=== PATIENT | female | born 1980 | race Caucasian/White ===

== ENCOUNTER 2017-05-26 16:51 | Emergency (ER) | payer SELFPAY | END 2017-05-26 19:28 | disposition home or self-care (01) | PROVIDERS: Emergency Provider Emergency Medicine; Visit Provider Emergency Medicine | DX: N83.201 Unspecified ovarian cyst, right side (principal); Z88.1 Allergy status to other antibiotic agents; Z88.6 Allergy status to analgesic agent; F17.210 Nicotine dependence, cigarettes, uncomplicated | CPT/HCPCS: 74176; 80053; 80305; 81001; 85025; 96360; 96375; 99284 ==

== ENCOUNTER → 2017-07-09 14:34 | Outpatient (CLI) | payer BC, SELFPAY ==
--- NOTE | 2017-07-09 14:50 | US_ITS ---
US transvaginal HISTORY: ITS.REASON: adnexal mass ORDERING PHYSICIAN: Zhen Rodriguez MD PATIENT AGE: 37 years COMPARISON: CT scan of 05/26/2017 FINDINGS: There has been a prior hysterectomy and left oophorectomy. The right ovary is visualized measuring 2 x 2.7 cm containing multiple small follicles and one complex cyst at 1.4 x 1.4 cm. Blood flow is present in the right ovary. No cul-de-sac fluid evident. IMPRESSION: 1.4 cm complex right ovarian cyst with other smaller follicles noted. Prior hysterectomy and left oophorectomy
== END ==
PROVIDERS: PCP Family Medicine; Visit Provider Obstetrics & Gynecology
DX: R10.2 Pelvic and perineal pain (principal)
CPT/HCPCS: 76830

== ENCOUNTER → 2017-07-23 14:03 | Outpatient (CLI) | payer BC, SELFPAY ==
[2017-07-23 14:07] LABS: Microscopic, Urine URINE MICROSCOPIC (MICROSCOPIC)
[2017-07-23 14:35] LABS: Appearance,Urine CLEAR (Clear); Bilirubin,Urine Negative (Negative); Blood, Urine Negative (Negative); Color,Urine YELLOW (Yellow); Glucose,Urine (UA) Negative (Negative); Ketones,Urine Negative (Negative); Leukocyte Esterase,Urine Negative (Negative); Nitrate,Urine Negative (Negative); Protein,Urine Negative (Negative); Urobilinogen,Urine 0.2 EU/dl (0.2)
[2017-07-23 14:54] LABS: Bacteria,Urine Trace /lpf
[2017-07-23 15:01] LABS: Basophils # 0.1 K/mm3 (0-0.2); Basophils % 0.7 % (0.1-2.0); Eosinophils # 0.2 K/mm3 (0.0-0.4); Eosinophils % 2.5 % (0.1-12.0); Hematocrit 41.5 % (37.0-47.0); Lymphocytes # 2.8 K/mm3 (0.7-4.5); Lymphocytes % 33.3 K/mm3 (10-50); Mean Corpuscular HGB Conc 33.6 g/dL (31.8-35.4); Mean Corpuscular Hemoglobin 29.6 pg (27.0-31.2); Mean Corpuscular Volume 87.9 fl (81-99); Mean Platelet Volume 8.2 fl (7.4-10.4); Monocytes # 0.4 K/mm3 (0.1-1.0); Monocytes % 4.6 % (1.7-9.3); Neutrophils # 4.9 K/mm3 (1.8-7.8); Neutrophils % 58.8 % (37.0-80.0); Platelet Count 317 K/mm3 (142-424); Red Blood Count 4.73 M/mm3 (4.20-5.40); White Blood Count 8.4 K/mm3 (4.8-10.8)
[2017-07-23 15:26] LABS: Alanine Aminotransferase 59 U/L (12-78); Albumin Level 3.9 gm/dL (3.4-5.0); Albumin/Globulin Ratio 1.2 (1.1-1.8); Alkaline Phosphatase 54 U/L (46-116); Anion Gap 11.9 mEq/L (5-15); Aspartate Amino Transferase 23 U/L (15-37); Bilirubin,Total 0.3 mg/dL (0.2-1.0); Blood Urea Nitrogen 13 mg/dL (7-18); Calcium 8.7 mg/dL (8.5-10.1); Carbon Dioxide 26 mmol/L (21.0-32.0); Chloride 105 mmol/L (98-107); Estimated Glomerular Filt Rate 82 ml/min (>60); GFR (African American) 99 ML/MIN (>60); Globulin 3.3 gm/dl (1.3-3.2); Glucose 87 mg/dL (74-106); Potassium 3.9 mmoL/L (3.5-5.1); Sodium 139 mmol/L (136-145); Total Protein,Serum 7.2 gm/dL (6.4-8.2)
== END ==
PROVIDERS: PCP Family Medicine; Visit Provider Obstetrics & Gynecology
DX: R10.2 Pelvic and perineal pain (principal); Z01.812 Encounter for preprocedural laboratory examination
CPT/HCPCS: 36415; 80053; 81001; 85025

== ENCOUNTER 2017-08-05 05:59 | Day surgery (SDC) | payer BC, SELFPAY ==
[2017-08-05] VITALS (13 sets, daily range): BP systolic 103–128; BP diastolic 56–88; PULSE 59–77; RESP 13–19; TEMP 36.2–43; O2SAT 93–100; BMI 31.4
--- NOTE | 2017-08-05 07:16 | HMH.ANESCL ---
[facility] Anesthesia Checklist - Patient Identification Patient Identification: Arm Band, Verbal (Name & ) - Structural Data Admitted From: Home Planned Operative Procedure/s: dx. lap Consent for Planned Operative Procedure(s) Verified: Yes Verified Documents: Surgical Consent - NPO Status Verified Time NPO: 00:00 - Chart Verification Results Verified: CBC, BMP - Additional verifications Patient : No Anesthesia Reactions: No Hx Blood Transfusions: No Blood Transfusion Reaction: No Cephalosporin Allergy: No Previous Colonoscopy: No - Cardiovascular Assessment Heart Sounds: S1 & S2 Pulse Strength: Baseline Pulse Rhythm: Regular Peripheral Edema: No - Airway Assessment C-Spine Mobility Assessed: Yes TMJ Mobility Assessed: Yes Dentition: Good Dentition - Neurological Assessment Level of Consciousness: Awake, Alert, Appropriate Hx Seizures: No Numbness or tingling in extremities: No - Anesthesia Plan Anesthesia Risk discussed: Yes Anesthesia Plan: Verified ASA Class: II Anesthesia Type: MAC [facility] Anesthesia HX I have reviewed the patient's past medical history: Yes Medical History: Reports:: Anxiety, Hepatitis Denies:: Cancer, Diabetes Mellitus Type 1, Diabetes Mellitus Type 2, MRSA, Seizures Other Medical History: Reports: Other. Denies: Blood Transfusion Reaction Laterality Cases: Bilateral: Tonsillectomy Other Surgeries: Yes: Colonoscopy, Dilation and Curettage, Hysterectomy-Partial, Ureter Stent Amputation: No Fractures: No *Family Hx:: Coronary Artery Disease, Cancer
--- NOTE | 2017-08-05 08:09 | HMH.OPNOTE ---
Date of procedure: 08/05/17 Pre-op Diagnosis:: 1. Pelvic pain. 2. Right ovarian cyst. Post-op Diagnosis:: 1. Pelvic pain. 2. Right ovarian cyst. 3. Endometriosis. Procedure performed:: Pelviscopic right salpingo-oophorectomy Surgeon:: Zhen Rodriguez MD [employer]IST:: Leo Maierferty Anesthesia: GETA Estimated blood loss (mL): 10 Operative findings:: 1. Right ovarian cyst. 2. Diffuse endometriosis. Operative note:: After the patient was prepped and draped in usual fashion and general anesthesia was administered, a weighted speculum was placed within the posterior fourchette of the vagina, and a moist sponge stick was inserted into the vagina for elevation of the vaginal cuff during the laparoscopy. After appropriate regloving, the skin on either side of the umbilicus was tented up with towel clips. A small incision was made in the base of the umbilicus with a knife, and a Veress needle was inserted into the abdominal cavity. After a demonstration of negative pressure, and adequate phisoperitoneum was created with carbon dioxide gas. The Veress needle was then replaced with a trocar and cannula, using the [employer] system, and the trocar placed with the laparoscope. The uterus and left adnexa was surgically absent. The right tube and ovary were identified. The ovary was cystic. Diffuse bluish implants of endometriosis were noted throughout the pelvis. The upper abdomen was explored. Liver and spleen edges were visible and felt to be normal, as was the appendix. After transillumination and under direct visualization, accessory ports were placed in the right and left lower quadrants. A second port was required in the left lower quadrant to enhance visibility. Using a combination of endo-Babcocks and Endo LYN staplers, the right adnexa was grasped and the right infundibulopelvic ligament was crossclamped and stapled, thus removing the right adnexa. There was no undue bleeding. An Endo Catch basket was placed to the right lower quadrant port, and the specimen was brought out through that port. The fascial peritoneum was then reduced, and the instruments were removed under direct visualization. The skin incisions were infused with a dilute solution of Marcaine, as a local anesthetic, and closed with subcuticular sutures of 3-0 Vicryl. The sponge stick was removed from the vagina. The estimated blood loss was less than 10 cc. The patient tolerated procedure well, and was taken to PACU in excellent condition. She will receive Delestrogen 30 mg IM in PACU. She will be discharged today, if her vital signs are stable. Condition: stable Disposition: same day Specimens:: Right adnexa Complications:: None
--- NOTE | 2017-08-05 08:14 | P.OP_ITS ---
Date of procedure: 08/05/17 Pre-op Diagnosis:: 1. Pelvic pain. 2. Right ovarian cyst. Post-op Diagnosis:: 1. Pelvic pain. 2. Right ovarian cyst. 3. Endometriosis. Procedure performed:: Pelviscopic right salpingo-oophorectomy Surgeon:: Zhen Rodriguez MD DE ICER:: Leo Maierferty Anesthesia: GETA Estimated blood loss (mL): 10 Operative findings:: 1. Right ovarian cyst. 2. Diffuse endometriosis. Operative note:: After the patient was prepped and draped in usual fashion and general anesthesia was administered, a weighted speculum was placed within the posterior fourchette of the vagina, and a moist sponge stick was inserted into the vagina for elevation of the vaginal cuff during the laparoscopy. After appropriate regloving, the skin on either side of the umbilicus was tented up with towel clips. A small incision was made in the base of the umbilicus with a knife, and a Veress needle was inserted into the abdominal cavity. After a demonstration of negative pressure, and adequate phisoperitoneum was created with carbon dioxide gas. The Veress needle was then replaced with a trocar and cannula, using the [employer] system, and the trocar placed with the laparoscope. The uterus and left adnexa was surgically absent. The right tube and ovary were identified. The ovary was cystic. Diffuse bluish implants of endometriosis were noted throughout the pelvis. The upper abdomen was explored. Liver and spleen edges were visible and felt to be normal, as was the appendix. After transillumination and under direct visualization, accessory ports were placed in the right and left lower quadrants. A second port was required in the left lower quadrant to enhance visibility. Using a combination of endo-Babcocks and Endo LYN staplers, the right adnexa was grasped and the right infundibulopelvic ligament was crossclamped and stapled, thus removing the right adnexa. There was no undue bleeding. An Endo Catch basket was placed to the right lower quadrant port, and the specimen was brought out through that port. The fascial peritoneum was then reduced, and the instruments were removed under direct visualization. The skin incisions were infused with a dilute solution of Marcaine, as a local anesthetic, and closed with subcuticular sutures of 3-0 Vicryl. The sponge stick was removed from the vagina. The estimated blood loss was less than 10 cc. The patient tolerated procedure well, and was taken to PACU in excellent condition. She will receive Delestrogen 30 mg IM in PACU. She will be discharged today, if her vital signs are stable. Condition: stable Disposition: same day Specimens:: Right adnexa Complications:: None
--- NOTE | 2017-08-05 08:22 | P.PN_ITS ---
[facility] Anesthesia Record Part I Intake, IV Amount: 550 Estimated blood loss (mL): 10 Urine output (mL): 10 Blood Products used (#): none Blood Pressure: 125/88 SaO2: 97 Pulse Rate: 70 Respiratory Rate: 18 Temperature: 97.7 F Patient is:: Awake, Drowsy Stable to PACU at:: 08:20
--- NOTE | 2017-08-05 08:22 | HMH.ANESII ---
[facility] Anesthesia Record Part II Discharge Time: 08:50 Destination: Surgical Day Care (OP Surgery) PACU nurse assessment reviewed?: Yes Patient Condition:: Good Anesthesia Complications:: None
[2017-08-05 09:42] LABS: Hematocrit 38.3 % (37.0-47.0); Hemoglobin 12.3 g/dL (12.2-16.2)
--- NOTE | 2017-08-05 18:21 | PC.NURSE ---
noted rash at IPC lines, legs and lower abdomen, Dr Rodriguez aware EUSEBIO
== END 2017-08-05 09:50 | disposition home or self-care (01) ==
LOC: OR 06:01
PROVIDERS: PCP Family Medicine; Visit Provider Obstetrics & Gynecology
PROC: (CPT 58661; principal; 2017-08-05 07:30)
DX: N83.201 Unspecified ovarian cyst, right side (principal); N80.3 Endometriosis of pelvic peritoneum
CPT/HCPCS: 58661; 36415; 85014; 85018; 96372; 96374; J0131; J1956; J2405; J2710

== ENCOUNTER 2017-08-06 19:42 | Emergency (ER) | payer BC, SELFPAY ==
[2017-08-06 19:48] VITALS: BP 128/62; PULSE 77; RESP 12; TEMP 36.4; O2SAT 98; BMI 31.4
[2017-08-06 20:49] LABS: Basophils # 0.1 K/mm3 (0-0.2); Basophils % 0.3 % (0.1-2.0); Eosinophils # 0.1 K/mm3 (0.0-0.4); Eosinophils % 0.5 % (0.1-12.0); Hematocrit 36.1 % (37.0-47.0); Hemoglobin 11.3 g/dL (12.2-16.2); Lymphocytes # 2.9 K/mm3 (0.7-4.5); Lymphocytes % 19.1 K/mm3 (10-50); Mean Corpuscular HGB Conc 31.1 g/dL (31.8-35.4); Mean Corpuscular Hemoglobin 28.7 pg (27.0-31.2); Mean Corpuscular Volume 92.1 fl (81-99); Mean Platelet Volume 8.5 fl (7.4-10.4); Monocytes # 0.5 K/mm3 (0.1-1.0); Neutrophils # 11.6 K/mm3 (1.8-7.8); Neutrophils % 77.1 % (37.0-80.0); Platelet Count 316 K/mm3 (142-424); Red Blood Count 3.92 M/mm3 (4.20-5.40); Red Cell Distribution Width 12.8 % (11.5-17.5); White Blood Count 15.1 K/mm3 (4.8-10.8)
[2017-08-06 21:13] LABS: MANUAL DIFFERENTIAL MANUAL DIFFERENTIAL (MANUAL DIFF)
[2017-08-06 21:16] LABS: Alanine Aminotransferase 39 U/L (12-78); Albumin Level 3.5 gm/dL (3.4-5.0); Albumin/Globulin Ratio 1.1 (1.1-1.8); Alkaline Phosphatase 52 U/L (46-116); Anion Gap 11.2 mEq/L (5-15); Aspartate Amino Transferase 16 U/L (15-37); Bilirubin,Total 0.3 mg/dL (0.2-1.0); Blood Urea Nitrogen 10 mg/dL (7-18); CKMB Relative Index 0.8 U/L (0-4.0); Calcium 8.2 mg/dL (8.5-10.1); Carbon Dioxide 26 mmol/L (21.0-32.0); Chloride 106 mmol/L (98-107); Creatine Kinase 212 U/L (26-192); Creatine Kinase MB 1.8 mg/ml (0.0-3.6); Creatinine Clearance Estimated 123 mL/min (0-300); Creatinine,Serum 0.92 mg/dL (0.55-1.02); Estimated Glomerular Filt Rate 69 ml/min (>60); GFR (African American) 84 ML/MIN (>60); Globulin 3.3 gm/dl (1.3-3.2); Glucose 96 mg/dL (74-106); Potassium 3.2 mmoL/L (3.5-5.1); Sodium 140 mmol/L (136-145); Total Protein,Serum 6.8 gm/dL (6.4-8.2); Troponin I < 0.02 ng/ml (0.00-0.06)
[2017-08-06 21:22] LABS: Eosinophils % 4 % (0-3); Lymphocytes % 22 % (10-50); Monocytes % 1 % (2-9); Neutrophils % 70 % (42-76); Platelet Estimate Normal; Total Cells Counted 100
[2017-08-06 21:23] LABS: Hypochromasia 1+; Polychromasia 1+; RBC Morphology Normal
--- NOTE | 2017-08-06 21:26 | HMH.EDGENADL ---
ED Disposition Clinical Impression: Vasovagal episode, Post-operative pain Disposition: Home, Self-Care Condition on Discharge: Good Instructions: DI for Acute Pain -- Adult Additional Instructions: call dr arango for follow up Referrals: Leo Mccain MD [Primary Care Provider] - - Critical Care Critical Care Time: No Attestation: On 08/06/17, the high probability of a clinically significant, sudden or life threatening deterioration of the following system(s) required my full and direct attention, intervention and personal management. The time I documented below is in addition to time spent performing reported procedures but includes the following listed in this critical care notation. Medical Decision Making - Medical Records Medical records reviewed: Yes: I reviewed the patient's medical records. Vital Signs: 08/06/17 19:48 08/06/17 21:45 Temperature 97.6 F Temperature Source Oral Pulse Rate [Right Radial] 77 57 L Respiratory Rate 12 16 Blood Pressure [Right Arm] 128/62 127/76 Blood Pressure Mean [Right Arm] 84 93 Blood Pressure Source [Right Arm] Automatic Cuff Automatic Cuff Blood Pressure Position [Right Arm] Sitting Supine 02 Sat by Pulse Oximetry 98 100 Oxygen Delivery Method Room Air Room Air - Lab Data Lab results reviewed: Yes: I reviewed the patient's lab results. Lab Results 08/06/17 20:05: Amylase 41, Lipase 105 08/06/17 20:15: WBC 15.1 H, RBC 3.92 L, Hgb 11.3 L, Hct 36.1 L, MCV 92.1, MCH 28.7, MCHC 31.1 L, RDW 12.8, Plt Count 316, MPV 8.5, Neut % (Auto) 77.1, Lymph % (Auto) 19.1, [place] % (Auto) 3.0, Eos % (Auto) 0.5, Baso % (Auto) 0.3, Neut # (Auto) 11.6 H, Lymph # (Auto) 2.9, [place] # (Auto) 0.5, Eos # (Auto) 0.1, Baso # (Auto) 0.1, Total Counted 100, Neutrophils % (Manual) 70, Band Neutrophils % 3.0, Lymphocytes % (Manual) 22, Monocytes % (Manual) 1 L, Eosinophils % (Manual) 4 H, Differential Comment , Platelet Estimate Normal, RBC Morphology Normal, Polychromasia 1+, Hypochromasia 1+ 08/06/17 20:15: Sodium 140, Potassium 3.2 L, Chloride 106, Carbon Dioxide 26, Anion Gap 11.2, BUN 10, Creatinine 0.92, Estimated Creat Clear 123, Estimated GFR 69, Est GFR ( Amer) 84, Glucose 96, Calcium 8.2 L, Total Bilirubin 0.3, AST 16, ALT 39, Alkaline Phosphatase 52, Total Creatine Kinase 212 H, CK-MB (CK-2) 1.8, CK-MB (CK-2) Rel Index 0.8, Troponin I < 0.02, Total Protein 6.8, Albumin 3.5, Globulin 3.3 H, Albumin/Globulin Ratio 1.1 08/06/17 20:15: Lactic Acid 2.0 08/06/17 21:50: Urine Color Yellow, Urine Appearance Clear, Urine pH 6.0, Ur Specific [place] >= 1.030, Urine Protein Trace, Urine Glucose (UA) Negative, Urine Ketones Trace, Urine Blood Negative, Urine Nitrate Negative, Urine Bilirubin 1+ A, Urine Urobilinogen 0.2, Ur Leukocyte Esterase Negative, Urine RBC Occasional, Urine WBC 3-5, Ur Squamous Epith Cells 20-50, Urine Bacteria 1+, Urine Mucus 2+ Result diagrams: 08/06/17 20:15 08/06/17 20:15 Orders (Tests/Meds): ED MEDICATIONS Generic Name Dose Route Start Last Admin Trade Name Freq PRN Reason Stop Dose Admin Oxycodone/Acetaminophen 1 each 08/06/17 23:02 Percocet 7.5/325mg Tablet PO 08/06/17 23:03 ONCE ONE Discontinued Medications Generic Name Dose Route Start Last Admin Trade Name Freq PRN Reason Stop Dose Admin Sodium Chloride 1,000 mls @ 999 mls/hr 08/06/17 20:15 08/06/17 20:48 Sod Chlor 0.9% 1000ml Bag IV 08/06/17 21:15 999 mls/hr .Q1H1M HUNG Administration Sodium Chloride 1,000 mls @ 999 mls/hr 08/06/17 22:00 08/06/17 22:00 Sod Chlor 0.9% 1000ml Bag IV 08/06/17 23:00 999 mls/hr .Q1H1M HUNG Administration ORDERS Category Date Time Status Blood Culture Stat Micro 08/06/17 20:15 Received - Physician Consults Physician Consulted: cipriano Reason -: Pt condition - Stew Inquiry Pt receiving controlled substance: No General Adult HPI - General Chief complaint: PAIN Stated complaint: surg:Seizier Time Seen by Elkin
--- NOTE | 2017-08-06 21:29 | ED_ITS ---
ED Disposition Clinical Impression: Vasovagal episode, Post-operative pain Disposition: Home, Self-Care Condition on Discharge: Good Instructions: DI for Acute Pain -- Adult Additional Instructions: call dr arango for follow up Referrals: Leo Mccain MD [Primary Care Provider] - - Critical Care Critical Care Time: No Attestation: On 08/06/17, the high probability of a clinically significant, sudden or life threatening deterioration of the following system(s) required my full and direct attention, intervention and personal management. The time I documented below is in addition to time spent performing reported procedures but includes the following listed in this critical care notation. Medical Decision Making - Medical Records Medical records reviewed: Yes: I reviewed the patient's medical records. Vital Signs: 08/06/17 19:48 08/06/17 21:45 Temperature 97.6 F Temperature Source Oral Pulse Rate [Right Radial] 77 57 L Respiratory Rate 12 16 Blood Pressure [Right Arm] 128/62 127/76 Blood Pressure Mean [Right Arm] 84 93 Blood Pressure Source [Right Arm] Automatic Cuff Automatic Cuff Blood Pressure Position [Right Arm] Sitting Supine 02 Sat by Pulse Oximetry 98 100 Oxygen Delivery Method Room Air Room Air - Lab Data Lab results reviewed: Yes: I reviewed the patient's lab results. Lab Results 08/06/17 20:05: Amylase 41, Lipase 105 08/06/17 20:15: WBC 15.1 H, RBC 3.92 L, Hgb 11.3 L, Hct 36.1 L, MCV 92.1, MCH 28.7, MCHC 31.1 L, RDW 12.8, Plt Count 316, MPV 8.5, Neut % (Auto) 77.1, Lymph % (Auto) 19.1, [place] % (Auto) 3.0, Eos % (Auto) 0.5, Baso % (Auto) 0.3, Neut # ( Auto) 11.6 H, Lymph # (Auto) 2.9, [place] # (Auto) 0.5, Eos # (Auto) 0.1, Baso # ( Auto) 0.1, Total Counted 100, Neutrophils % (Manual) 70, Band Neutrophils % 3.0 , Lymphocytes % (Manual) 22, Monocytes % (Manual) 1 L, Eosinophils % (Manual) 4 H, Differential Comment , Platelet Estimate Normal, RBC Morphology Normal, Polychromasia 1+, Hypochromasia 1+ 08/06/17 20:15: Sodium 140, Potassium 3.2 L, Chloride 106, Carbon Dioxide 26, Anion Gap 11.2, BUN 10, Creatinine 0.92, Estimated Creat Clear 123, Estimated GFR 69, Est GFR ( Amer) 84, Glucose 96, Calcium 8.2 L, Total Bilirubin 0.3, AST 16, ALT 39, Alkaline Phosphatase 52, Total Creatine Kinase 212 H, CK- MB (CK-2) 1.8, CK-MB (CK-2) Rel Index 0.8, Troponin I < 0.02, Total Protein 6.8 , Albumin 3.5, Globulin 3.3 H, Albumin/Globulin Ratio 1.1 08/06/17 20:15: Lactic Acid 2.0 08/06/17 21:50: Urine Color Yellow, Urine Appearance Clear, Urine pH 6.0, Ur Specific [place] >= 1.030, Urine Protein Trace, Urine Glucose (UA) Negative, Urine Ketones Trace, Urine Blood Negative, Urine Nitrate Negative, Urine Bilirubin 1+ A, Urine Urobilinogen 0.2, Ur Leukocyte Esterase Negative, Urine RBC Occasional, Urine WBC 3-5, Ur Squamous Epith Cells 20-50, Urine Bacteria 1+ , Urine Mucus 2+ Result diagrams: 08/06/17 20:15 08/06/17 20:15 Orders (Tests/Meds): ED MEDICATIONS Generic Name Dose Route Start Last Admin Trade Name Freq PRN Reason Stop Dose Admin Oxycodone/Acetaminophen 1 each 08/06/17 23:02 Percocet 7.5/325mg Tablet PO 08/06/17 23:03 ONCE ONE Discontinued Medications Generic Name Dose Route Start Last Admin Trade Name Freq PRN Reason Stop Dose Admin Sodium Chloride 1,000 mls @ 999 mls/hr 08/06/17 20:15 08/06/17 20:48 Sod Chlor 0.9% 1000ml Bag IV 08/06/17
[2017-08-06 21:45] VITALS: BP 127/76; PULSE 57; RESP 16; O2SAT 100
[2017-08-06 21:48] LABS: Amylase 41 U/L (25-125); Lipase 105 u/L (73-393)
[2017-08-06 21:54] LABS: Appearance,Urine CLEAR (Clear); Blood, Urine Negative (Negative); Color,Urine YELLOW (Yellow); Glucose,Urine (UA) Negative (Negative); Ketones,Urine TRACE (Negative); Leukocyte Esterase,Urine Negative (Negative); Microscopic, Urine URINE MICROSCOPIC (MICROSCOPIC); Nitrate,Urine Negative (Negative); Protein,Urine TRACE (Negative); Specific Gravity, Urine >= 1.030 (1.005-1.030); Urobilinogen,Urine 0.2 EU/dl (0.2)
[2017-08-06 21:55] LABS: Bilirubin,Urine 1+ (Negative)
[2017-08-06 22:01] LABS: Bacteria,Urine 1+ /lpf; Mucus,Urine 2+ /lpf; RBC,Urine Occasional #/hpf (0-3); Squamous Epithelial Cell,Urine 20-50 #/hpf (0-5)
--- NOTE | 2017-08-06 22:31 | PC.NURSE ---
scallop binder OB Dr. Gaytan at bedside at this time
[2017-08-06 23:11] VITALS: BP 114/75; PULSE 80; RESP 18; TEMP 36.7; O2SAT 98
== END 2017-08-06 23:16 | disposition home or self-care (01) ==
PROVIDERS: Emergency Medicine; Emergency Provider Emergency Medicine; PCP Family Medicine
DX: G89.18 Other acute postprocedural pain (principal); R55 Syncope and collapse; D64.9 Anemia, unspecified; M25.511 Pain in right shoulder; F41.9 Anxiety disorder, unspecified; F17.210 Nicotine dependence, cigarettes, uncomplicated; Z88.1 Allergy status to other antibiotic agents; Z88.6 Allergy status to analgesic agent
CPT/HCPCS: 80053; 81001; 82150; 82550; 82553; 83605; 83690; 84484; 85007; 85025; 87040; 93005; 96365; 96366; 99283

== ENCOUNTER 2019-10-24 09:20 | Emergency (ER) | payer MEDICAID, SELFPAY ==
[2019-10-24 09:24] VITALS: BP 121/86; PULSE 68; RESP 18; TEMP 36.7; O2SAT 99; BMI 28.1
--- NOTE | 2019-10-24 09:50 | HMH.EDNVD ---
ED Disposition Clinical Impression: Gastroenteritis Disposition: Home, Self-Care Condition on Discharge: Good Instructions: DI for Diarrhea and Traveler's Diarrhea -- Adult, DI for Diarrhea and Traveler's Diarrhea -- Child, DI for Nausea -- Adult, DI for Nausea -- Child Prescriptions: Ondansetron [Zofran 4mg ODT] 4 mg PO TID PRN 4 Days #15 tab.rapdis PRN Reason: Nausea Transmission Status: Received by [id number] Referrals: Damien Fofana APRN [Primary Care Provider] - - Critical Care Critical Care Time: No Attestation: On 10/24/19, the high probability of a clinically significant, sudden or life threatening deterioration of the following system(s) required my full and direct attention, intervention and personal management. The time I documented below is in addition to time spent performing reported procedures but includes the following listed in this critical care notation. Medical Decision Making - Medical Records Medical records reviewed: Yes: I reviewed the patient's medical records. - Stew Inquiry Pt receiving controlled substance: No Vital Signs: 10/24/19 09:24 Temperature 98.1 F Temperature Source Oral Pulse Rate [Radial] 68 Respiratory Rate 18 Blood Pressure [Right Arm] 121/86 Blood Pressure Mean [Right Arm] 97 Blood Pressure Source [Right Arm] Automatic Cuff Blood Pressure Position [Right Arm] Sitting 02 Sat by Pulse Oximetry 99 Oxygen Delivery Method Room Air - Lab Data Lab results reviewed: Yes: I reviewed the patient's lab results. Lab Results 10/24/19 09:45: WBC 9.7, RBC 5.01, Hgb 14.9, Hct 45.3, MCV 90.4, MCH 29.7, MCHC 32.9, RDW 13.8, Plt Count 296, MPV 8.4, Neut % (Auto) 57.1, Lymph % (Auto) 33.8, [place] % (Auto) 3.3, Eos % (Auto) 4.1, Baso % (Auto) 1.6, Neut # (Auto) 5.6, Lymph # (Auto) 3.3, [place] # (Auto) 0.3, Eos # (Auto) 0.4, Baso # (Auto) 0.2 10/24/19 09:45: Sodium 141, Potassium 4.0, Chloride 108 H, Carbon Dioxide 26, Anion Gap 11.0, BUN 15, Creatinine 0.80, Estimated Creat Clear 124, Estimated GFR 81, Est GFR ( Amer) 98, Glucose 81, Calcium 9.6, Total Bilirubin 0.5, AST 61 H, ALT 57, Alkaline Phosphatase 72, Total Protein 7.9, Albumin 4.6, Globulin 3.3 H, Albumin/Globulin Ratio 1.4 Result diagrams: 10/24/19 09:45 10/24/19 09:45 Orders (Tests/Meds): ED MEDICATIONS Generic Name Dose Route Start Last Admin Trade Name Freq PRN Reason Stop Dose Admin Sodium Chloride 1,000 mls @ 999 mls/hr 10/24/19 09:45 10/24/19 09:51 Sod Chlor 0.9% 1000ml Bag IV 10/24/19 10:45 999 mls/hr .Q1H1M HUNG Administration Discontinued Medications Generic Name Dose Route Start Last Admin Trade Name Freq PRN Reason Stop Dose Admin Ondansetron HCl 4 mg 10/24/19 09:36 10/24/19 09:50 Zofran 4mg/2ml Vial IV 10/24/19 09:37 4 mg ONCE ONE Administration Nausea/Vomiting/Diarrhea HPI - General Chief complaint: Nausea/Vomiting/Diarrhea Stated complaint: vomit diarrhea stomach pain Time Seen by Provider: 10/24/19 09:50 Mode of Arrival: Ambulatory Source of Information: Patient Limitations: No Limitations Description of Symptoms (Recalled from ER Triage Doc. by RN): States that she began vomiting with diarrhea approx. 1 hour ago. - History of Present Illness HPI Narrative: 39-year-old female presents the ED with acute nausea vomiting diarrhea. She states her symptoms started this morning and progressively gotten worse until she presented here to the ED. She describes some vague diffuse abdominal pain that is colicky in nature. She rates at its crescendo pains may be 2 out of 10. Patient denies any recent fever shakes or chills. Patient denies any shortness of breath or cough. - Related Data Previous Rx's Medication Instructions Recorded estradiol 2 mg tablet 2 mg PO DAILY 30 Days #30 tab 07/11/18 Ondansetron [Zofran 4mg ODT] 4 mg PO Q8H PRN 10 Days #30 02/15/19 tab.rapdis Ondansetron [Zofran 4mg ODT] 4 mg PO TID PRN 4 Days #
[2019-10-24 09:59] LABS: Basophils # 0.2 K/mm3 (0-0.2); Basophils % 1.6 % (0.1-2.0); Eosinophils # 0.4 K/mm3 (0.0-0.4); Eosinophils % 4.1 % (0.1-12.0); Hematocrit 45.3 % (37.0-47.0); Hemoglobin 14.9 g/dL (12.2-16.2); Lymphocytes # 3.3 K/mm3 (0.7-4.5); Lymphocytes % 33.8 % (10-50); Mean Corpuscular HGB Conc 32.9 g/dL (31.8-35.4); Mean Corpuscular Hemoglobin 29.7 pg (27.0-31.2); Mean Corpuscular Volume 90.4 fl (81-99); Mean Platelet Volume 8.4 fl (7.4-10.4); Monocytes # 0.3 K/mm3 (0.1-1.0); Monocytes % 3.3 % (1.7-9.3); Neutrophils # 5.6 K/mm3 (1.8-7.8); Neutrophils % 57.1 % (37.0-80.0); Platelet Count 296 K/mm3 (142-424); Red Blood Count 5.01 M/mm3 (4.20-5.40); Red Cell Distribution Width 13.8 % (11.5-17.5); White Blood Count 9.7 K/mm3 (4.8-10.8)
[2019-10-24 10:05] LABS: Chloride 108 mmol/L (98-107); Sodium 141 mmol/L (136-145)
[2019-10-24 10:07] LABS: Alanine Aminotransferase 57 U/L (12-78); Aspartate Amino Transferase 61 U/L (14-36); Blood Urea Nitrogen 15 mg/dl (7-17); Creatinine Clearance Estimated 124 mL/min (50-200); Estimated Glomerular Filt Rate 81 ml/min (>60); GFR (African American) 98 ML/MIN (>60)
[2019-10-24 10:08] LABS: Albumin Level 4.6 g/dl (3.5-5.0); Albumin/Globulin Ratio 1.4 (1.1-1.8); Alkaline Phosphatase 72 U/L (38-126); Bilirubin,Total 0.5 mg/dl (0.2-1.3); Calcium 9.6 mg/dl (8.4-10.2); Carbon Dioxide 26 mmol/L (22.0-30.0); Globulin 3.3 g/dL (1.3-3.2); Glucose 81 mg/dl (74-100); Total Protein,Serum 7.9 g/dl (6.3-8.2)
[2019-10-24 10:35] VITALS: BP 121/86; PULSE 68; RESP 18; TEMP 36.7; O2SAT 99
== END 2019-10-24 10:37 | disposition home or self-care (01) ==
PROVIDERS: Emergency Provider Family Medicine; PCP Nurse Practitioner Family
DX: K52.9 Noninfective gastroenteritis and colitis, unspecified (principal); F41.9 Anxiety disorder, unspecified; Z90.09 Acquired absence of other part of head and neck; F17.210 Nicotine dependence, cigarettes, uncomplicated
CPT/HCPCS: 80053; 85025; 96365; 96375; 99282; J2405

== ENCOUNTER 2019-11-27 10:31 | Emergency (ER) | payer MEDICAID, SELFPAY ==
[2019-11-27 10:45] VITALS: BP 102/59; PULSE 72; RESP 18; TEMP 36.7; O2SAT 98; BMI 29.0
[2019-11-27 11:02] VITALS: BP 106/57; PULSE 64; O2SAT 98
--- NOTE | 2019-11-27 11:33 | CT_ITS ---
PROCEDURE: CT ABDOMEN PELVIS WO CON CLINICAL INDICATION: diarrhea, nausea, abd pain COMPARISON: ABDPELW/O CT ABD PELVIS W/O CONTRAST from 05/26/2017 CT ABDOMEN PELVIS W CON from 05/12/2019 TECHNIQUE: Axial images obtained with sagittal and coronal reformats. All CT scans at the facility use one or more dose reduction, viz: automated exposure control, ma/kV adjustment per patient size (including targeted exams where dose is matched to indication, i.e. head), or iterative reconstruction technique. FINDINGS: LOWER THORAX: No acute finding ABDOMEN & PELVIS: The liver, spleen adrenal glands, pancreas, has an unremarkable appearance. There are nonobstructing punctate calculi the right kidney measuring up to 3 mm. Small hyperdensity is noted over the lower pole of the right kidney at 3 mm possibly due to small hyperdense cyst the. No ureteral calculi. No hydronephrosis. There is a small umbilical hernia containing fat. No evidence of appendicitis. There are post hysterectomy changes. No intestinal obstruction or free air. There is mild nonspecific thickening of the transverse and descending colon and sigmoid colon. Scattered small lymph nodes are present in the inguinal regions. No acute bony anomalies. IMPRESSION: Mild thickening of the transverse and descending and sigmoid colon which could be due to nondistention or mild colitis. Nonobstructing right nephrolithiasis Dictated by: Mateus Pedersen MD 11/27/2019 12:00 Electronically signed by Mateus Pedersen MD in [place] 11/27/2019 12:00
[2019-11-27 11:34] LABS: Basophils # 0.1 K/mm3 (0-0.2); Basophils % 0.8 % (0.1-2.0); Eosinophils # 0.4 K/mm3 (0.0-0.4); Hematocrit 39.9 % (37.0-47.0); Hemoglobin 14.1 g/dL (12.2-16.2); Lymphocytes # 3.2 K/mm3 (0.7-4.5); Lymphocytes % 31.6 % (10-50); Mean Corpuscular HGB Conc 35.3 g/dL (31.8-35.4); Mean Corpuscular Hemoglobin 30.9 pg (27.0-31.2); Mean Corpuscular Volume 87.5 fl (81-99); Mean Platelet Volume 8.9 fl (7.4-10.4); Monocytes # 0.3 K/mm3 (0.1-1.0); Monocytes % 2.7 % (1.7-9.3); Neutrophils # 6.1 K/mm3 (1.8-7.8); Neutrophils % 60.9 % (37.0-80.0); Platelet Count 291 K/mm3 (142-424); Red Blood Count 4.57 M/mm3 (4.20-5.40); Red Cell Distribution Width 13.5 % (11.5-17.5); White Blood Count 10.1 K/mm3 (4.8-10.8)
[2019-11-27 11:37] LABS: Chloride 107 mmol/L (98-107)
[2019-11-27 11:38] LABS: Potassium 4.3 mmoL/L (3.5-5.1); Sodium 137 mmol/L (136-145)
[2019-11-27 11:40] LABS: Alanine Aminotransferase 78 U/L (12-78); Aspartate Amino Transferase 65 U/L (14-36)
[2019-11-27 11:41] LABS: Albumin Level 4.2 g/dl (3.5-5.0); Albumin/Globulin Ratio 1.4 (1.1-1.8); Alkaline Phosphatase 55 U/L (38-126); Anion Gap 10.3 mEq/L (5-15); Bilirubin,Total 0.4 mg/dl (0.2-1.3); Carbon Dioxide 24 mmol/L (22.0-30.0); Globulin 2.9 g/dL (1.3-3.2); Glucose 123 mg/dl (74-100); Total Protein,Serum 7.1 g/dl (6.3-8.2)
[2019-11-27 11:45] LABS: Blood Urea Nitrogen 15 mg/dl (7-17)
[2019-11-27 11:46] LABS: Microscopic, Urine URINE MICROSCOPIC (MICROSCOPIC)
[2019-11-27 11:46] LABS: Creatinine Clearance Estimated 146 mL/min (50-200); Estimated Glomerular Filt Rate 94 ml/min (>60); GFR (African American) 114 ML/MIN (>60)
[2019-11-27 11:48] LABS: Appearance,Urine CLEAR (Clear); Bilirubin,Urine Negative (Negative); Blood, Urine Negative (Negative); Color,Urine YELLOW (Yellow); Glucose,Urine (UA) Negative (Negative); Ketones,Urine Negative (Negative); Leukocyte Esterase,Urine Negative (Negative); Nitrate,Urine Negative (Negative); Protein,Urine Negative (Negative); Specific Gravity, Urine 1.015 (1.005-1.030); Urobilinogen,Urine 0.2 EU/dl (0.2)
[2019-11-27 12:03] LABS: WBC,Urine Occasional #/hpf (0-3)
--- NOTE | 2019-11-27 13:07 | HMH.EDNVD ---
ED Disposition Clinical Impression: Colitis Disposition: Home, Self-Care Condition on Discharge: Good Instructions: DI for Nausea -- Adult, DI for Nausea -- Child, DI for Diarrhea and Traveler's Diarrhea -- Adult, DI for Diarrhea and Traveler's Diarrhea -- Child Prescriptions: Dicyclomine HCl [Bentyl 10mg capsule] 10 mg PO QID 8 Days #30 cap Transmission Status: Pending to [facility] Ciprofloxacin HCl [Cipro 500mg Tab] 500 mg PO BID 10 Days #20 tab Transmission Status: Pending to [facility] metroNIDAZOLE [Flagyl 500mg Tablet] 500 mg PO TID 10 Days #30 tab Transmission Status: Pending to [facility] Promethazine HCl 50 mg PO TID 6 Days #20 tab Transmission Status: Pending to [facility] Referrals: Damien Fofana APRN [Primary Care Provider] - - Critical Care Critical Care Time: No Attestation: On 11/27/19, the high probability of a clinically significant, sudden or life threatening deterioration of the following system(s) required my full and direct attention, intervention and personal management. The time I documented below is in addition to time spent performing reported procedures but includes the following listed in this critical care notation. Medical Decision Making - Medical Records Medical records reviewed: Yes: I reviewed the patient's medical records. - Stew Inquiry Pt receiving controlled substance: No Vital Signs: 11/27/19 10:45 11/27/19 11:02 Temperature 98.1 F Temperature Source Oral Pulse Rate [Left Radial] 72 64 Respiratory Rate 18 Blood Pressure [Left Arm] 102/59 L 106/57 L Blood Pressure Mean [Left Arm] 73 73 Blood Pressure Source [Left Arm] Automatic Cuff Automatic Cuff Blood Pressure Position [Left Arm] Supine Supine 02 Sat by Pulse Oximetry 98 98 Oxygen Delivery Method Room Air Room Air - Lab Data Lab results reviewed: Yes: I reviewed the patient's lab results. Lab Results 11/27/19 11:25: WBC 10.1, RBC 4.57, Hgb 14.1, Hct 39.9, MCV 87.5, MCH 30.9, MCHC 35.3, RDW 13.5, Plt Count 291, MPV 8.9, Neut % (Auto) 60.9, Lymph % (Auto) 31.6, [place] % (Auto) 2.7, Eos % (Auto) 4.0, Baso % (Auto) 0.8, Neut # (Auto) 6.1, Lymph # (Auto) 3.2, [place] # (Auto) 0.3, Eos # (Auto) 0.4, Baso # (Auto) 0.1 11/27/19 11:25: Sodium 137, Potassium 4.3, Chloride 107, Carbon Dioxide 24, Anion Gap 10.3, BUN 15, Creatinine 0.70, Estimated Creat Clear 146, Estimated GFR 94, Est GFR ( Amer) 114, Glucose 123 H, Calcium 9.0, Total Bilirubin 0.4, AST 65 H, ALT 78, Alkaline Phosphatase 55, Total Protein 7.1, Albumin 4.2, Globulin 2.9, Albumin/Globulin Ratio 1.4 11/27/19 11:42: Urine Color Yellow, Urine Appearance Clear, Urine pH 6.0, Ur Specific [place] 1.015, Urine Protein Negative, Urine Glucose (UA) Negative, Urine Ketones Negative, Urine Blood Negative, Urine Nitrate Negative, Urine Bilirubin Negative, Urine Urobilinogen 0.2, Ur Leukocyte Esterase Negative, Urine RBC 3-5, Urine WBC Occasional, Ur Squamous Epith Cells 3-5, Urine Bacteria None Result diagrams: 11/27/19 11:25 11/27/19 11:25 Orders (Tests/Meds): ED MEDICATIONS Discontinued Medications Generic Name Dose Route Start Last Admin Trade Name Freq PRN Reason Stop Dose Admin Ketorolac Tromethamine 30 mg 11/27/19 11:21 11/27/19 11:25 Toradol 30mg/Ml Vial IV 11/27/19 11:22 30 mg ONCE ONE Administration Ondansetron HCl 4 mg 11/27/19 11:22 11/27/19 11:25 Zofran 4mg/2ml Vial IV 11/27/19 11:23 4 mg ONCE ONE Administration - CT Data CT Scan: Abdomen, Pelvis Time Received: 12:00 Preliminary Findings: Abnormal (Colitis cold) Nausea/Vomiting/Diarrhea HPI - General Chief complaint: Nausea/Vomiting/Diarrhea Stated complaint: soa vomiting diarrhea Time Seen by Provider: 11/27/19 11:30 Mode of Arrival: Ambulatory Source of Information: Patient Limitations: No Limitations Description of Symptoms (Recalled from ER Triage Doc. by RN): Pt reports diarrhea and naus
[2019-11-27 13:24] VITALS: BP 112/74; PULSE 78; RESP 16; TEMP 36.6; O2SAT 98
== END 2019-11-27 13:26 | disposition home or self-care (01) ==
PROVIDERS: Emergency Provider Family Medicine; PCP Nurse Practitioner Family
DX: K52.9 Noninfective gastroenteritis and colitis, unspecified (principal); F41.9 Anxiety disorder, unspecified; Z90.09 Acquired absence of other part of head and neck; Z90.79 Acquired absence of other genital organ(s); F17.210 Nicotine dependence, cigarettes, uncomplicated; Z88.1 Allergy status to other antibiotic agents; Z88.5 Allergy status to narcotic agent
CPT/HCPCS: 74176; 80053; 81001; 85025; 96374; 96375; 99283; J2405

== ENCOUNTER 2020-01-15 13:57 | Emergency (ER) | payer MEDICAID, SELFPAY ==
[2020-01-15 14:26] VITALS: BP 113/74; PULSE 91; RESP 20; TEMP 36.7; O2SAT 98; BMI 23.5
--- NOTE | 2020-01-15 14:30 | HMH.EDUTC ---
[facility] [place] Disposition Clinical Impression: Poison ana paula dermatitis Disposition: Home, Self-Care Condition on Discharge: Good Instructions: Poisonous Plants: [place], [place], and [place]: Beware the Oils, Poison [place], Poison [place], Poison [place], Prednisone Additional Instructions: Over the counter Calamine lotion on rash may help to dry the rash and help with itching Over the counter Benadryl may help with itching Oatmeal bathes may help to dry the rash Start steriods tomorrow Do not scratch often cool compresses will help with itching Prescriptions: methylPREDNISolone [Medrol 4mg tab] 4 mg PO DIRECTED #21 tab Transmission Status: Sent to [facility] Referrals: Damien Fofana APRN [Primary Care Provider] - As needed Time of Disposition: 14:57 Medical Decision Making - Stew Inquiry Pt receiving controlled substance: No Stew was queried for this patient: No Vital Signs: 01/15/20 14:26 Temperature 98.0 F Temperature Source Oral Pulse Rate [Left Brachial] 91 H Respiratory Rate 20 Blood Pressure [Left Arm] 113/74 Blood Pressure Mean [Left Arm] 87 Blood Pressure Source [Left Arm] Automatic Cuff Blood Pressure Position [Left Arm] Sitting 02 Sat by Pulse Oximetry 98 Oxygen Delivery Method Room Air Orders (Tests/Meds): ED MEDICATIONS Discontinued Medications Generic Name Dose Route Start Last Admin Trade Name Jossie PRN Reason Stop Dose Admin Methylprednisolone Sodium Succinate 125 mg 01/15/20 14:30 01/15/20 14:39 Solu-Medrol 125mg/2ml Vial IM 01/15/20 14:31 125 mg ONCE ONE Administration [facility] HPI - General Stated complaint: rash Time Seen by Provider: 01/15/20 14:30 Mode of Arrival: Ambulatory Source of Information: Patient Limitations: No Limitations Description of Symptoms (Recalled from Triage Doc. by RN): PATIENT C/O RASH TO BLE, BUE, BACK AND BUTTOCK X 1 WEEK. UNKNOWN SOURCE. PATIENT STATES THE RASH STARTED AFTER SHE WENT CAMPING HEENT Symptoms (Recalled from RN notes): No Resp Symptoms (Recalled from RN notes): No Skin Symptoms (Recalled from RN notes): Yes MS Symptoms (Recalled from RN notes): No Functional Status (Recalled from RN notes): WNL - History of Present Illness Provider Complaint: Patient states that she thinks she has poison ana paula States that she recently went camping and when she got back she broke out with itchy rash on her buttock area, bilateral lower legs and arms States that she has tried over the counter benadryl, calamine lotion and hydrocortisone but hasn't helped much and rash has spread - Related Data Previous Rx's Medication Instructions Recorded methylPREDNISolone [Medrol 4mg 4 mg PO DIRECTED #21 tab 01/15/20 tab] Allergies Allergy/AdvReac Type Severity Reaction Status Date / Time cephalexin [CEPHALEXIN] Allergy Severe SWELLS Verified 07/28/18 16:24 THROAT Fish Containing Products Allergy Unknown I-HIVES Verified 07/28/18 16:24 [FISH CONTAINING PRODUCTS] orange juice [ORANGE JUICE] Allergy Unknown I-HIVES Verified 07/28/18 16:24 codeine [CODEINE] AdvReac Unknown MUSCLE Verified 07/28/18 16:24 SPASMS BANDAIDS Allergy Unknown RASH/SWELLI Uncoded 07/28/18 16:24 NG - Worker's Comp Is this a Worker's Comp case?: No [facility] History - Hepatitis A Screen Drug use history?: No High risk sexual behaviors?: No History of sexually transmitted infection?: No Currently employed?: No Childcare worker?: No Do you have indoor plumbing?: Yes Do you have electricity?: Yes Attestation statement:: This patient has been screened for Hepatitis A risk factors. I have reviewed the patient's past medical history: Yes Medical History: Reports:: Anxiety, Hepatitis Denies:: Cancer, Diabetes Mellitus Type 1, Diabetes Mellitus Type 2, MRSA, Seizures Other Medical History: Reports: Other. Denies: Blood Transfusion Reaction Comment: Seasonal Allergies. Anxiety. Ovarian Cysts NOS. Kidney Stones caused Sepsis Laterality Cases: Bi
[2020-01-15 14:56] VITALS: BP 113/74; PULSE 91; RESP 20; TEMP 36.7; O2SAT 98
== END 2020-01-15 14:58 | disposition home or self-care (01) ==
PROVIDERS: Emergency Provider Nurse Practitioner; PCP Nurse Practitioner Family
DX: L23.7 Allergic contact dermatitis due to plants, except food (principal); F41.9 Anxiety disorder, unspecified; F17.210 Nicotine dependence, cigarettes, uncomplicated; Z88.1 Allergy status to other antibiotic agents; Z88.5 Allergy status to narcotic agent; Z90.09 Acquired absence of other part of head and neck; Z90.79 Acquired absence of other genital organ(s)
CPT/HCPCS: 96372; 99201

== ENCOUNTER 2020-02-23 10:03 | Emergency (ER) | payer MEDICAID, SELFPAY ==
[2020-02-23 10:11] VITALS: BP 129/63; PULSE 61; RESP 18; TEMP 36.9; O2SAT 99; BMI 28.1
--- NOTE | 2020-02-23 10:18 | HMH.EDUTC ---
[facility] [place] Clinical Impression: Sinusitis Qualifiers: Sinusitis location: unspecified location Chronicity: acute Recurrence: non-recurrent Qualified Code(s): J01.90 - Acute sinusitis, unspecified Disposition: Home, Self-Care Condition on Discharge: Good Instructions: Sinusitis, DI for Sinusitis Additional Instructions: Drink plenty of fluids. Take tylenol or ibuprofen for pain or fever. Take the medications as directed. Follow up with your regular doctor. GO TO THE ER FOR ANY WORSENING SYMPTOMS Prescriptions: Brompheniramine/Pseudoephed/Dm [Bromfed Dm Cough Syrup] 5 ml PO Q6HP PRN #240 syrup PRN Reason: Cough Transmission Status: Received by [facility] methylPREDNISolone [Medrol] 4 mg PO DIRECTED 6 Days #21 tab.ds.pk Transmission Status: Received by [facility] Azithromycin [Z-Naveed 250mg Tab*] 250 mg PO UD DOSE PK #6 tab Transmission Status: Received by [facility] Referrals: Damien Fofana APRN [Primary Care Provider] - Time of Disposition: 10:25 Medical Decision Making - Medical Records Medical records reviewed: No: I reviewed the patient's medical records. - Stew Inquiry Pt receiving controlled substance: No Vital Signs: 02/23/20 10:11 Temperature 98.4 F Temperature Source Oral Pulse Rate [Radial] 61 Respiratory Rate 18 Blood Pressure [Right Arm] 129/63 Blood Pressure Mean [Right Arm] 85 Blood Pressure Source [Right Arm] Automatic Cuff Blood Pressure Position [Right Arm] Sitting 02 Sat by Pulse Oximetry 99 Oxygen Delivery Method Room Air [facility] [place] - General Stated complaint: ear pain stopped up Time Seen by Provider: 02/23/20 10:18 Mode of Arrival: Ambulatory Source of Information: Patient Limitations: No Limitations Description of Symptoms (Recalled from Triage Doc. by RN): right side of face and ear pain. Congested. States she thinks it is sinuses. HEENT Symptoms (Recalled from RN notes): Yes Resp Symptoms (Recalled from RN notes): No Skin Symptoms (Recalled from RN notes): No MS Symptoms (Recalled from RN notes): No Functional Status (Recalled from RN notes): wnl - History of Present Illness Provider Complaint: She c/o sinus congestion, right sided ear pain and sinus drainage for the past 3 days. She denies any known exposure to COVID-19. She denies fever or chills. She usually gets a sinus infection this time every year. - Related Data Previous Rx's Medication Instructions Recorded methylPREDNISolone [Medrol 4mg 4 mg PO DIRECTED #21 tab 01/15/20 tab] Azithromycin [Z-Naveed 250mg Tab*] 250 mg PO UD DOSE PK #6 tab 02/23/20 Brompheniramine/Pseudoephed/Dm 5 ml PO Q6HP PRN #240 syrup 02/23/20 [Bromfed Dm Cough Syrup] methylPREDNISolone [Medrol] 4 mg PO DIRECTED 6 Days #21 02/23/20 tab.ds.pk Allergies Allergy/AdvReac Type Severity Reaction Status Date / Time cephalexin [CEPHALEXIN] Allergy Severe SWELLS Verified 07/28/18 16:24 THROAT Fish Containing Products Allergy Unknown I-HIVES Verified 07/28/18 16:24 [FISH CONTAINING PRODUCTS] orange juice [ORANGE JUICE] Allergy Unknown I-HIVES Verified 07/28/18 16:24 codeine [CODEINE] AdvReac Unknown MUSCLE Verified 07/28/18 16:24 SPASMS BANDAIDS Allergy Unknown RASH/SWELLI Uncoded 07/28/18 16:24 NG - Worker's Comp Is this a Worker's Comp case?: No [facility] History - Hepatitis A Screen Drug use history?: No High risk sexual behaviors?: No History of sexually transmitted infection?: No Currently employed?: No Childcare worker?: No Do you have indoor plumbing?: Yes Do you have electricity?: Yes Attestation statement:: This patient has been screened for Hepatitis A risk factors. I have reviewed the patient's past medical history: Yes Medical History: Reports:: Anxiety, Hepatitis Denies:: Cancer, Diabetes Mellitus Type 1, Diabetes Mellitus Type 2, MRSA, Seizures Other Medical History: Reports: Other. Denies: Blood Transfusion Reaction Commen
[2020-02-23 10:33] VITALS: BP 129/63; PULSE 61; RESP 18; TEMP 36.9; O2SAT 99
== END 2020-02-23 10:34 | disposition home or self-care (01) ==
PROVIDERS: Emergency Provider Nurse Practitioner Family; PCP Nurse Practitioner Family
DX: J01.90 Acute sinusitis, unspecified (principal); F41.9 Anxiety disorder, unspecified; F17.210 Nicotine dependence, cigarettes, uncomplicated
CPT/HCPCS: 99201

== ENCOUNTER → 2020-03-15 19:13 | Outpatient (CLI) | payer MEDICAID, SELFPAY ==
[2020-03-15 19:40] LABS: Alanine Aminotransferase 98 U/L (12-78); Albumin Level 4.3 g/dl (3.5-5.0); Albumin/Globulin Ratio 1.5 (1.1-1.8); Alkaline Phosphatase 84 U/L (38-126); Anion Gap 11.3 mEq/L (5-15); Aspartate Amino Transferase 87 U/L (14-36); Bilirubin,Direct 0.2 mg/dl (0.0-0.4); Bilirubin,Indirect 0.3 mg/dL (0.0-0.9); Bilirubin,Total 0.5 mg/dl (0.2-1.3); Bilirubin,Unconjugated 0.3 mg/dL (0.0-1.1); Blood Urea Nitrogen 17 mg/dl (7-17); Calcium 9.6 mg/dl (8.4-10.2); Carbon Dioxide 25 mmol/L (22.0-30.0); Chloride 107 mmol/L (98-107); Estimated Glomerular Filt Rate 94 ml/min (>60); GFR (African American) 113 ML/MIN (>60); Globulin 2.8 g/dL (1.3-3.2); Glucose 97 mg/dl (74-100); Potassium 4.3 mmoL/L (3.5-5.1); Sodium 139 mmol/L (136-145); Total Protein,Serum 7.1 g/dl (6.3-8.2)
[2020-03-15 20:07] LABS: Thyroid Stimulating Hormone 0.84 uIU/mL (0.465-4.68)
[2020-03-20 15:45] LABS: Chol/HDL Ratio 3.1 (1-3.5); Cholesterol 191 mg/dl (140-200); HDL Cholesterol 61 mg/dl (40-60); Triglycerides 87 mg/dl (30-150); VLDL Cholesterol 17 mg/dL (0-40)
[2020-03-20 15:56] LABS: Direct LDL Cholesterol 113.94 mg/dL (100-129)
[2020-03-20 16:02] LABS: 25-OH Vitamin D, Total 37.4 ng/mL (30-100)
[2020-03-20 16:03] LABS: T4 (Thyroxine) 10.2 ug/dl (5.53-11.0)
== END ==
PROVIDERS: Visit Provider Nurse Practitioner Family
DX: R53.83 Other fatigue (principal); R10.31 Right lower quadrant pain; R19.7 Diarrhea, unspecified
CPT/HCPCS: 80053; 80061; 80076; 82306; 84436; 84443

== ENCOUNTER → 2020-03-16 14:04 | Outpatient (CLI) | payer MEDICAID, SELFPAY ==
[2020-03-16 14:15] LABS: Campylobacter Not Detected (NotDetected); Clostridium Difficile A/B, PCR Not Detected (NotDetected); Plesimonas Shigalloides, PCR Not Detected (NotDetected); Salmonella, PCR Not Detected (NotDetected); Vibrio, PCR Not Detected (NotDetected); Yersinia Entercolitica, PCR Not Detected (NotDetected)
[2020-03-16 14:16] LABS: Adenovirus F 40/41, stool Not Detected (NotDetected); Astrovirus Not Detected (NotDetected); Cryptosporidium Not Detected (NotDetected); Cyclospora Cayetanesis Not Detected (NotDetected); Entamoeba histolytica Not Detected (NotDetected); Enteroaggregative E coli Not Detected (NotDetected); Enteropathogenic E coli Not Detected (NotDetected); Enterotoxigenic E coli Not Detected (NotDetected); Giardia lamblia Not Detected (NotDetected); Norovirus Not Detected (NotDetected); Rotavirus A Not Detected (NotDetected); Sapovirus Not Detected (NotDetected); Shiga-like toxin E coli Not Detected (NotDetected); Shigella Enterovasive E coli Not Detected (NotDetected); Vibrio Cholerae Not Detected (NotDetected)
== END ==
PROVIDERS: PCP Nurse Practitioner Family; Visit Provider Nurse Practitioner Family
DX: R10.31 Right lower quadrant pain (principal); R19.7 Diarrhea, unspecified
CPT/HCPCS: 87507

== ENCOUNTER → 2020-03-22 13:55 | Outpatient (CLI) | payer MEDICAID, SELFPAY ==
[2020-03-22 14:20] LABS: Basophils # 0.1 K/mm3 (0-0.2); Basophils % 0.9 % (0.1-2.0); Eosinophils # 0.3 K/mm3 (0.0-0.4); Eosinophils % 2.4 % (0.1-12.0); Hematocrit 49.2 % (37.0-47.0); Hemoglobin 16.3 g/dL (12.2-16.2); Lymphocytes # 3.2 K/mm3 (0.7-4.5); Lymphocytes % 25.8 % (10-50); Mean Corpuscular HGB Conc 33.2 g/dL (31.8-35.4); Mean Corpuscular Hemoglobin 30.4 pg (27.0-31.2); Mean Corpuscular Volume 91.6 fl (81-99); Mean Platelet Volume 10.4 fl (7.4-10.4); Monocytes # 0.5 K/mm3 (0.1-1.0); Neutrophils # 8.3 K/mm3 (1.8-7.8); Neutrophils % 66.9 % (37.0-80.0); Platelet Count 374 K/mm3 (142-424); Red Blood Count 5.36 M/mm3 (4.20-5.40); Red Cell Distribution Width 13.9 % (11.5-17.5); White Blood Count 12.4 K/mm3 (4.8-10.8)
== END ==
PROVIDERS: Visit Provider Nurse Practitioner Family
DX: R53.83 Other fatigue (principal)
CPT/HCPCS: 85025

== ENCOUNTER 2020-04-27 16:02 | Emergency (ER) | payer MEDICAID, SELFPAY ==
[2020-04-27 16:24] VITALS: BP 108/77; PULSE 67; RESP 19; TEMP 36.9; O2SAT 100; BMI 27.8
--- NOTE | 2020-04-27 16:29 | HMH.EDUTC ---
[facility] [place] Disposition Clinical Impression: Bronchitis Sinusitis Qualifiers: Sinusitis location: other Chronicity: unspecified Qualified Code(s): J32.9 - Chronic sinusitis, unspecified Disposition: Home, Self-Care Condition on Discharge: Good Instructions: Sinusitis, Sinus Headache, DI for Sinusitis, Acute Bronchitis Additional Instructions: ? Start antibiotic today. Be sure to complete entire prescription even if feeling better ? Monitor temp. Tylenol every 4 hours as needed and / or ibuprofen every 6 hours as needed ( As long as your primary care physician has told you that it ok to take both. For fever/aches/pains ER if no less than 101 despite Tylenol or Motrin ? Humidifier/vaporizer or hot steamy shower ? Inhaler every 4-6 hours as needed like we discussed. If unsure how to use it, ask pharmacist to demonstrate how. Should help open airways and improve cough, wheezing, and shortness of breath ? Mucinex during the day for your cough and cough suppressant only at night. Be sure to drink lots of water. Insurance may not cover a prescriptions for mucinex. Might be cheaper to get 400mg tablets and take 2 tablet in the morning, mid-day and evening with lots of water. Start steroid today. Helps with inflammation therefore, cough and wheezing. Follow directions on the package. Reviewed side effects. Patient reports taking them before. Follow up IMMEDIATELY for new or worsening of symptoms OR no noticeable improvement over the next 48-72 hours. 911 immediately for any life threatening symptoms such as chest pain or difficulty breathing Prescriptions: Albuterol Sulfate [Proventil-HFA 90mcg/puff Inh] 1 - 2 puffs IH Q4HP PRN #1 inh PRN Reason: Shortness Of Breath Transmission Status: Pending to [facility] methylPREDNISolone [Medrol 4mg tab] 4 mg PO DIRECTED #21 tab Transmission Status: Pending to [facility] Azithromycin [Z-Naveed 250mg Tab] 250 mg PO DIRECTED #6 tab [facility] Referrals: James Suarez MD [Primary Care Provider] - As needed Forms: Work/School Release Time of Disposition: 16:36 Medical Decision Making - Stew Inquiry Pt receiving controlled substance: No Stew was queried for this patient: No Vital Signs: 04/27/20 16:24 Temperature 98.4 F Temperature Source Oral Pulse Rate [Left Brachial] 67 Respiratory Rate 19 Blood Pressure [Right Arm] 108/77 L Blood Pressure Mean [Right Arm] 87 Blood Pressure Source [Right Arm] Automatic Cuff Blood Pressure Position [Right Arm] Sitting 02 Sat by Pulse Oximetry 100 Orders (Tests/Meds): ORDERS Category Date Time Status Covid-19 Nasal PCR ([facility]) Routine Lab 04/27/20 16:29 Ordered [facility] [place] HPI - General Stated complaint: PAULA,Cough,SOB Time Seen by Provider: 04/27/20 16:29 Description of Symptoms (Recalled from Triage Doc. by RN): Pt states she is SOB and has had a cough since this morning HEENT Symptoms (Recalled from RN notes): No Resp Symptoms (Recalled from RN notes): Yes Skin Symptoms (Recalled from RN notes): No MS Symptoms (Recalled from RN notes): No Functional Status (Recalled from RN notes): wnl - History of Present Illness Provider Complaint: Patient states that she has been having cough, sinus congestion and earlier she was coughing so much felt like she couldnt catch her breath States that she hasnt had a fever that she was aware of and felt like she was having some sinus pressure behind her eyes. - Related Data Previous Rx's Medication Instructions Recorded Albuterol Sulfate [Proventil-HFA 1 - 2 puffs IH Q4HP PRN #1 inh 04/27/20 90mcg/puff Inh] Azithromycin [Z-Naveed 250mg Tab] 250 mg PO DIRECTED #6 tab 04/27/20 methylPREDNISolone [Medrol 4mg 4 mg PO DIRECTED #21 tab 04/27/20 tab] Allergies Allergy/AdvReac Type Severity Reaction Status Date / Time cephalexin [CEPHALEXIN] Allergy Severe SWELLS Verified 03/15/20 10:16 THROAT Fi
[2020-04-27 16:56] VITALS: BP 108/77; PULSE 67; RESP 19; TEMP 36.9; O2SAT 100
== END 2020-04-27 16:57 | disposition home or self-care (01) ==
PROVIDERS: Emergency Provider Nurse Practitioner; PCP Emergency Medicine
DX: Z20.828 Contact with and (suspected) exposure to other viral communicable diseases (principal); J20.9 Acute bronchitis, unspecified; J32.9 Chronic sinusitis, unspecified; F41.9 Anxiety disorder, unspecified; F17.210 Nicotine dependence, cigarettes, uncomplicated
CPT/HCPCS: 99201; U0003

== ENCOUNTER 2020-05-17 13:07 | Emergency (ER) | payer MEDICAID, SELFPAY ==
[2020-05-17 13:08] VITALS: BP 134/85; PULSE 71; RESP 15; TEMP 36.9; O2SAT 97; BMI 29.0
--- NOTE | 2020-05-17 13:23 | CT_ITS ---
PROCEDURE: CT ABDOMEN PELVIS W CON CLINICAL INDICATION: Mid to lower abdominal pain, right lower abdominal pain COMPARISON: CT CT ABDOMEN PELVIS WO CON from 11/27/2019 TECHNIQUE: IV Contrast: 75ML Isovue 370 Oral Contrast None Axial images obtained with sagittal and coronal reformats. All CT scans at the facility use one or more dose reduction, viz: automated exposure control, ma/kV adjustment per patient size (including targeted exams where dose is matched to indication, i.e. head), or iterative reconstruction technique. FINDINGS: LOWER THORAX: No acute finding ABDOMEN & PELVIS: Liver, gallbladder, spleen, adrenal glands, pancreas, and kidneys have an unremarkable appearance. No renal or ureteral calculi. No hydronephrosis. No evidence of appendicitis. There has been a prior hysterectomy. No intestinal obstruction or free air. There is a tiny umbilical hernia containing fat. There are few small peritoneal and retroperitoneal lymph nodes which are nonspecific. No acute bony findings. IMPRESSION: No acute finding Dictated by: Mateus Pedersen MD 05/17/2020 14:32 Mateus Pedersen MD in [place] 05/17/2020 14:32
[2020-05-17 13:56] LABS: Basophils # 0.1 K/mm3 (0-0.2); Basophils % 0.8 % (0.1-2.0); Eosinophils # 0.2 K/mm3 (0.0-0.4); Eosinophils % 2.3 % (0.1-12.0); Hematocrit 42.7 % (37.0-47.0); Hemoglobin 13.7 g/dL (12.2-16.2); Lymphocytes # 2.5 K/mm3 (0.7-4.5); Lymphocytes % 27.2 % (10-50); Mean Corpuscular HGB Conc 32.1 g/dL (31.8-35.4); Mean Corpuscular Hemoglobin 29.9 pg (27.0-31.2); Mean Corpuscular Volume 93.4 fl (81-99); Mean Platelet Volume 8.3 fl (7.4-10.4); Monocytes # 0.3 K/mm3 (0.1-1.0); Monocytes % 3.1 % (1.7-9.3); Neutrophils # 6.1 K/mm3 (1.8-7.8); Neutrophils % 66.6 % (37.0-80.0); Platelet Count 308 K/mm3 (142-424); Red Blood Count 4.57 M/mm3 (4.20-5.40); Red Cell Distribution Width 13.3 % (11.5-17.5); White Blood Count 9.1 K/mm3 (4.8-10.8)
[2020-05-17 13:58] LABS: Chloride 109 mmol/L (98-107); Sodium 140 mmol/L (136-145)
[2020-05-17 14:01] LABS: Alanine Aminotransferase 74 U/L (12-78); Albumin Level 4.5 g/dl (3.5-5.0); Albumin/Globulin Ratio 1.5 (1.1-1.8); Alkaline Phosphatase 68 U/L (38-126); Aspartate Amino Transferase 59 U/L (14-36); Bilirubin,Total 0.6 mg/dl (0.2-1.3); Blood Urea Nitrogen 14 mg/dl (7-17); Calcium 9.6 mg/dl (8.4-10.2); Carbon Dioxide 25 mmol/L (22.0-30.0); Creatinine Clearance Estimated 144 mL/min (50-200); Estimated Glomerular Filt Rate 94 ml/min (>60); GFR (African American) 113 ML/MIN (>60); Globulin 3.1 g/dL (1.3-3.2); Glucose 115 mg/dl (74-100); Total Protein,Serum 7.6 g/dl (6.3-8.2)
[2020-05-17 14:07] LABS: C-Reactive Protein 1.1 mg/L (0-4)
[2020-05-17 14:20] LABS: Erythrocyte Sedimentation Rate 13 mm/hr (0-20)
[2020-05-17 14:30] LABS: Microscopic, Urine URINE MICROSCOPIC (MICROSCOPIC)
[2020-05-17 14:33] LABS: Appearance,Urine CLEAR (Clear); Bilirubin,Urine Negative (Negative); Blood, Urine Negative (Negative); Color,Urine YELLOW (Yellow); Glucose,Urine (UA) Negative (Negative); Ketones,Urine Negative (Negative); Leukocyte Esterase,Urine Negative (Negative); Nitrate,Urine Negative (Negative); Protein,Urine Negative (Negative); Specific Gravity, Urine <= 1.005 (1.005-1.030); Urobilinogen,Urine 0.2 EU/dl (0.2)
[2020-05-17 14:34] LABS: Occult Blood,Stool Positive (Negative)
--- NOTE | 2020-05-17 15:05 | HMH.EDNVD ---
ED Disposition Clinical Impression: GI (gastrointestinal bleed) Qualifiers: GI bleed type/associated pathology: unspecified gastrointestinal hemorrhage type Qualified Code(s): K92.2 - Gastrointestinal hemorrhage, unspecified Abdominal pain Qualifiers: Abdominal location: generalized Qualified Code(s): R10.84 - Generalized abdominal pain Disposition: Home, Self-Care Condition on Discharge: Good Instructions: DI for Acute Abdominal Pain Additional Instructions: see pcp for follow up Prescriptions: Dicyclomine HCl [Bentyl 10mg capsule] 10 mg PO TID #30 cap Transmission Status: Pending to [facility] Referrals: Damien Fofana APRN [Primary Care Provider] - - Critical Care Critical Care Time: No Attestation: On 05/17/20, the high probability of a clinically significant, sudden or life threatening deterioration of the following system(s) required my full and direct attention, intervention and personal management. The time I documented below is in addition to time spent performing reported procedures but includes the following listed in this critical care notation. Medical Decision Making - Medical Records Medical records reviewed: Yes: I reviewed the patient's medical records. - Stew Inquiry Pt receiving controlled substance: No Vital Signs: 05/17/20 13:08 Temperature 98.5 F Temperature Source Oral Pulse Rate [Radial] 71 Respiratory Rate 15 Blood Pressure [Right Arm] 134/85 Blood Pressure Mean [Right Arm] 101 Blood Pressure Position [Right Arm] Sitting 02 Sat by Pulse Oximetry 97 Oxygen Delivery Method Room Air - Lab Data Lab results reviewed: Yes: I reviewed the patient's lab results. Lab Results 05/17/20 13:23: Urine Color Yellow, Urine Appearance Clear, Urine pH 6.0, Ur Specific [place] <= 1.005, Urine Protein Negative, Urine Glucose (UA) Negative, Urine Ketones Negative, Urine Blood Negative, Urine Nitrate Negative, Urine Bilirubin Negative, Urine Urobilinogen 0.2, Ur Leukocyte Esterase Negative, Urine RBC None, Urine WBC None, Ur Squamous Epith Cells None, Urine Bacteria None 05/17/20 13:45: WBC 9.1, RBC 4.57, Hgb 13.7, Hct 42.7, MCV 93.4, MCH 29.9, MCHC 32.1, RDW 13.3, Plt Count 308, MPV 8.3, Neut % (Auto) 66.6, Lymph % (Auto) 27.2, [place] % (Auto) 3.1, Eos % (Auto) 2.3, Baso % (Auto) 0.8, Neut # (Auto) 6.1, Lymph # (Auto) 2.5, [place] # (Auto) 0.3, Eos # (Auto) 0.2, Baso # (Auto) 0.1 05/17/20 13:45: Sodium 140, Potassium 4.0, Chloride 109 H, Carbon Dioxide 25, Anion Gap 10.0, BUN 14, Creatinine 0.70, Estimated Creat Clear 144, Estimated GFR 94, Est GFR ( Amer) 113, Glucose 115 H, Calcium 9.6, Total Bilirubin 0.6, AST 59 H, ALT 74, Alkaline Phosphatase 68, C-Reactive Protein 1.1, Total Protein 7.6, Albumin 4.5, Globulin 3.1, Albumin/Globulin Ratio 1.5 05/17/20 13:45: ESR 13 05/17/20 14:21: Stool Occult Blood Positive A Result diagrams: 05/17/20 13:45 05/17/20 13:45 Orders (Tests/Meds): ED MEDICATIONS Discontinued Medications Generic Name Dose Route Start Last Admin Trade Name Freq PRN Reason Stop Dose Admin Sodium Chloride 1,000 mls @ 999 mls/hr 05/17/20 14:00 05/17/20 14:04 Sod Chlor 0.9% 1000ml Bag IV 05/17/20 15:00 999 mls/hr .Q1H1M HUNG Administration Iopamidol 75 ml 05/17/20 13:54 05/17/20 13:55 Iopamidol-370 (76%);100ml Bottle IV 05/17/20 13:55 75 ml ONCE ONE Administration Ondansetron HCl 4 mg 05/17/20 14:13 05/17/20 14:17 Ondansetron 4mg/2ml Vial IV 05/17/20 14:14 4 mg ONCE ONE Administration Sodium Chloride 10 ml 05/17/20 13:54 05/17/20 13:55 Sodium Chloride 0.9% 10ml Syr (Rad Only) IV 05/17/20 13:55 10 ml ONCE ONE Administration - CT Data CT Scan: Abdomen, Pelvis Time Received: 15:[address] Reviewed: Yes: I have viewed the radiologist's interpretation Preliminary Findings: Abnormal - Reevaluation(s) Time: 15:26 Reevaluation #1: better Medical Decision Narrative: has pending appt with gi Sam
[2020-05-17 15:39] VITALS: BP 135/74; PULSE 78; RESP 16; TEMP 36.6; O2SAT 98
== END 2020-05-17 15:41 | disposition home or self-care (01) ==
PROVIDERS: Emergency Provider Emergency Medicine; PCP Nurse Practitioner Family
DX: K92.2 Gastrointestinal hemorrhage, unspecified (principal); R10.84 Generalized abdominal pain; F41.9 Anxiety disorder, unspecified; F17.210 Nicotine dependence, cigarettes, uncomplicated; Z87.442 Personal history of urinary calculi; Z90.79 Acquired absence of other genital organ(s); Z88.8 Allergy status to other drugs, medicaments and biological substances
CPT/HCPCS: 74177; 80053; 81001; 82272; 85025; 85651; 86140; 96365; 96375; 96376; 99283; G0328; J2405; Q9967

== ENCOUNTER → 2020-06-24 15:27 | Outpatient (POV) | payer MEDICAID, SELFPAY | PROVIDERS: Visit Provider Nurse Practitioner Family | DX: Z00.00 Encounter for general adult medical examination without abnormal findings (principal) ==

== ENCOUNTER 2020-07-29 11:25 | Day surgery (SDC) | payer MEDICAID, SELFPAY ==
[2020-07-23 13:52] VITALS: BMI 28.1
[2020-07-29 12:09] LABS: Urine Pregnancy, HCG Qual. Negative (Negative)
[2020-07-29 12:30] VITALS: BP 129/75; PULSE 80; RESP 18; TEMP 36.8; O2SAT 100
[2020-07-29 12:37] LABS: Coronavirus 19 IgG Antibody Negative (Negative); Coronavirus 19 IgM Antibody Negative (Negative)
[2020-07-29 13:42] VITALS: O2SAT 97
--- NOTE | 2020-07-29 13:55 | HMH.ANESCL ---
[facility] Anesthesia Checklist - Patient Identification Patient Identification: Arm Band, Verbal (Name & ) - Structural Data Admitted From: Home Planned Operative Procedure/s: colonoscopy Consent for Planned Operative Procedure(s) Verified: Yes Verified Documents: Surgical Consent, History and Physical - NPO Status Verified Time NPO: 00:00 - Chart Verification Results Verified: None - Additional verifications Patient : No Anesthesia Reactions: No Hx Blood Transfusions: No Blood Transfusion Reaction: No - Cardiovascular Assessment Heart Sounds: S1 & S2 Peripheral Edema: No - Airway Assessment C-Spine Mobility Assessed: Yes Dentition: Poor Dentition - Neurological Assessment Level of Consciousness: Awake, Alert, Appropriate, Follows Commands - Anesthesia Plan Anesthesia Risk discussed: Yes ASA Class: II Anesthesia Type: MAC [facility] History I have reviewed the patient's past medical history: Yes Medical History: Reports:: Anxiety, Hepatitis Denies:: Cancer, Diabetes Mellitus Type 1, Diabetes Mellitus Type 2, Internal Pacemaker, MRSA, Seizures *Have you ever received a pneumonia vaccine?: No *Have you received a flu vaccine this season?: No Other Medical History: Reports: Other. Denies: Blood Transfusion Reaction Anesthesia experience/problems:: nc Laterality Cases: Right: Carpal Tunnel Release, Bilateral: Tonsillectomy Other Surgeries: Yes: Colonoscopy, Dilation and Curettage, Hysterectomy-Partial, Ureter Stent. No: Pacemaker Amputation: No Fractures: Yes (right foot) - *Social History Last grade of school completed: High school graduate Smoking Status: Current every day smoker Tobacco Type: cigarettes # Packs/Day (cigarettes): 1 Alcohol Intake: current Alcohol Intake Frequency:: holidays/special occasions only Substance Use Type: heroin, opiates *Occupational Status:: employed Housing: house Household Members: family *Travel in the last 8 weeks: None - Psychiatric History Pschychiatric History:: Reports:: Anxiety Family Hx:: Cancer, Diabetes, Hypertension
[2020-07-29 14:05] VITALS: BP 110/60; PULSE 76; RESP 16; TEMP 36.2; O2SAT 100
--- NOTE | 2020-07-29 14:05 | HMH.PROC ---
[facility] Procedure Note Procedure Note:: Colonoscopy Procedure Report: Colonoscopy with cold biopsies and monopolar ablation/coagulation of internal hemorrhoids Endoscopist: Teo Pittman II, MD Referring physician: MARGOT Horner Date of Procedure: July 29, 2020 Equipment: Olympus 180 variable stiffness pediatric colonoscope Sedation: MAC sedation Indication: Mrs. Zimmerman is a 40-year-old female with bright red rectal bleeding that began a couple of months ago. She also has had diarrhea and lower abdominal pain and discomfort. Her PCR gastrointestinal stool panel was negative for pathogens. Her CAT scan showed some mild thickening of the transverse, descending and sigmoid colon. This was interpreted as possible nondistention of the colon versus mild colitis. She has had some intermittent black stools. In the past she has used Bentyl (dicyclomine) which resulted in some constipation. The patient does state that her paternal grandmother was diagnosed with colon cancer in her 80s. She has an aunt and 2 first cousins with Crohn's disease. This is her first colonoscopy and is performed for diagnostic purposes. Procedure: Prior to the procedure, a history and physical exam was performed, and patient's medications and allergies were reviewed. The risks, benefits and alternatives of the sedation and procedure were discussed with the patient. All questions were answered and informed consent was obtained. The patient was brought to the procedure room. Patient identification and proposed procedure were verified by the physician and the nurse. The patient was placed in a left lateral decubitus position and the scope was passed under direct vision. Throughout the procedure, the patient's blood pressure, pulse, and oxygen saturations were monitored continuously. The colonoscopy was accomplished without difficulty. The patient tolerated the procedure well. Findings: On digital rectal examination there was normal rectal tone. There were no external hemorrhoids. The colonoscope was introduced through the anal canal to the rectum and advanced to the cecum. The ileocecal valve and appendiceal orifice were identified. The scope was advanced a short distance into the ileum which appeared grossly normal. The scope was then withdrawn into the colon. The cecum, ascending, transverse, descending, sigmoid and rectum were grossly normal. There were no mucosal abnormalities identified. Random cold biopsies were taken from the colon to rule out microscopic colitis. Upon retroflexion within the rectum there were grade 1-2 internal hemorrhoids.3 columns of the hemorrhoids were coagulated/ablated using monopolar ablation to destruction. The preparation was excellent throughout with [employer] Preparation Score of 9. The cecal time was 10 minutes. Impression: 1. Normal colonoscopy with intubation of the terminal ileum 2. Grade 1-2 internal hemorrhoids status post monopolar ablation/coagulation Plan: I would encourage dietary measures, bulk fiber (FiberCon) and probiotic. I would also consider IBgard. We will discuss additional treatment options today and I will follow-up the biopsies.
[2020-07-29 14:15] VITALS: BP 99/66; PULSE 71; RESP 16; O2SAT 99
[2020-07-29 14:25] VITALS: BP 114/78; PULSE 69; RESP 16; O2SAT 100
[2020-07-29 14:35] VITALS: BP 124/80; PULSE 74; RESP 16; TEMP 36.2; O2SAT 100
== END 2020-07-29 14:36 | disposition home or self-care (01) ==
LOC: OUTP 11:26
PROVIDERS: PCP Nurse Practitioner Family; Visit Provider Internal Medicine Gastroenterology
PROC: 0DJD8ZZ Inspection of Lower Intestinal Tract, Via Natural or Artificial Opening Endoscopic (ICD-10-PCS; CPT 45378; principal; 2020-07-29 12:30)
DX: K64.0 First degree hemorrhoids (principal); K59.03 Drug induced constipation; T44.3X5A Adverse effect of other parasympatholytics [anticholinergics and antimuscarinics] and spasmolytics, initial encounter; K92.1 Melena; R19.7 Diarrhea, unspecified; F41.9 Anxiety disorder, unspecified; K75.9 Inflammatory liver disease, unspecified; Z72.0 Tobacco use; F11.90 Opioid use, unspecified, uncomplicated; Z80.9 Family history of malignant neoplasm, unspecified; Z83.3 Family history of diabetes mellitus; Z82.49 Family history of ischemic heart disease and other diseases of the circulatory system
CPT/HCPCS: 46930; 45380; 36415; 81025; 86328

== ENCOUNTER → 2020-09-09 10:06 | Outpatient (CLI) | payer MEDICAID, SELFPAY ==
[2020-09-09 11:28] LABS: Chloride 111 mmol/L (98-107); Potassium 4.2 mmoL/L (3.5-5.1); Sodium 142 mmol/L (136-145)
[2020-09-09 11:31] LABS: Alanine Aminotransferase 76 U/L (12-78); Albumin Level 4.6 g/dl (3.5-5.0); Albumin/Globulin Ratio 1.8 (1.1-1.8); Alkaline Phosphatase 62 U/L (38-126); Anion Gap 12.2 mEq/L (5-15); Aspartate Amino Transferase 67 U/L (14-36); Bilirubin,Total 0.6 mg/dl (0.2-1.3); Blood Urea Nitrogen 12 mg/dl (7-17); Calcium 9.5 mg/dl (8.4-10.2); Carbon Dioxide 23 mmol/L (22.0-30.0); Estimated Glomerular Filt Rate 112 ml/min (>60); GFR (African American) 135 ML/MIN (>60); Globulin 2.6 g/dL (1.3-3.2); Glucose 93 mg/dl (74-100); Total Protein,Serum 7.2 g/dl (6.3-8.2)
[2020-09-09 11:36] LABS: C-Reactive Protein 1.1 mg/L (0-4)
[2020-09-09 15:58] LABS: Basophils # 0.1 K/mm3 (0-0.2); Basophils % 1.2 % (0.1-2.0); Eosinophils # 0.3 K/mm3 (0.0-0.4); Eosinophils % 3.6 % (0.1-12.0); Hematocrit 42.8 % (37.0-47.0); Hemoglobin 13.7 g/dL (12.2-16.2); Lymphocytes # 2.8 K/mm3 (0.7-4.5); Lymphocytes % 32.3 % (10-50); Mean Corpuscular HGB Conc 31.9 g/dL (31.8-35.4); Mean Corpuscular Hemoglobin 29.3 pg (27.0-31.2); Mean Platelet Volume 10.4 fl (7.4-10.4); Monocytes # 0.3 K/mm3 (0.1-1.0); Monocytes % 3.5 % (1.7-9.3); Neutrophils # 5.2 K/mm3 (1.8-7.8); Neutrophils % 59.3 % (37.0-80.0); Platelet Count 328 K/mm3 (142-424); Red Blood Count 4.65 M/mm3 (4.20-5.40); Red Cell Distribution Width 13.6 % (11.5-17.5); White Blood Count 8.7 K/mm3 (4.8-10.8)
[2020-09-09 18:03] LABS: Erythrocyte Sedimentation Rate 7 mm/hr (0-20)
[2020-09-10 22:22] LABS: ALT (SGPT) P5P 76 IU/L (0-40); Alpha 2-Macroglobulins, Qn 226 mg/dL (110-276); Apolipoprotein A-1 159 mg/dL (116-209); Bilirubin, Total 0.5 mg/dL (0.0-1.2); Fibrosis Score 0.21 (0.00-0.21); GGT 74 IU/L (0-60); Haptoglobin 114 mg/dL (33-278); Necroinflammat Activity Grade A1-A2 (.); Necroinflammat Activity Score 0.42 (0.00-0.17)
[2020-09-11 22:25] LABS: Hep B Core Ab, Total Negative (Negative); Saccharomyces cerevisiae, IgA <20.0 Units (0.0-24.9); Saccharomyces cerevisiae, IgG <20.0 Units (0.0-24.9)
[2020-09-19 17:37] LABS: Hep A Ab, IgM NEGATIVE; Hepatitis B Core Antibody IgM NEGATIVE; Hepatitis B Surface Antigen NEGATIVE
[2020-09-19 17:39] LABS: Hep B Surface Ab, Qual NON REACTIVE
[2020-09-19 17:40] LABS: Hepatitis C Antibody >11
== END ==
PROVIDERS: Visit Provider Nurse Practitioner Family
DX: R10.84 Generalized abdominal pain (principal); R76.8 Other specified abnormal immunological findings in serum; R19.4 Change in bowel habit; K59.00 Constipation, unspecified; R19.7 Diarrhea, unspecified
CPT/HCPCS: 36415; 80053; 80074; 81596; 85025; 85651; 86140; 86256; 86671; 86704; 86706; 87522

== ENCOUNTER → 2020-09-17 07:55 | Outpatient (CLI) | payer MEDICAID, SELFPAY ==
--- NOTE | 2020-09-17 07:57 | US_ITS ---
PROCEDURE: US ABDOMEN LIMITED CLINICAL INDICATION: CHANGE IN BOWEL HAIBITS,CONSTIPATION,DIARRHEA,ABD PAIN COMPARISON: No exams were available for comparison FINDINGS: PANCREAS: Unremarkable. No obvious mass or abnormal fluid collection. No ductal dilatation LIVER: No focal liver lesions demonstrated. Homogeneous echogenicity. No intrahepatic biliary ductal dilatation evident. There is appropriate direction of blood flow within a non dilated portal vein RIGHT KIDNEY: Unremarkable. Normal size and echogenicity. No hydronephrosis the right kidney measures 9.2 x 3.8 by 6.1 cm appears sonographically normal. GALLBLADDER: No gallstones, gallbladder wall thickening, pericholecystic fluid, or biliary dilatation. There may be a minimal amount biliary sludge, the common bile duct is normal in caliber. IMPRESSION: Possible small amount of biliary sludge otherwise unremarkable study Dictated by: Dr. Declan Benavides MD 09/17/2020 12:14 Dr. Declan Benavides MD in [place] 09/17/2020 12:14
== END ==
PROVIDERS: PCP Nurse Practitioner Family; Visit Provider Nurse Practitioner Family
DX: R10.84 Generalized abdominal pain (principal); R76.8 Other specified abnormal immunological findings in serum; R19.4 Change in bowel habit; R19.7 Diarrhea, unspecified; K59.00 Constipation, unspecified
CPT/HCPCS: 76705

== ENCOUNTER → 2020-09-23 13:28 | Outpatient (POV) | payer MEDICAID, SELFPAY | PROVIDERS: Visit Provider Nurse Practitioner Family | DX: Z00.00 Encounter for general adult medical examination without abnormal findings (principal) ==

== ENCOUNTER → 2020-11-27 12:54 | Outpatient (CLI) | payer MEDICAID, SELFPAY ==
[2020-11-27 13:45] LABS: Basophils # 0.1 K/mm3 (0-0.2); Basophils % 0.9 % (0.1-2.0); Eosinophils # 0.3 K/mm3 (0.0-0.4); Eosinophils % 2.6 % (0.1-12.0); Hematocrit 41.1 % (37.0-47.0); Hemoglobin 13.5 g/dL (12.2-16.2); Lymphocytes # 3.3 K/mm3 (0.7-4.5); Lymphocytes % 31.6 % (10-50); Mean Corpuscular HGB Conc 32.8 g/dL (31.8-35.4); Mean Corpuscular Hemoglobin 29.6 pg (27.0-31.2); Mean Corpuscular Volume 90.4 fl (81-99); Mean Platelet Volume 10.4 fl (7.4-10.4); Monocytes # 0.4 K/mm3 (0.1-1.0); Neutrophils # 6.4 K/mm3 (1.8-7.8); Neutrophils % 60.8 % (37.0-80.0); Platelet Count 310 K/mm3 (142-424); Red Blood Count 4.54 M/mm3 (4.20-5.40); Red Cell Distribution Width 13.1 % (11.5-17.5); White Blood Count 10.5 K/mm3 (4.8-10.8)
[2020-11-27 14:12] LABS: Alanine Aminotransferase 73 U/L (12-78); Albumin Level 4.2 g/dl (3.5-5.0); Albumin/Globulin Ratio 1.6 (1.1-1.8); Alkaline Phosphatase 67 U/L (38-126); Anion Gap 12.3 mEq/L (5-15); Aspartate Amino Transferase 66 U/L (14-36); Bilirubin,Total 0.5 mg/dl (0.2-1.3); Blood Urea Nitrogen 15 mg/dl (7-17); Calcium 8.9 mg/dl (8.4-10.2); Carbon Dioxide 24 mmol/L (22.0-30.0); Chloride 108 mmol/L (98-107); Chol/HDL Ratio 3.8 (1-3.5); Cholesterol 162 mg/dl (140-200); Estimated Glomerular Filt Rate 112 ml/min (>60); GFR (African American) 135 ML/MIN (>60); Globulin 2.7 g/dL (1.3-3.2); Glucose 93 mg/dl (74-100); HDL Cholesterol 43 mg/dl (40-60); Potassium 4.3 mmoL/L (3.5-5.1); Sodium 140 mmol/L (136-145); Total Protein,Serum 6.9 g/dl (6.3-8.2); Triglycerides 155 mg/dl (30-150); VLDL Cholesterol 31 mg/dL (0-40)
[2020-11-27 14:23] LABS: Direct LDL Cholesterol 84.78 mg/dL (100-129)
[2020-11-27 14:28] LABS: T4 (Thyroxine) 10.7 ug/dl (5.53-11.0)
[2020-11-27 14:42] LABS: Thyroid Stimulating Hormone 0.66 uIU/mL (0.465-4.68)
[2020-11-28 10:26] LABS: Hep A Ab, IgM Negative (Negative); Hepatitis B Core Antibody IgM Negative (Negative); Hepatitis B Surface Antigen Negative (Negative); Hepatitis C Antibody >11.0 s/co ratio (0.0-0.9)
== END ==
PROVIDERS: Visit Provider Nurse Practitioner Family
DX: B19.20 Unspecified viral hepatitis C without hepatic coma (principal)
CPT/HCPCS: 80053; 80061; 80074; 84436; 84443; 85025

== ENCOUNTER 2020-12-03 08:35 | Emergency (ER) | payer MEDICAID, SELFPAY ==
[2020-12-03 08:40] VITALS: BP 113/74; PULSE 77; RESP 16; TEMP 36.5; O2SAT 100; BMI 29.0
[2020-12-03 08:45] VITALS: BP 113/74; PULSE 71
[2020-12-03 08:53] VITALS: BP 113/74; PULSE 70; RESP 14; O2SAT 100
[2020-12-03 08:59] LABS: Microscopic, Urine URINE MICROSCOPIC (MICROSCOPIC)
--- NOTE | 2020-12-03 09:00 | HMH.EDGENADL ---
ED Disposition Clinical Impression: Epigastric pain, Shakiness, Enteritis Disposition: Home, Self-Care Condition on Discharge: Good Instructions: DI for Acute Abdominal Pain Additional Instructions: Zofran as needed for nausea. Tylenol for pain. Additional instructions for ABDOMINAL PAIN: See your physician as soon as possible for further evaluation. Return immediately if worsening abdominal pain, vomiting, shortness of breath, fever, vomiting of blood or abdominal distention. Prescriptions: Ondansetron [Zofran 4mg ODT] 4 mg PO TIDP PRN #10 tab.rapdis PRN Reason: Nausea And Vomiting Transmission Status: Pending to [id number] Referrals: Damien Fofana APRN [Primary Care Provider] - - Critical Care Critical Care Time: No Attestation: On 12/03/20, the high probability of a clinically significant, sudden or life threatening deterioration of the following system(s) required my full and direct attention, intervention and personal management. The time I documented below is in addition to time spent performing reported procedures but includes the following listed in this critical care notation. Medical Decision Making - Medical Records Medical records reviewed: Yes: I reviewed the patient's medical records. MR Comment: Reviewed colonoscopy report from Dr. Pittman. Reviewed most recent abdominal ultrasound and most recent abdominal and pelvic CT. See below. - Stew Inquiry Pt receiving controlled substance: No Vital Signs: 12/03/20 08:40 12/03/20 08:45 12/03/20 08:53 Temperature 97.7 F Temperature Source Oral Pulse Rate 71 70 Pulse Rate [Right Radial] 77 Respiratory Rate 16 14 Blood Pressure 113/74 113/74 Blood Pressure [Right Arm] 113/74 Blood Pressure Mean 82 Blood Pressure Mean [Right Arm] 87 Blood Pressure Source Manual Cuff/ Auscultation Blood Pressure Source [Right Arm] Automatic Cuff Blood Pressure Position [Right Arm] Sitting 02 Sat by Pulse Oximetry 100 100 Oxygen Delivery Method Room Air Room Air - Lab Data Lab Results 12/03/20 08:53: Urine Color Yellow, Urine Appearance Clear, Urine pH 5.5, Ur Specific [place] >= 1.030, Urine Protein Negative, Urine Glucose (UA) Negative, Urine Ketones Negative, Urine Blood Trace-i, Urine Nitrate Negative, Urine Bilirubin Negative, Urine Urobilinogen 1.0, Ur Leukocyte Esterase Negative, Urine RBC Occasional, Urine WBC 3-5, Ur Squamous Epith Cells Occasional, Urine Bacteria None 12/03/20 09:24: WBC 10.8, RBC 4.77, Hgb 13.7, Hct 42.6, MCV 89.2, MCH 28.8, MCHC 32.3, RDW 12.7, Plt Count 328, MPV 7.6, Neut % (Auto) 68.7, Lymph % (Auto) 24.9, [place] % (Auto) 2.7, Eos % (Auto) 2.8, Baso % (Auto) 0.9, Neut # (Auto) 7.4, Lymph # (Auto) 2.7, [place] # (Auto) 0.3, Eos # (Auto) 0.3, Baso # (Auto) 0.1 12/03/20 09:24: Sodium 140, Potassium 4.1, Chloride 106, Carbon Dioxide 26, Anion Gap 12.1, BUN 13, Creatinine 0.60, Estimated Creat Clear 168, Estimated GFR 112, Est GFR ( Amer) 135, Glucose 101 H, Calcium 9.2, Total Bilirubin 0.6, AST 69 H, ALT 83 H, Alkaline Phosphatase 80, Total Protein 7.5, Albumin 4.6, Globulin 2.9, Albumin/Globulin Ratio 1.6, Lipase 87 Result diagrams: 12/03/20 09:24 12/03/20 09:24 Orders (Tests/Meds): ED MEDICATIONS Discontinued Medications Generic Name Dose Route Start Last Admin Trade Name Jossie PRN Reason Stop Dose Admin Iopamidol 75 ml 12/03/20 09:50 12/03/20 09:51 Iopamidol-370 (76%);100ml Bottle IV 12/03/20 09:51 75 ml ONCE ONE Administration Ketorolac Tromethamine 30 mg 12/03/20 10:35 Ketorolac 30mg/Ml Vial IV 12/03/20 10:36 ONCE ONE Ondansetron HCl 4 mg 12/03/20 10:34 Ondansetron 4mg/2ml Vial IV 12/03/20 10:35 ONCE ONE Sodium Chloride 10 ml 12/03/20 09:50 12/03/20 09:51 Sodium Chloride 0.9% 10ml Syr (Rad Only) IV 12/03/20 09:51 10 ml ONCE ONE Administration PROCEDURE: US ABDOMEN LIMITED CLINICAL INDICATION: CHANGE
[2020-12-03 09:06] LABS: Appearance,Urine CLEAR (Clear); Bilirubin,Urine Negative (Negative); Blood, Urine TRACE-I (Negative); Color,Urine YELLOW (Yellow); Glucose,Urine (UA) Negative (Negative); Ketones,Urine Negative (Negative); Leukocyte Esterase,Urine Negative (Negative); Nitrate,Urine Negative (Negative); PH,Urine 5.5 (5.0-8.5); Protein,Urine Negative (Negative); Specific Gravity, Urine >= 1.030 (1.005-1.030)
--- NOTE | 2020-12-03 09:09 | CT_ITS ---
PROCEDURE: CT ABDOMEN PELVIS W CON CLINICAL INDICATION: abdominal pain and vomiting Left upper quadrant pain and vomiting COMPARISON: CT CT ABDOMEN PELVIS W CON from 05/17/2020 TECHNIQUE: IV Contrast: 75ML Isovue 370 Oral Contrast None Axial images obtained with sagittal and coronal reformats. All CT scans at the facility use one or more dose reduction, viz: automated exposure control, ma/kV adjustment per patient size (including targeted exams where dose is matched to indication, i.e. head), or iterative reconstruction technique. FINDINGS: LOWER THORAX: No acute finding ABDOMEN & PELVIS: The liver, spleen, adrenal glands, gallbladder, pancreas, and kidneys have an unremarkable appearance. No renal calculi are evident. There are numerous pelvic calcifications. A cluster of calcifications of lie along the distal right ureter. These are not significantly changed and are likely due to phleboliths. There is mild thickening of the urinary bladder and may be due to incomplete distension. There are scattered small retroperitoneal lymph nodes not significantly changed. No intestinal obstruction or free air is evident. Unremarkable appearing appendix. There are few scattered small and large bowel air-fluid levels without distension. There has been a prior hysterectomy. No pelvic mass or abnormal fluid collection apparent. No acute bony findings. IMPRESSION: Scattered air-fluid levels within nondistended small and large bowel possibly due to intra colitis. Otherwise negative Dictated by: Mateus Pedersen MD 12/03/2020 10:15 Mateus Pedersen MD in [place] 12/03/2020 10:15
[2020-12-03 09:15] LABS: RBC,Urine Occasional #/hpf (0-3); Squamous Epithelial Cell,Urine Occasional #/hpf (0-5)
[2020-12-03 09:31] LABS: Basophils # 0.1 K/mm3 (0-0.2); Basophils % 0.9 % (0.1-2.0); Eosinophils # 0.3 K/mm3 (0.0-0.4); Eosinophils % 2.8 % (0.1-12.0); Hematocrit 42.6 % (37.0-47.0); Hemoglobin 13.7 g/dL (12.2-16.2); Lymphocytes # 2.7 K/mm3 (0.7-4.5); Lymphocytes % 24.9 % (10-50); Mean Corpuscular HGB Conc 32.3 g/dL (31.8-35.4); Mean Corpuscular Hemoglobin 28.8 pg (27.0-31.2); Mean Corpuscular Volume 89.2 fl (81-99); Mean Platelet Volume 7.6 fl (7.4-10.4); Monocytes # 0.3 K/mm3 (0.1-1.0); Monocytes % 2.7 % (1.7-9.3); Neutrophils # 7.4 K/mm3 (1.8-7.8); Neutrophils % 68.7 % (37.0-80.0); Platelet Count 328 K/mm3 (142-424); Red Blood Count 4.77 M/mm3 (4.20-5.40); Red Cell Distribution Width 12.7 % (11.5-17.5); White Blood Count 10.8 K/mm3 (4.8-10.8)
--- NOTE | 2020-12-03 09:32 | ECG_ITS ---
APPROVED REPORT Exam: Resting ECG HR:67 bpm ECG Measurements Heart Rate 67 AXES VA 158 P 74 QRSd 80 QRS 84 QT 388 T 63 QTc 409 Conclusion Normal sinus rhythm Normal ECG Electronically signed by : Leo Emerson, 12/03/2020 17:43:14
[2020-12-03 09:40] LABS: Chloride 106 mmol/L (98-107); Potassium 4.1 mmoL/L (3.5-5.1); Sodium 140 mmol/L (136-145)
[2020-12-03 09:42] LABS: Blood Urea Nitrogen 13 mg/dl (7-17); Creatinine Clearance Estimated 168 mL/min (50-200); Estimated Glomerular Filt Rate 112 ml/min (>60); GFR (African American) 135 ML/MIN (>60)
[2020-12-03 09:43] LABS: Alanine Aminotransferase 83 U/L (12-78); Albumin Level 4.6 g/dl (3.5-5.0); Albumin/Globulin Ratio 1.6 (1.1-1.8); Alkaline Phosphatase 80 U/L (38-126); Anion Gap 12.1 mEq/L (5-15); Aspartate Amino Transferase 69 U/L (14-36); Bilirubin,Total 0.6 mg/dl (0.2-1.3); Calcium 9.2 mg/dl (8.4-10.2); Carbon Dioxide 26 mmol/L (22.0-30.0); Globulin 2.9 g/dL (1.3-3.2); Glucose 101 mg/dl (74-100); Lipase 87 U/L (23-300); Total Protein,Serum 7.5 g/dl (6.3-8.2)
[2020-12-03 10:30] VITALS: BP 144/84; PULSE 67; RESP 18; TEMP 36.9; O2SAT 98
== END 2020-12-03 11:05 | disposition home or self-care (01) ==
PROVIDERS: Emergency Provider Emergency Medicine; PCP Nurse Practitioner Family
DX: K52.9 Noninfective gastroenteritis and colitis, unspecified (principal); F41.9 Anxiety disorder, unspecified; F17.210 Nicotine dependence, cigarettes, uncomplicated
CPT/HCPCS: 74177; 80053; 81001; 83690; 85025; 93005; 96374; 99283; J2405; Q9967

== ENCOUNTER → 2020-12-19 16:59 | Outpatient (CLI) | payer MEDICAID, SELFPAY ==
[2020-12-19 17:16] LABS: Basophils # 0.1 K/mm3 (0-0.2); Eosinophils # 0.3 K/mm3 (0.0-0.4); Eosinophils % 3.1 % (0.1-12.0); Hematocrit 38.3 % (37.0-47.0); Hemoglobin 12.7 g/dL (12.2-16.2); Lymphocytes # 4.5 K/mm3 (0.7-4.5); Lymphocytes % 45.3 % (10-50); Mean Corpuscular Hemoglobin 29.3 pg (27.0-31.2); Mean Corpuscular Volume 88.7 fl (81-99); Mean Platelet Volume 7.6 fl (7.4-10.4); Monocytes # 0.3 K/mm3 (0.1-1.0); Neutrophils # 4.7 K/mm3 (1.8-7.8); Neutrophils % 47.6 % (37.0-80.0); Platelet Count 329 K/mm3 (142-424); Red Blood Count 4.32 M/mm3 (4.20-5.40); Red Cell Distribution Width 13.6 % (11.5-17.5); White Blood Count 9.9 K/mm3 (4.8-10.8)
[2020-12-19 17:26] LABS: Prothrombin Time 10.2 seconds (10.1-12.5)
[2020-12-19 17:39] LABS: INR 0.85 (0.9-1.1)
[2020-12-19 19:49] LABS: Chloride 106 mmol/L (98-107); Potassium 4.7 mmoL/L (3.5-5.1); Sodium 139 mmol/L (136-145)
[2020-12-19 19:52] LABS: Alanine Aminotransferase 76 U/L (12-78); Albumin Level 4.4 g/dl (3.5-5.0); Albumin/Globulin Ratio 1.8 (1.1-1.8); Alkaline Phosphatase 74 U/L (38-126); Anion Gap 11.7 mEq/L (5-15); Aspartate Amino Transferase 54 U/L (14-36); Bilirubin,Total 0.2 mg/dl (0.2-1.3); Blood Urea Nitrogen 12 mg/dl (7-17); Carbon Dioxide 26 mmol/L (22.0-30.0); Estimated Glomerular Filt Rate 94 ml/min (>60); GFR (African American) 113 ML/MIN (>60); Globulin 2.4 g/dL (1.3-3.2); Total Protein,Serum 6.8 g/dl (6.3-8.2)
[2020-12-19 19:53] LABS: Calcium 9.3 mg/dl (8.4-10.2); Glucose 95 mg/dl (74-100)
[2020-12-21 08:16] LABS: HIV Screen 4th Generation wRfx Non Reactive (Non Reactive)
[2020-12-21 09:48] LABS: Hep A Ab, IgM Negative (Negative); Hep A Ab, Total Positive (Negative); Hep B Core Ab, Total Negative (Negative); Hep B Surface Ab, Qual Non Reactive (.); Hepatitis B Surface Antigen Negative (Negative); Hepatitis C Antibody >11.0 s/co ratio (0.0-0.9)
[2020-12-24 04:47] LABS: ALT (SGPT) P5P 71 IU/L (0-40); Alpha 2-Macroglobulins, Qn 203 mg/dL (110-276); Apolipoprotein A-1 145 mg/dL (116-209); Bilirubin, Total 0.1 mg/dL (0.0-1.2); Fibrosis Score 0.08 (0.00-0.21); GGT 84 IU/L (0-60); Haptoglobin 114 mg/dL (33-278); Necroinflammat Activity Grade A1-Minimal activity (.); Necroinflammat Activity Score 0.34 (0.00-0.17)
[2020-12-25 15:33] LABS: HCV Genotype Charge YES; Hepatitis C Genotype 3 (.)
== END ==
PROVIDERS: Visit Provider Nurse Practitioner Family
DX: B19.20 Unspecified viral hepatitis C without hepatic coma (principal)
CPT/HCPCS: 36415; 80053; 81596; 85025; 85610; 86703; 86704; 86706; 86708; 87340; 87380; 87522; 87902; G0432

== ENCOUNTER → 2021-03-05 10:47 | Outpatient (CLI) | payer MEDICAID, SELFPAY ==
[2021-03-05 12:01] LABS: Chloride 107 mmol/L (98-107); Potassium 4.3 mmoL/L (3.5-5.1); Sodium 141 mmol/L (136-145)
[2021-03-05 12:03] LABS: Blood Urea Nitrogen 12 mg/dl (7-17); Estimated Glomerular Filt Rate 111 ml/min (>60); GFR (African American) 135 ML/MIN (>60)
[2021-03-05 12:04] LABS: Alanine Aminotransferase 19 U/L (12-78); Albumin Level 4.4 g/dl (3.5-5.0); Albumin/Globulin Ratio 1.6 (1.1-1.8); Alkaline Phosphatase 58 U/L (38-126); Anion Gap 11.3 mEq/L (5-15); Aspartate Amino Transferase 25 U/L (14-36); Bilirubin,Indirect 0.2 mg/dL (0.0-0.9); Bilirubin,Total 0.2 mg/dl (0.2-1.3); Bilirubin,Unconjugated 0.2 mg/dL (0.0-1.1); Calcium 9.6 mg/dl (8.4-10.2); Carbon Dioxide 27 mmol/L (22.0-30.0); Globulin 2.8 g/dL (1.3-3.2); Glucose 81 mg/dl (74-100); Total Protein,Serum 7.2 g/dl (6.3-8.2)
[2021-03-06 06:11] LABS: Hepatitis C Antibody >11.0 s/co ratio (0.0-0.9)
== END ==
PROVIDERS: Visit Provider Nurse Practitioner Family
DX: B19.20 Unspecified viral hepatitis C without hepatic coma (principal)
CPT/HCPCS: 36415; 80053; 80076; 87380; 87522

== ENCOUNTER → 2021-05-13 14:28 | Outpatient (CLI) | payer MEDICAID, SELFPAY ==
[2021-05-13 15:58] LABS: Chloride 107 mmol/L (98-107); Potassium 3.9 mmoL/L (3.5-5.1); Sodium 141 mmol/L (136-145)
[2021-05-13 16:01] LABS: Alanine Aminotransferase 16 U/L (12-78); Albumin Level 4.7 g/dl (3.5-5.0); Albumin/Globulin Ratio 1.8 (1.1-1.8); Alkaline Phosphatase 56 U/L (38-126); Anion Gap 15.9 mEq/L (5-15); Aspartate Amino Transferase 25 U/L (14-36); Bilirubin,Total 0.2 mg/dl (0.2-1.3); Blood Urea Nitrogen 14 mg/dl (7-17); Calcium 9.3 mg/dl (8.4-10.2); Carbon Dioxide 22 mmol/L (22.0-30.0); Estimated Glomerular Filt Rate 93 ml/min (>60); GFR (African American) 113 ML/MIN (>60); Globulin 2.6 g/dL (1.3-3.2); Glucose 148 mg/dl (74-100); Total Protein,Serum 7.3 g/dl (6.3-8.2)
== END ==
PROVIDERS: Visit Provider Nurse Practitioner Family
DX: B19.20 Unspecified viral hepatitis C without hepatic coma (principal)
CPT/HCPCS: 36415; 80053; 87522

== ENCOUNTER → 2021-06-10 11:47 | Outpatient (CLI) | payer MEDICAID, SELFPAY ==
--- NOTE | 2021-06-10 11:52 | XR_ITS ---
FINAL REPORT CLINICAL HISTORY: R Thumb pain FINDINGS: RIGHT HAND Three views demonstrate no acute fracture or dislocation. The visualized joint spaces are normally aligned. The soft tissues are unremarkable. IMPRESSION: No acute bony abnormality. Reviewed, Interpreted and Dictated by Guillermo Membreno III, MD Transcribed by Marge Abdalla Authenticated by Guillermo Membreno III, MD on 06/10/2021 01:20:01 PM [facility][1]
== END ==
PROVIDERS: PCP Nurse Practitioner Family; Visit Provider Nurse Practitioner Family
DX: M25.541 Pain in joints of right hand (principal)
CPT/HCPCS: 73130

== ENCOUNTER 2021-06-28 08:48 | Emergency (ER) | payer MEDICAID, SELFPAY ==
[2021-06-28 08:49] VITALS: BP 109/74; PULSE 115; RESP 20; TEMP 37.1; O2SAT 98; BMI 28.1
--- NOTE | 2021-06-28 09:05 | XR_ITS ---
PROCEDURE INFORMATION: Exam: XR Chest Exam date and time: 06/28/2021 9:05 AM Age: 41 years old Clinical indication: Cough and fever and shortness of breath; Patient HX: SOA, cough, fever, body aches TECHNIQUE: Imaging protocol: XR of the chest. Views: 1 view. COMPARISON: CR CXR CHEST(2 VIEWS-NOT PORTABLE) 04/17/2017 1:01 PM FINDINGS: Lungs: There are patchy airspace opacities in left lower lobe. No consolidation. Pleural spaces: Unremarkable. No pleural effusion. No pneumothorax. Heart/Mediastinum: Unremarkable. No cardiomegaly. Bones/joints: Unremarkable. IMPRESSION: Patchy airspace opacity left lower lobe. Clinical correlation for pneumonia is recommended.
--- NOTE | 2021-06-28 09:07 | HMH.EDGENADL ---
ED Disposition Clinical Impression: COVID-19 Disposition: Home, Self-Care Condition on Discharge: Good Referrals: Damien Fofana APRN [Primary Care Provider] - - Critical Care Critical Care Time: No Attestation: On , the high probability of a clinically significant, sudden or life threatening deterioration of the following system(s) required my full and direct attention, intervention and personal management. The time I documented below is in addition to time spent performing reported procedures but includes the following listed in this critical care notation. Medical Decision Making - Medical Records Medical records reviewed: Yes: I reviewed the patient's medical records. - Stew Inquiry Pt receiving controlled substance: No Stew was queried for this patient: No Vital Signs: 06/28/21 08:49 Temperature 98.8 F Temperature Source Oral Pulse Rate [Right Radial] 115 H Respiratory Rate 20 Blood Pressure [Right Arm] 109/74 L Blood Pressure Mean [Right Arm] 85 Blood Pressure Source [Right Arm] Automatic Cuff Blood Pressure Position [Right Arm] Sitting 02 Sat by Pulse Oximetry 98 Oxygen Delivery Method Room Air - Lab Data Lab results reviewed: Yes: I reviewed the patient's lab results. Orders (Tests/Meds): ED MEDICATIONS Generic Name Dose Route Start Last Admin Trade Name Freq PRN Reason Stop Dose Admin Lactated Ringer's 1,000 mls @ 999 mls/hr 06/28/21 09:15 06/28/21 09:25 Lactated Ringer's 1000 Ml Bag IV 06/28/21 10:15 999 mls/hr .Q1H1M HUNG Administration Discontinued Medications Generic Name Dose Route Start Last Admin Trade Name Freq PRN Reason Stop Dose Admin Acetaminophen 1,000 mg 06/28/21 09:06 06/28/21 09:25 Acetaminophen 500mg Tab PO 06/28/21 09:07 1,000 mg ONCE ONE Administration Ketorolac Tromethamine 15 mg 06/28/21 09:06 06/28/21 09:25 Ketorolac 30mg/Ml Vial IV 06/28/21 09:07 15 mg ONCE ONE Administration ORDERS Category Date Time Status Rapid PCR Covid and Flu A/B Stat Lab 06/28/21 09:04 Ordered Medical Decision Narrative: Is a 41-year-old female with no past medical history presenting to the ED for body aches. Patient is awake, alert, not in acute distress. Patient is medically stable, afebrile. Patient's physical exam is unremarkable, she has clear breath sounds bilaterally soft nondistended nontender abdomen, no lower extremity edema. Differential includes but is not limited to COVID-19 pneumonia, low concern for bacterial pneumonia, pulmonary embolism. This a chest x-ray was performed. Chest x-ray read as patchy densities which are likely due to COVID-19 pneumonia. Clinically patient does not fit the picture of a bacterial pneumonia. At this point I will hold off antibiotics. patient was given IV fluids, ibuprofen, Toradol. Patient felt much better after therapies. This point patient is stable for discharge. Patient is given strict return precautions and isolation guidelines. General Adult HPI - General Chief complaint: Upper Respiratory Infection Stated complaint: covid exposure/symptoms Time Seen by Provider: 06/28/21 09:07 Mode of Arrival: Ambulatory Source of Information: Patient Limitations: No Limitations Description of Symptoms (Recalled from ER Triage Doc. by RN): Pt c/o PAULA, bodyaches, low-grade fever, dry cough since last night. - History of Present Illness HPI narrative: Patient is a 41-year-old female with no past medical history presenting to the ED with body aches and a dry cough. Patient states that since last night she started to have headache, severe diffuse body aches has progressively worsened. Patient states that she is also has a dry cough. Patient states that 2 of her children were Covid positive last week. Patient states that she is unvaccinated. Patient states that she has tried using Tylenol at home however continues to have significant symptoms. She denies any significant shortness of breath,
[2021-06-28 10:21] LABS: Influenza A, PCR Not Detected (NotDetected); Influenza B, PCR Not Detected (NotDetected)
[2021-06-28 11:15] VITALS: BP 112/79; PULSE 99; RESP 18; TEMP 37.1; O2SAT 97
[2021-06-28 11:21] LABS: Coronavirus 19, PCR Detected (NotDetected)
== END 2021-06-28 11:15 | disposition home or self-care (01) ==
LOC: ER 09:23
PROVIDERS: Emergency Provider Emergency Medicine; PCP Nurse Practitioner Family
DX: U07.1 COVID-19 (principal); F17.210 Nicotine dependence, cigarettes, uncomplicated
CPT/HCPCS: 71045; 96365; 96375; 99283; C9803; U0003; U0005

== ENCOUNTER 2021-12-24 18:22 | Emergency (ER) | payer MEDICAID, SELFPAY ==
[2021-12-24 18:58] VITALS: BP 108/68; PULSE 83; RESP 19; TEMP 37.1; O2SAT 98; BMI 24.3
--- NOTE | 2021-12-24 19:10 | HMH.EDUTC ---
[facility] [place] Disposition Clinical Impression: Encounter for laboratory testing for COVID-19 virus Disposition: Home, Self-Care Condition on Discharge: Good Instructions: DI for Fever (Symptom) -- Adult, DI for COVID-19 (Suspected or Confirmed ), Preventing the Spread of Coronavirus Discharge Instructions Additional Instructions: *Monitor Temp, Over the counter Motrin or Tylenol as directed/as needed Tylenol every 4 hours and Motrin every 6 hours (as long as your family doctor has told you that you can take it) for fever or pain. and straight to ER if unable to lower temp less than 101.0 after medication given *Warm salt water gargles may help to soothe the throat *Throat Lozenges *Warm fluids like tea with honey may help to soothe the throat *Sleep elevated *Humidifier/Vaporizer Follow up IMMEDIATELY for new or worsening symptoms or no Noticeable improvement over the next 48-72 hours. 911 for difficulty breathing or swallowing You were tested for today for COVID19 your test result should be back in the next 24-48 hours, you may check your Results on [facility] My Health Portal Make sure to take your Vitamins Vit. C Vit D and Zinc if you can take them Referrals: Damien Fofana APRN [Primary Care Provider] - As needed Forms: Work/School Release Time of Disposition: 19:12 Medical Decision Making - Stew Inquiry Pt receiving controlled substance: No Stew was queried for this patient: No Vital Signs: 12/24/21 18:58 Temperature 98.7 F Temperature Source Oral Pulse Rate [Left] 83 Respiratory Rate 19 Blood Pressure [Right Arm] 108/68 L Blood Pressure Mean [Right Arm] 81 02 Sat by Pulse Oximetry 98 Orders (Tests/Meds): ORDERS Category Date Time Status Covid-19 Nasal PCR ([facility]) Routine Lab 12/24/21 18:40 Received [facility] [place] HPI - General Stated complaint: covid+,PAUAL Body aches Time Seen by Provider: 12/24/21 19:10 Mode of Arrival: Ambulatory Source of Information: Patient Limitations: No Limitations Description of Symptoms (Recalled from Triage Doc. by RN): patient comes in for covid test. patient had at home positive. symptoms inclulde sore throat, runny nose, coughing, headache, body aches, chills. HEENT Symptoms (Recalled from RN notes): Yes Resp Symptoms (Recalled from RN notes): Yes Skin Symptoms (Recalled from RN notes): No MS Symptoms (Recalled from RN notes): No Functional Status (Recalled from RN notes): n/a - History of Present Illness Provider Complaint: Patient states that she wanted to get tested for COVID States that she took an at home test and it was positive States that she has been having nasal congestion, cough, scratchy throat and headache - Related Data Previous Rx's Medication Instructions Recorded hydroxyzine pamoate 25 mg capsule 25 mg PO TID PRN #60 cap 10/30/20 Ondansetron [Zofran 4mg ODT] 4 mg PO TIDP PRN #10 tab.rapdis 12/03/20 naproxen 500 mg tablet 500 mg PO BID #30 tab 05/14/21 prednisone 20 mg tablet 20 mg PO BID 5 Days #10 tab 05/14/21 escitalopram oxalate 10 mg tablet See Rx Instructions .ROUTE 10/20/21 .COMPLEX #90 tab Allergies Allergy/AdvReac Type Severity Reaction Status Date / Time cephalexin [CEPHALEXIN] Allergy Severe SWELLS Verified 12/24/21 19:02 THROAT Fish Containing Products Allergy Unknown I-HIVES Verified 12/24/21 19:02 [FISH CONTAINING PRODUCTS] orange juice [ORANGE JUICE] Allergy Unknown I-HIVES Verified 12/24/21 19:02 codeine [CODEINE] AdvReac Unknown MUSCLE Verified 12/24/21 19:02 SPASMS BANDAIDS Allergy Unknown RASH/SWELLI Uncoded 06/12/21 11:06 NG - Worker's Comp Is this a Worker's Comp case?: No [facility] History - Hepatitis A Screen Attestation statement:: This patient has been screened for Hepatitis A risk factors. I have reviewed the patient's past medical history: Yes Medical History: Reports:: Anxiety, Hepatitis Denies:: Cancer, Diabetes Mellitus Type 1, Diabetes Mellitus Type 2, Internal Pacemaker, MRSA, S
[2021-12-24 19:38] VITALS: BP 108/68; PULSE 83; RESP 19; TEMP 37.1
== END 2021-12-24 19:46 | disposition home or self-care (01) ==
PROVIDERS: Emergency Provider Nurse Practitioner; PCP Nurse Practitioner Family
DX: U07.1 COVID-19 (principal)
CPT/HCPCS: 99212; C9803; G0463; U0003; U0005

== ENCOUNTER 2022-02-21 06:20 | Emergency (ER) | payer MEDICAID, SELFPAY ==
[2022-02-21] VITALS (7 sets, daily range): BP systolic 105–128; BP diastolic 68–81; PULSE 61–78; RESP 16–18; TEMP 36.6–36.8; O2SAT 98–100; BMI 24.1
[2022-02-21 06:37] LABS: POC Glucose,Bedside 99 (70-110)
--- NOTE | 2022-02-21 06:38 | CT_ITS ---
PROCEDURE INFORMATION: Exam: CT Abdomen And Pelvis With Contrast Exam date and time: 02/21/2022 7:14 AM Age: 42 years old Clinical indication: Abdominal pain; Localized; Right lower quadrant (rlq); Patient HX: Rlq tenderness, abd pain, nausea, vomiting; Additional info: R upper abd pain, nausea TECHNIQUE: Imaging protocol: Computed tomography of the abdomen and pelvis with contrast. Radiation optimization: All CT scans at this facility use at least one of these dose optimization techniques: automated exposure control; mA and/or kV adjustment per patient size (includes targeted exams where dose is matched to clinical indication); or iterative reconstruction. Contrast material: ISOVUE; Contrast volume: 75 ml; Contrast route: IV; COMPARISON: CT ABDOMEN PELVIS W CON 12/03/2020 9:36 AM FINDINGS: Liver: Normal. No mass. Gallbladder and bile ducts: Normal. No calcified stones. No ductal dilation. Pancreas: Normal. No ductal dilation. Spleen: Normal. No splenomegaly. Adrenal glands: Normal. No mass. Kidneys and ureters: Normal. No hydronephrosis. Stomach and bowel: Unremarkable. No obstruction. No mucosal thickening. Appendix: No evidence of appendicitis. Intraperitoneal space: Unremarkable. No free air. No significant fluid collection. Vasculature: Unremarkable. No abdominal aortic aneurysm. Lymph nodes: Unremarkable. No enlarged lymph nodes. Urinary bladder: Unremarkable as visualized. Reproductive: Hysterectomy. Bones/joints: Unremarkable. No acute fracture. Soft tissues: Unremarkable. IMPRESSION: No acute findings.
[2022-02-21 07:08] LABS: Basophils # 0.1 K/mm3 (0-0.2); Basophils % 1.6 % (0.1-2.0); Eosinophils # 0.2 K/mm3 (0.0-0.4); Eosinophils % 2.8 % (0.1-12.0); Hematocrit 40.9 % (37.0-47.0); Hemoglobin 13.4 g/dL (12.2-16.2); Lymphocytes # 3.1 K/mm3 (0.7-4.5); Lymphocytes % 37.2 % (10-50); Mean Corpuscular HGB Conc 32.9 g/dL (31.8-35.4); Mean Corpuscular Hemoglobin 29.4 pg (27.0-31.2); Mean Corpuscular Volume 89.6 fl (81-99); Mean Platelet Volume 8.8 fl (7.4-10.4); Monocytes # 0.3 K/mm3 (0.1-1.0); Neutrophils # 4.5 K/mm3 (1.8-7.8); Neutrophils % 54.5 % (37.0-80.0); Platelet Count 302 K/mm3 (142-424); Red Blood Count 4.57 M/mm3 (4.20-5.40); Red Cell Distribution Width 13.5 % (11.5-17.5); White Blood Count 8.2 K/mm3 (4.8-10.8)
[2022-02-21 07:15] LABS: Alanine Aminotransferase 17 U/L (12-78); Albumin Level 4.1 g/dl (3.5-5.0); Albumin/Globulin Ratio 1.6 (1.1-1.8); Alkaline Phosphatase 48 U/L (38-126); Amylase 56 U/L (30-110); Anion Gap 13.1 mEq/L (5-15); Aspartate Amino Transferase 26 U/L (14-36); Bilirubin,Total 0.3 mg/dl (0.2-1.3); Blood Urea Nitrogen 12 mg/dl (7-17); Calcium 8.7 mg/dl (8.4-10.2); Carbon Dioxide 26 mmol/L (22.0-30.0); Chloride 105 mmol/L (98-107); Creatinine Clearance Estimated 137 mL/min (50-200); Estimated Glomerular Filt Rate 111 ml/min (>60); GFR (African American) 134 ML/MIN (>60); Globulin 2.6 g/dL (1.3-3.2); Glucose 82 mg/dl (74-100); Lipase 77 U/L (23-300); Potassium 4.1 mmoL/L (3.5-5.1); Sodium 140 mmol/L (136-145); Total Protein,Serum 6.7 g/dl (6.3-8.2)
--- NOTE | 2022-02-21 07:27 | HMH.EDABDPAI ---
Discharge Plan Disposition Patient Disposition: Still a Patient Chief Complaint: Abdominal Pain Prescriptions Prescriptions: No Action escitalopram oxalate [Lexapro] 10 mg Tablet 10 mg PO DAILY Referrals Follow up/Referrals: Damien Fofana APRN [Primary Care Provider] - See instructions Clinical Impressions Clinical Impression: Abdominal pain, Syncope, vasovagal Instructions Patient Instructions: DI for Acute Abdominal Pain Discharge ED Provider: Tushar Landon Abdominal Pain HPI General Chief Complaint: Abdominal Pain Stated Complaint: Lightheaded,nausea,freezing,body aches Time Seen by Provider: 02/21/22 07:27 Mode of Arrival: Ambulatory Source of Information: Patient and Medical Record Limitations: No Limitations Description of Symptoms (Recalled from ER Triage Doc. by RN): Pt states that she was at work this morning when she suddenly became very diaphoretic with nausea, feelings of clamminess and severe chills. Additional c/o unexplained weightloss in excess of 30lbs over the last two months without diet and associated right sided abdominal pain. History of Present Illness HPI narrative: pt with ongoing abd pain with inc today with assoc wt loss and had vasovagal episode Related Data Home Medications Medication Instructions Recorded Confirmed escitalopram oxalate 10 mg tablet 10 mg PO DAILY Anxiety 02/21/22 02/21/22 (Lexapro) Allergies Allergy/AdvReac Type Severity Reaction Status Date / Time cephalexin [CEPHALEXIN] Allergy Severe SWELLS Verified 12/24/21 19:02 THROAT Fish Containing Products Allergy Unknown I-HIVES Verified 12/24/21 19:02 [FISH CONTAINING PRODUCTS] codeine [CODEINE] AdvReac Unknown MUSCLE Verified 12/24/21 19:02 SPASMS BANDAIDS Allergy Unknown RASH/SWELLI Uncoded 06/12/21 11:06 [facility] Medical History (Updated 02/21/22 @ 08:43 by James Suarez MD) Anxiety Surgical History (Updated 02/21/22 @ 07:06 by Klarissa Acevedo RN) History of hysterectomy Social History (Updated 02/21/22 @ 07:07 by Klarissa Acevedo, ESCOBAR) Smoking Status: Current every day smoker tobacco type: cigarettes packs per day: 1 second hand exposure: Yes alcohol intake: never 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) current occupational status: other Travel in the last 8 weeks: None household members: family housing: house 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 current occupational exposures/hazards: No caffeine: Yes ROS Obtained: Yes All systems reviewed & no additional complaints except as documented Physical Exam General General appearance: alert Head Head exam: normocephalic Eye Eye exam: Present PERRL and EOMI ENT ENT exam: Present mucous membranes moist Neck Neck exam: Present trachea midline Respiratory Respiratory exam: Absent respiratory distress Cardiovascular Cardiovascular exam: Present regular rate Abdominal Exam Abdominal exam: Present soft and tenderness Abdominal tenderness: Present RLQ and moderate Extremities Exam Extremities exam: Present full ROM Neurological Exam Neurological exam: Present alert, oriented X3 and CN II-XII intact Psychiatric Psychiatric exam: Present normal affect Skin Skin exam: Absent rash Medical Decision Making Medical Records Medical records reviewed: Yes I reviewed the patient's medical records. Stew Inquiry Pt receiving controlled substance: No Vital Signs: 02/21/22 06:35 02/21/22 07:03 02/21/22 07:36 Temperature 98.3 F Temperature Source Oral Pulse Rate 65 64 Pulse Rate [Apical] 68 Respiratory Rate 16 18 16 Blood Pressure 105/71 L 121/81 Blood Pressure [Right Arm] 128/79 Blood Pressure Mean 82 92 Blood Pressure Mean [Right Arm] 95 Blood Pressure Source [Right Arm] Automatic Cuff Blood Pressure Position [Right Arm] Sitting 02 Sat by Pulse Oximetry 99 99 100 Oxygen Delivery Method Room Air
[2022-02-21 07:28] LABS: Hemoglobin A1C 5.3 % (4.0-6.0)
[2022-02-21 07:33] LABS: T4 (Thyroxine) 7.3 ug/dl (5.53-11.0)
[2022-02-21 07:39] LABS: Microscopic, Urine URINE MICROSCOPIC (MICROSCOPIC)
--- NOTE | 2022-02-21 07:39 | PC.NURSE ---
family at bedside updated on plan of care
[2022-02-21 07:43] LABS: Appearance,Urine CLEAR (Clear); Bilirubin,Urine Negative (Negative); Blood, Urine Negative (Negative); Color,Urine YELLOW (Yellow); Glucose,Urine (UA) Negative (Negative); Ketones,Urine Negative (Negative); Leukocyte Esterase,Urine Negative (Negative); Nitrate,Urine Negative (Negative); Protein,Urine Negative (Negative); Specific Gravity, Urine <= 1.005 (1.005-1.030); Urobilinogen,Urine 0.2 EU/dl (0.2)
[2022-02-21 07:46] LABS: Thyroid Stimulating Hormone 2.67 uIU/mL (0.465-4.68)
[2022-02-21 07:58] LABS: Squamous Epithelial Cell,Urine Occasional #/hpf (0-5)
--- NOTE | 2022-02-21 08:42 | PC.NURSE ---
called xray regarding ct reading. states it has been assigned
== END 2022-02-21 09:41 | disposition home or self-care (01) ==
PROVIDERS: Emergency Medicine; Emergency Provider Emergency Medicine; PCP Nurse Practitioner Family
DX: R10.9 Unspecified abdominal pain (principal); R42 Dizziness and giddiness; R61 Generalized hyperhidrosis; M79.10 Myalgia, unspecified site; R11.0 Nausea; R63.4 Abnormal weight loss; F41.9 Anxiety disorder, unspecified; F17.210 Nicotine dependence, cigarettes, uncomplicated; Z79.899 Other long term (current) drug therapy; Z88.5 Allergy status to narcotic agent; Z88.8 Allergy status to other drugs, medicaments and biological substances; Z91.013 Allergy to seafood; Z91.048 Other nonmedicinal substance allergy status; Z68.24 Body mass index [BMI] 24.0-24.9, adult
CPT/HCPCS: 74177; 80053; 81001; 82150; 82962; 83036; 83690; 84436; 84443; 85025; 96361; 96374; 99285; Q9967

== ENCOUNTER → 2022-05-08 18:18 | Outpatient (CLI) | payer MEDICAID, SELFPAY ==
[2022-05-08 17:47] LABS: Basophils # 0.1 K/mm3 (0-0.2); Basophils % 1.5 % (0.1-2.0); Eosinophils # 0.3 K/mm3 (0.0-0.4); Eosinophils % 3.1 % (0.1-12.0); Hematocrit 44.5 % (37.0-47.0); Hemoglobin 14.3 g/dL (12.2-16.2); Lymphocytes # 3.1 K/mm3 (0.7-4.5); Lymphocytes % 35.6 % (10-50); Mean Corpuscular HGB Conc 32.2 g/dL (31.8-35.4); Mean Corpuscular Hemoglobin 29.2 pg (27.0-31.2); Mean Corpuscular Volume 90.9 fl (81-99); Mean Platelet Volume 8.8 fl (7.4-10.4); Monocytes # 0.4 K/mm3 (0.1-1.0); Neutrophils # 4.9 K/mm3 (1.8-7.8); Neutrophils % 55.8 % (37.0-80.0); Platelet Count 355 K/mm3 (142-424); White Blood Count 8.7 K/mm3 (4.8-10.8)
[2022-05-08 18:30] LABS: Alanine Aminotransferase 16 U/L (12-78); Albumin Level 4.5 g/dl (3.5-5.0); Albumin/Globulin Ratio 1.8 (1.1-1.8); Alkaline Phosphatase 56 U/L (38-126); Anion Gap 15.9 mEq/L (5-15); Aspartate Amino Transferase 24 U/L (14-36); Bilirubin,Total 0.4 mg/dl (0.2-1.3); Blood Urea Nitrogen 8 mg/dl (7-17); Calcium 9.9 mg/dl (8.4-10.2); Carbon Dioxide 21 mmol/L (22.0-30.0); Chloride 108 mmol/L (98-107); Estimated Glomerular Filt Rate 93 ml/min (>60); GFR (African American) 112 ML/MIN (>60); Globulin 2.5 g/dL (1.3-3.2); Glucose 103 mg/dl (74-100); Potassium 3.9 mmoL/L (3.5-5.1); Sodium 141 mmol/L (136-145)
[2022-05-08 19:01] LABS: Thyroid Stimulating Hormone 0.87 uIU/mL (0.465-4.68)
== END ==
PROVIDERS: Nurse Practitioner Family; PCP Emergency Medicine; Visit Provider Emergency Medicine
DX: R53.83 Other fatigue (principal)
CPT/HCPCS: 80053; 84443; 85025

== ENCOUNTER 2022-05-10 12:04 | Emergency (ER) | payer MEDICAID, SELFPAY ==
[2022-05-10 12:05] VITALS: BP 130/74; PULSE 59; RESP 20; TEMP 36.7; O2SAT 99; BMI 24.7
[2022-05-10 12:23] VITALS: BMI 24.7
--- NOTE | 2022-05-10 12:25 | CT_ITS ---
PROCEDURE INFORMATION: Exam: CT Abdomen And Pelvis With Contrast Exam date and time: 05/10/2022 1:20 PM Age: 42 years old Clinical indication: Abdominal pain; Generalized; Additional info: Abdomen pain TECHNIQUE: Imaging protocol: Computed tomography of the abdomen and pelvis with contrast. Radiation optimization: All CT scans at this facility use at least one of these dose optimization techniques: automated exposure control; mA and/or kV adjustment per patient size (includes targeted exams where dose is matched to clinical indication); or iterative reconstruction. Contrast material: ISOVUE; Contrast volume: 75 ml; Contrast route: IV; COMPARISON: CT ABDOMEN PELVIS W CON 02/21/2022 7:14 AM FINDINGS: Lungs: Lung bases are unremarkable. Liver: There is a subcentimeter hyperenhancing lesion in the right hepatic lobe likely perfusional or a flash filling hemangioma. Gallbladder and bile ducts: Gallbladder is distended without radiopaque cholelithiasis. No biliary ductal dilation. Pancreas: No peripancreatic fluid stranding. No main pancreatic ductal dilation. Spleen: No splenomegaly. Adrenal glands: The adrenal glands are normal. Kidneys and ureters: Nephrograms are symmetric. No nephrolithiasis or hydroureteronephrosis on either side. No solid lesions Stomach and bowel: Unremarkable. No obstruction. No mucosal thickening. Appendix: A normal appendix is not well visualized. However, no evidence of inflammatory changes in the right lower quadrant to suggest acute appendicitis. Intraperitoneal space: There is no evidence of free intraperitoneal or pelvic fluid. Vasculature: Unremarkable. No abdominal aortic aneurysm. Lymph nodes: Unchanged scattered retroperitoneal nodes Urinary bladder: Urinary bladder is unremarkable. Reproductive: Status post hysterectomy Bones/joints: Unremarkable. No acute fracture. Soft tissues: Unremarkable. IMPRESSION: No acute abnormality in the abdomen or pelvis
[2022-05-10 12:33] LABS: Coronavirus 19, PCR Not Detected (NotDetected); Influenza A, PCR Not Detected (NotDetected); Influenza B, PCR Not Detected (NotDetected); Microscopic, Urine URINE MICROSCOPIC (MICROSCOPIC)
[2022-05-10 12:37] LABS: Chloride 107 mmol/L (98-107); Sodium 141 mmol/L (136-145)
[2022-05-10 12:38] LABS: Basophils # 0.1 K/mm3 (0-0.2); Basophils % 0.6 % (0.1-2.0); Eosinophils # 0.2 K/mm3 (0.0-0.4); Eosinophils % 1.3 % (0.1-12.0); Hematocrit 41.7 % (37.0-47.0); Hemoglobin 13.4 g/dL (12.2-16.2); Lymphocytes # 1.9 K/mm3 (0.7-4.5); Lymphocytes % 15.2 % (10-50); Mean Corpuscular HGB Conc 32.2 g/dL (31.8-35.4); Mean Corpuscular Hemoglobin 28.5 pg (27.0-31.2); Mean Corpuscular Volume 88.6 fl (81-99); Mean Platelet Volume 8.4 fl (7.4-10.4); Monocytes # 0.1 K/mm3 (0.1-1.0); Monocytes % 1.2 % (1.7-9.3); Neutrophils % 81.7 % (37.0-80.0); Platelet Count 374 K/mm3 (142-424); Red Cell Distribution Width 14.2 % (11.5-17.5); White Blood Count 12.2 K/mm3 (4.8-10.8)
[2022-05-10 12:39] LABS: Blood Urea Nitrogen 16 mg/dl (7-17); Creatinine Clearance Estimated 141 mL/min (50-200); Estimated Glomerular Filt Rate 111 ml/min (>60); GFR (African American) 134 ML/MIN (>60)
[2022-05-10 12:40] LABS: Alanine Aminotransferase 16 U/L (12-78); Albumin Level 4.6 g/dl (3.5-5.0); Albumin/Globulin Ratio 1.6 (1.1-1.8); Alkaline Phosphatase 59 U/L (38-126); Amylase 65 U/L (30-110); Aspartate Amino Transferase 23 U/L (14-36); Bilirubin,Total 0.3 mg/dl (0.2-1.3); Calcium 11.2 mg/dl (8.4-10.2); Carbon Dioxide 26 mmol/L (22.0-30.0); Globulin 2.9 g/dL (1.3-3.2); Glucose 115 mg/dl (74-100); Lipase 77 U/L (23-300); Total Protein,Serum 7.5 g/dl (6.3-8.2)
--- NOTE | 2022-05-10 12:44 | HMH.EDGENADL ---
Discharge Plan Disposition Patient Disposition: Home, Self-Care Condition: Good Prescriptions Prescriptions: New ondansetron 4 mg tablet,disintegrating 4 mg PO Q8H PRN (Reason: nausea and vomiting) 4 Days Qty: 12 0RF dicyclomine 10 mg capsule 10 mg PO TID PRN (Reason: pain) Qty: 20 0RF famotidine [Pepcid] 20 mg tablet 20 mg PO BID Qty: 60 0RF No Action escitalopram oxalate [Lexapro] 20 mg tablet 20 mg PO DAILY Qty: 30 2RF cetirizine [Zyrtec] 10 mg tablet 10 mg PO DAILY Qty: 30 2RF fluticasone propionate [Flonase Allergy Relief] 50 mcg/actuation spray,suspension 1 spray intranasal DAILY Qty: 16 2RF Rx Instructions: administer into each nostril prednisone 20 mg tablet 20 mg PO BID 5 Days Qty: 10 0RF naproxen 500 mg tablet 500 mg PO BID Qty: 30 0RF Referrals Follow up/Referrals: Damien Fofana APRN [Primary Care Provider] - See instructions Activity Restrictions/Add. Instructions Additional Instructions/Restrictions: You were evaluated in the emergency department today for abdominal pain. Please machine pecan picker your prescriptions at the pharmacy and take them as prescribed. Follow-up with your primary care provider over the next 48 hours. Return to the emergency department for any new or worsening symptoms. Clinical Impressions Clinical Impression: Abdominal pain Qualifiers: Abdominal location: epigastric Qualified Code(s): R10.13 - Epigastric pain Stand Alone Forms Stand Alone Forms: Work/School Release Instructions Patient Instructions: DI for Acute Abdominal Pain Discharge ED Provider: Ayanna Kelley General Adult HPI General Chief complaint: Abdominal Pain Stated complaint: abd pain, vomiting, numb lips Time Seen by Provider: 05/10/22 12:20 Mode of Arrival: Ambulatory Source of Information: Patient Limitations: No Limitations Description of Symptoms (Recalled from ER Triage Doc. by RN): c/o abdominal pain that started at 0800, started vomiting 30 minutes prior to arrival, States the vomit was green in color without any solids. Lip tingling on the left side, states she is unsure if this is her anxiety but she took an anxiety pill before coming and she feels really shakey and weak. History of Present Illness HPI narrative: This patient is a 42-year-old female with history of anxiety and gallbladder sludge presenting to the emergency department for evaluation of sharp and severe epigastric abdominal pain. She reports that it started this morning when she was at work. She states she also had nausea and vomiting. She did drink coffee this morning, but she was unable to keep it down. She denies any fevers, cough, congestion, diarrhea, urinary difficulties, or other concerns. Nothing makes her symptoms better or worse. She notes that she did become anxious at work and noted some perioral tingling, but that is resolving since taking her anxiety medication. Related Data Previous Rx's Medication Instructions Recorded cetirizine 10 mg tablet (Zyrtec) 10 mg PO DAILY #30 tabs 03/12/22 escitalopram oxalate 20 mg tablet 20 mg PO DAILY #30 tabs 03/12/22 (Lexapro) fluticasone propionate 50 1 spray intranasal DAILY #16 grams 03/12/22 mcg/actuation nasal spray,suspension (Flonase Allergy Relief) naproxen 500 mg tablet 500 mg PO BID #30 tabs 05/08/22 prednisone 20 mg tablet 20 mg PO BID 5 days #10 tabs 05/08/22 dicyclomine 10 mg capsule 10 mg PO TID PRN pain #20 caps 05/10/22 famotidine 20 mg tablet (Pepcid) 20 mg PO BID #60 tabs 05/10/22 ondansetron 4 mg disintegrating 4 mg PO Q8H PRN nausea and 05/10/22 tablet vomiting 4 days #12 tabs Allergies Allergy/AdvReac Type Severity Reaction Status Date / Time cephalexin [CEPHALEXIN] Allergy Severe SWELLS Verified 05/08/22 15:57 THROAT Fish Containing Products Allergy Unknown I-HIVES Verified 05/08/22 15:57 [FISH CONTAINING PRODUCTS] codeine [CODEINE] AdvReac Unknown MUSCLE Verified 05/08/22 15:57 SPASM
[2022-05-10 12:52] LABS: Appearance,Urine CLEAR (Clear); Blood, Urine TRACE-I (Negative); Color,Urine YELLOW (Yellow); Glucose,Urine (UA) Negative (Negative); Ketones,Urine TRACE (Negative); Leukocyte Esterase,Urine Negative (Negative); Nitrate,Urine Negative (Negative); PH,Urine 5.5 (5.0-8.5); Protein,Urine Negative (Negative); Specific Gravity, Urine >= 1.030 (1.005-1.030); Urobilinogen,Urine 0.2 EU/dl (0.2)
[2022-05-10 12:55] LABS: Bilirubin,Urine Negative (Negative)
[2022-05-10 12:56] LABS: Urine Pregnancy, HCG Qual. Negative (Negative)
[2022-05-10 13:00] VITALS: BP 128/77; PULSE 56; RESP 20; O2SAT 99
[2022-05-10 13:03] LABS: RBC,Urine Occasional #/hpf (0-3)
[2022-05-10 13:04] LABS: Mucus,Urine Trace /lpf
[2022-05-10 13:30] VITALS: BP 134/79; PULSE 56; RESP 20; O2SAT 99
[2022-05-10 14:00] VITALS: BP 130/80; PULSE 64; RESP 18; O2SAT 100
[2022-05-10 14:30] VITALS: BP 134/87; PULSE 51; RESP 20; O2SAT 100
[2022-05-10 15:17] VITALS: BP 134/87; PULSE 60; RESP 20; TEMP 36.7; O2SAT 100
== END 2022-05-10 15:18 | disposition home or self-care (01) ==
PROVIDERS: Emergency Provider Emergency Medicine; PCP Nurse Practitioner Family
DX: R10.13 Epigastric pain (principal); R11.2 Nausea with vomiting, unspecified; R20.2 Paresthesia of skin; R53.1 Weakness; Z20.822 Contact with and (suspected) exposure to COVID-19; F41.9 Anxiety disorder, unspecified; F17.210 Nicotine dependence, cigarettes, uncomplicated; Z79.51 Long term (current) use of inhaled steroids; Z79.52 Long term (current) use of systemic steroids; Z79.899 Other long term (current) drug therapy; Z88.5 Allergy status to narcotic agent; Z91.013 Allergy to seafood; Z91.048 Other nonmedicinal substance allergy status
CPT/HCPCS: 74177; 80053; 81001; 81025; 82150; 83690; 85025; 96361; 96374; 96375; 99285; C9803; J2405; Q9967; U0003; U0005

== ENCOUNTER 2022-10-12 03:53 | Emergency (ER) | payer OTHER, SELFPAY ==
[2022-10-12 03:54] VITALS: BP 129/85; PULSE 82; RESP 16; TEMP 36.8; O2SAT 97; BMI 25.3
--- NOTE | 2022-10-12 04:15 | HMH.EDHA ---
Discharge Plan Disposition Patient Disposition: Home, Self-Care Prescriptions Prescriptions: New prednisone [prednisone] 20 mg tablet 20 mg PO BID Qty: 10 0RF levofloxacin 500 mg tablet 500 mg PO DAILY Qty: 7 0RF No Action cetirizine [Zyrtec] 10 mg tablet 10 mg PO DAILY Qty: 30 2RF fluticasone propionate [Flonase Allergy Relief] 50 mcg/actuation spray,suspension 1 spray intranasal DAILY Qty: 16 2RF Rx Instructions: administer into each nostril prednisone 20 mg tablet 20 mg PO BID 5 Days Qty: 10 0RF naproxen 500 mg tablet 500 mg PO BID Qty: 30 0RF escitalopram oxalate 20 mg tablet See Rx Instructions .ROUTE .COMPLEX Qty: 30 2RF Dose Instruction: TAKE 1 TABLET BY MOUTH ONCE DAILY Rx Instructions: TAKE 1 TABLET BY MOUTH ONCE DAILY ondansetron 4 mg tablet,disintegrating 4 mg PO Q8H PRN (Reason: nausea and vomiting) 4 Days Qty: 12 0RF dicyclomine 10 mg capsule 10 mg PO TID PRN (Reason: pain) Qty: 20 0RF famotidine [Pepcid] 20 mg tablet 20 mg PO BID Qty: 60 0RF Referrals Follow up/Referrals: Damien Fofana APRN [Primary Care Provider] - See instructions Clinical Impressions Clinical Impression: Otitis media, Headache Instructions Patient Instructions: DI for Headache Discharge ED Provider: Daniela (ED)James Headache HPI General Chief Complaint: Headache Stated Complaint: headache, body aches, ear pain Time Seen by Provider: 10/12/22 04:15 Mode of Arrival: Ambulatory Source of Information: Patient and Medical Record Limitations: No Limitations Description of Symptoms (Recalled from ER Triage Doc. by RN): pt reports ear pain that started yesterday and got worse into the night the pt stated that she then got a sore throat and a headache. the pt states she woke up with all the same symptoms and now reports body aches. pt also has a hx of seasonal allergies History of Present Illness HPI Narrative: rt ear pain with sore throat and achey - no rash and has tob use - occ cough MD Complaint: headache Onset (ago): day(s) Onset description: gradual Location: diffuse Severity: moderate Quality: aching Exacerbating factors: none Context: recent URI Treatments prior to arrival: none Related Data Previous Rx's Medication Instructions Recorded cetirizine 10 mg tablet (Zyrtec) 10 mg PO DAILY #30 tabs 03/12/22 fluticasone propionate 50 1 spray intranasal DAILY #16 grams 03/12/22 mcg/actuation nasal spray,suspension (Flonase Allergy Relief) naproxen 500 mg tablet 500 mg PO BID #30 tabs 05/08/22 prednisone 20 mg tablet 20 mg PO BID 5 days #10 tabs 05/08/22 dicyclomine 10 mg capsule 10 mg PO TID PRN pain #20 caps 05/10/22 famotidine 20 mg tablet (Pepcid) 20 mg PO BID #60 tabs 05/10/22 ondansetron 4 mg disintegrating 4 mg PO Q8H PRN nausea and 05/10/22 tablet vomiting 4 days #12 tabs escitalopram oxalate 20 mg tablet See Rx Instructions .Route 09/28/22 .COMPLEX #30 tabs levofloxacin 500 mg tablet 500 mg PO DAILY #7 tabs 10/12/22 prednisone 20 mg tablet 20 mg PO BID #10 tabs 10/12/22 Allergies Allergy/AdvReac Type Severity Reaction Status Date / Time cephalexin [CEPHALEXIN] Allergy Severe SWELLS Verified 05/08/22 15:57 THROAT Fish Containing Products Allergy Unknown I-HIVES Verified 05/08/22 15:57 [FISH CONTAINING PRODUCTS] codeine [CODEINE] AdvReac Unknown MUSCLE Verified 05/08/22 15:57 SPASMS [facility] History Hepatitis A Screen Attestation statement:: This patient has been screened for Hepatitis A risk factors. I have reviewed the patient's past medical history: Yes Medical History: Reports: Anxiety and Hepatitis; Denies: Cancer, Diabetes Mellitus Type 1, Diabetes Mellitus Type 2, Internal Pacemaker, MRSA or Seizures Other Medical History: Reports Other; Denies Blood Transfusion Reaction Comment: Seasonal Allergies Anxiety Ovarian Cysts NOS Kidney Stones caused Sepsis Laterality Cases: Right: Carpal [place]
[2022-10-12 04:17] LABS: Microscopic, Urine URINE MICROSCOPIC (MICROSCOPIC)
[2022-10-12 04:18] LABS: Appearance,Urine CLOUDY (Clear); Bilirubin,Urine Negative (Negative); Blood, Urine Negative (Negative); Color,Urine YELLOW (Yellow); Glucose,Urine (UA) Negative (Negative); Ketones,Urine Negative (Negative); Leukocyte Esterase,Urine 1+ (Negative); Nitrate,Urine Negative (Negative); PH,Urine 8.5 (5.0-8.5); Protein,Urine Negative (Negative); Specific Gravity, Urine 1.015 (1.005-1.030); Urobilinogen,Urine 0.2 EU/dl (0.2)
[2022-10-12 04:37] LABS: Coronavirus 19, PCR Not Detected (NotDetected); Influenza A, PCR Not Detected (NotDetected); Influenza B, PCR Not Detected (NotDetected)
[2022-10-12 04:45] LABS: Amorphous Sediment,Urine 1+ /lpf; Bacteria,Urine 2+ /lpf; RBC,Urine Occasional #/hpf (0-3)
[2022-10-12 04:48] LABS: Strep Scrn Group A (Rapid) Negative (Negative)
[2022-10-12 05:32] VITALS: BP 129/85; PULSE 78; RESP 16; TEMP 36.7; O2SAT 97
== END 2022-10-12 05:41 | disposition home or self-care (01) ==
PROVIDERS: Emergency Provider Emergency Medicine; PCP Nurse Practitioner Family
DX: R51.9 Headache, unspecified (principal); H66.90 Otitis media, unspecified, unspecified ear; F17.210 Nicotine dependence, cigarettes, uncomplicated
CPT/HCPCS: 81001; 87086; 87430; 87635; 87636; 99284; 99285; C9803; U0003; U0005

== ENCOUNTER 2023-08-05 16:04 | Emergency (ER) | payer OTHER, SELFPAY ==
[2023-08-05 16:15] VITALS: BP 109/71; PULSE 70; RESP 20; TEMP 36.8; O2SAT 97; BMI 25.0
[2023-08-05 16:33] LABS: Apearance,Urine Clear (Clear); Color,Urine Yellow (Yellow)
[2023-08-05 16:34] LABS: Bilirubin,Urine Negative (Negative); Blood, Urine 1+ (Negative); Glucose,Urine (UA) Negative (Negative); Ketones,Urine Negative (Negative); Protein,Urine Negative (Negative); Specific Gravity, Urine >= 1.030 (1.005-1.030); UTC Leukocyte Esterase,Urine Negative (Negative); UTC Nitrate,Urine Negative (Negative); Urobilinogen,Urine 0.2 EU/dl (0.2)
--- NOTE | 2023-08-05 16:38 | ED_ITS ---
Discharge Plan Disposition Patient Disposition: Home, Self-Care Condition: Good Prescriptions Prescriptions: New methocarbamol 500 mg tablet 500 mg PO TID PRN (Reason: muscle spasm) Qty: 12 0RF methylprednisolone [Medrol (Naveed)] 4 mg tablets,dose pack See Rx Instructions .Route .COMPLEX 6 Days Qty: 21 0RF Rx Instructions: taper pack; No Action escitalopram oxalate 20 mg tablet See Rx Instructions .ROUTE .COMPLEX Qty: 30 1RF Dose Instruction: TAKE 1 TABLET BY MOUTH ONCE DAILY Rx Instructions: TAKE 1 TABLET BY MOUTH ONCE DAILY cetirizine 10 mg tablet See Rx Instructions .ROUTE .COMPLEX Qty: 30 0RF Dose Instruction: TAKE 1 TABLET BY MOUTH ONCE DAILY Rx Instructions: TAKE 1 TABLET BY MOUTH ONCE DAILY famotidine [Pepcid] 20 mg tablet 20 mg PO BID Qty: 60 0RF Referrals Follow up/Referrals: Damien Fofana APRN [Primary Care Provider] - See instructions Activity Restrictions/Add. Instructions Additional Instructions/Restrictions: Take medication as prescribed Start oral steriods (Medrol) tomorrow Follow up with your Family Doctor if no improvement or any worsening of symptoms *Ibuprofen sarah 6 hours with meal as needed for pain/inflammation *Remember you had a Toradol shot in the clinic today, which is similar to Motrin *Not additional anti-inflammatory like motrin, aleve, advil with the above amount of ibuprofen. You can still take Tylenol every 4 hours as needed if you need something else for pain *Ice 20 minutes every 2 hours for the first 48 hours after the initial injury followed by moist heat every 20 minutes 3-4 times a day to affected area *Muscle relaxer every 8 hours as needed for muscle spasms but remember, it WILL cause drowsiness You cannot take it and drive, operate machinery or care for small children. *Keep this area active, no movement leads to more stiffness, However take it easy and avoid heavy lifting pushing or pulling *Follow up with you family doctor if no improvement for further treatment Clinical Impressions Clinical Impression: Low back pain Qualifiers: Chronicity: unspecified Back pain laterality: bilateral Sciatica presence: with sciatica Sciatica laterality: sciatica of right side Qualified Code(s): M54.41 - Lumbago with sciatica, right side Stand Alone Forms Stand Alone Forms: Work/School Release Instructions Patient Instructions: DI for Low Back Pain, DI for Sciatica, DI for Chronic Pain -- Adult, DI for Back Pain With Sciatica Discharge ED Provider: Nedra Roldan [facility] General Stated complaint: back ache Mode of Arrival: Ambulatory Source of Information: Patient Limitations: No Limitations Time Seen by Provider: 08/05/23 16:38 Description of Symptoms (Recalled from Triage Doc. by RN): PATIENT C/O LOWER BACK PAIN THAT RADIATES INTO UPPER BACK THAT STARTED YESTERDAY. NO KNOWN INJURY HEENT Symptoms (Recalled from RN notes): No Resp Symptoms (Recalled from RN notes): No Skin Symptoms (Recalled from RN notes): No MS Symptoms (Recalled from RN notes): Yes Functional Status (Recalled from RN notes): WNL History of Present Illness Provider Complaint: Patient states that she has been having pain in her lower back area into her her hips/buttock area and feels like something is grabbing in there like a spasm States that she is unable to get comfortable sitting on her buttock area Denies known injury Denies loss of control of bowel or bladder Related Data Previous Rx's Medication Instructions Recorded famotidine 20 mg tablet (Pepcid) 20 mg PO BID #60 tabs 05/10/22 escitalopram oxalate 20 mg tablet See Rx Instructions .Route 06/28/23 .COMPLEX #30 tabs cetirizine 10 mg tablet See Rx Instructions .Route 08/04/23 .COMPLEX #30 tabs methocarbamol 500 mg tablet 500 mg PO TID PRN muscle spasm #12 08/05/23 tabs methylprednisolone 4 mg tablets in See Rx Instructions .Route 08/05/23 a dose pack (Medrol (Naveed)) .COMPLEX 6 days #21 tabs Allergies Allergy/AdvReac Type Severity Reaction Status Date / Time cephalexin [CEPHALEXIN] Allergy Severe SWELLS Verified 05/08/22 15:57 THROAT Fish Containing Products Allergy Unknown I-HIVES Verified 05/08/22 15:57 [FISH CONTAINING PRODUCTS] codeine [CODEINE] AdvReac Unknown MUSCLE Verified 05/08/22 15:57 SPASMS Worker's Comp Is this a Worker's Comp case?: No [facility] Disclaimer: The information contained in this section may have been updated after the patient was seen, as this information can be updated by other users. 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 current occupational exposures/hazards: No caffeine: Yes ROS Obtained: Yes All systems reviewed & no additional complaints except as documented and Yes Systems reviewed as appropriate & no additional complaints except as documented Constitutional Constitutional: Reports system reviewed and no additional complaints, except as documented, Reports as per HPI, Denies body ache and Denies fever(s) ENT Ears, Nose, Mouth, and Throat: Reports system reviewed and no additional complaints, except as documented and Reports as per HPI Cardiovascular Cardiovascular: Reports system reviewed and no additional complaints, except as documented and Reports as per HPI Respiratory Respiratory: Reports system reviewed and no additional complaints, except as documented and Reports as per HPI Gastrointestinal Gastrointestingal: Reports system reviewed and no additional complaints, except as documented and as per HPI Genitourinary Female Genitourinary: Reports system reviewed and no additional complaints, except as documented and Reports as per HPI Musculoskeletal Musculoskeletal: Reports system reviewed and no additional complaints, except as documented, Reports as per HPI and Reports back pain Physical Exam General General appearance: alert and in no apparent distress ENT ENT exam: Present mucous membranes moist Respiratory Respiratory exam: Present normal lung sounds bilaterally; Absent respiratory distress or wheezes Cardiovascular Cardiovascular exam: Present regular rate, normal rhythm and normal heart sounds Back Exam Back exam: Present tenderness, muscle spasm and sciatic notch tenderness (R) Back 1 view image: 2 1. Pain in lower back that goes into buttock area worse with movement Denies known injury Reports pain worse with sitting on right side and raising leg Denies loss of control of bowel or bladder Neurological Exam Neurological exam: Present alert, oriented X3 and normal gait Medical Decision Making Stew Inquiry Pt receiving controlled substance: No Stew was queried for this patient: No Vital Signs: 08/05/23 16:15 Temperature 98.3 F Temperature Source Oral Pulse Rate [Left Brachial] 70 Respiratory Rate 20 Blood Pressure [Left Arm] 109/71 L Blood Pressure Mean [Left Arm] 83 Blood Pressure Source [Left Arm] Automatic Cuff Blood Pressure Position [Left Arm] Sitting 02 Sat by Pulse Oximetry 97 Oxygen Delivery Method Room Air Lab Data Lab results reviewed: Yes I reviewed the patient's lab results. Lab Results 08/05/23 16:33: Urine Color Yellow, Urine Appearance Clear, Urine pH 6.0, Ur Specific [place] >= 1.030, Urine Protein Negative, Urine Glucose (UA) Negative, Urine Ketones Negative, Urine Blood 1+, Urine Nitrate Negative, Urine Bilirubin Negative, Urine Urobilinogen 0.2, Ur Leukocyte Esterase Negative
[2023-08-05] MEDS: KETOROLAC 30MG/ML VIAL 30 MG IM (17:08)
[2023-08-05 17:09] VITALS: BP 109/71; PULSE 70; RESP 20; TEMP 36.8; O2SAT 97
[2023-08-05] MEDS: METHYLPREDNISOLONE SOD SUCC 125MG VIAL 125 MG IM (17:09)
== END 2023-08-05 17:27 | disposition home or self-care (01) ==
PROVIDERS: Emergency Provider Nurse Practitioner; PCP Nurse Practitioner Family
DX: M54.41 Lumbago with sciatica, right side (principal); F17.210 Nicotine dependence, cigarettes, uncomplicated
CPT/HCPCS: 81003; 96372; 99212; 99214; G0463

== ENCOUNTER 2023-11-01 08:17 | Emergency (ER) | payer SELFPAY ==
[2023-11-01 08:30] VITALS: BP 109/74; PULSE 70; RESP 18; TEMP 36.6; O2SAT 100; BMI 24.9
[2023-11-01 08:38] VITALS: BMI 24.9
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
--- NOTE | 2023-11-01 09:00 | ED_ITS ---
Discharge Plan Disposition Patient Disposition: Home, Self-Care Condition: Good Prescriptions Prescriptions: No Action famotidine [Pepcid] 20 mg tablet 20 mg PO BID Qty: 60 0RF dicyclomine 10 mg Capsule 10 mg PO TID cetirizine 10 mg tablet 10 mg PO DAILY Rx Instructions: TAKE 1 TABLET BY MOUTH ONCE DAILY escitalopram oxalate 20 mg tablet 20 mg PO DAILY Rx Instructions: TAKE 1 TABLET BY MOUTH ONCE DAILY Referrals Follow up/Referrals: Dannie Loaiza MD [Primary Care Provider] - See instructions Clinical Impressions Clinical Impression: Chin contusion Qualifiers: Encounter type: initial encounter Qualified Code(s): S00.83XA - Contusion of other part of head, initial encounter Instructions Patient Instructions: DI for Contusion Discharge ED Provider: Cheryl Sheehan [facility] General Stated complaint: passed out hit L side face on floor Mode of Arrival: Ambulatory Source of Information: Patient Limitations: No Limitations Time Seen by Provider: 11/01/23 09:00 Description of Symptoms (Recalled from Triage Doc. by RN): PATIENT C/O PAIN TO CHIN AFTER PASSING OUT AND FALLING IN THE BATHROOM AT WORK THIS MORNING. SHE DOESN'T KNOW WHAT SHE HIT HER CHIN ON. SHE REPORTS A HISTORY OF IBS AND HAS PASSED OUT DURING FLARE-UPS HEENT Symptoms (Recalled from RN notes): No Resp Symptoms (Recalled from RN notes): No Skin Symptoms (Recalled from RN notes): No MS Symptoms (Recalled from RN notes): Yes Functional Status (Recalled from RN notes): WNL History of Present Illness Provider Complaint: Pt reports she has had issues with IBS and passing out with a vasovagal response. She states that she had an episode this morning and fell and hit her chin. She reports that her chin hurts to to touch. Related Data Home Medications Medication Instructions Recorded Confirmed cetirizine 10 mg tablet 10 mg PO DAILY 11/01/23 11/01/23 dicyclomine 10 mg capsule 10 mg PO TID 11/01/23 11/01/23 escitalopram oxalate 20 mg tablet 20 mg PO DAILY 11/01/23 11/01/23 Previous Rx's Medication Instructions Recorded famotidine 20 mg tablet (Pepcid) 20 mg PO BID #60 tabs 05/10/22 Allergies Allergy/AdvReac Type Severity Reaction Status Date / Time cephalexin [CEPHALEXIN] Allergy Severe SWELLS Verified 05/08/22 15:57 THROAT Fish Containing Products Allergy Unknown I-HIVES Verified 05/08/22 15:57 [FISH CONTAINING PRODUCTS] codeine [CODEINE] AdvReac Unknown MUSCLE Verified 05/08/22 15:57 SPASMS Worker's Comp Is this a Worker's Comp case?: No [facility] Disclaimer: The information contained in this section may have been updated after the patient was seen, as this information can be updated by other users. 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 current occupational exposures/hazards: No caffeine: Yes ROS Obtained: Yes All systems reviewed & no additional complaints except as documented Constitutional Constitutional: Reports system reviewed and no additional complaints, except as documented Eyes Eyes: Reports system reviewed and no additional complaints, except as documented ENT Ears, Nose, Mouth, and Throat: Reports system reviewed and no additional complaints, except as documented Cardiovascular Cardiovascular: Reports system reviewed and no additional complaints, except as documented and Reports syncope Respiratory Respiratory: Reports system reviewed and no additional complaints, except as documented Gastrointestinal Gastrointestingal: Reports system reviewed and no additional complaints, except as documented, abdominal pain and cramping Genitourinary Female Genitourinary: Reports system reviewed and no additional complaints, except as documented Musculoskeletal Musculoskeletal: Reports system reviewed and no additional complaints, except as documented Comments: chin pain Integumentary/Breasts Skin/Breast: Reports system reviewed and no additional complaints, except as documented Neurologic Neurologic: Reports system reviewed and no additional complaints, except as documented and Reports syncope Endocrine Endocrine: Reports system reviewed and no additional complaints, except as documented Hematologic/Lymphatic Henatologic/Lymphatic: Reports system reviewed and no additional complaints, except as documented Allergic/Immunologic Allergic/Immunologic: Reports system reviewed and no additional complaints, except as documented Physical Exam General General appearance: alert and in no apparent distress Head Head exam: atraumatic and normocephalic Eye Eye exam: Present normal appearance ENT ENT exam: Present normal exam Neck Neck exam: Present normal inspection Chest Chest inspection: Present normal inspection and symmetric chest wall rise Respiratory Respiratory exam: Present normal lung sounds bilaterally Cardiovascular Cardiovascular exam: Present regular rate and normal rhythm Abdominal Exam Abdominal exam: Present soft and normal bowel sounds Extremities Exam Extremities exam: Present normal inspection Back Exam Back exam: Present normal inspection Neurological Exam Neurological exam: Present alert, oriented X3 and normal gait Psychiatric Psychiatric exam: Present normal affect and normal mood Skin Skin exam: Present warm, dry and intact Lymphatic Lymphatic Findings: no adenopathy Other Other exam information: Pain expressed with palpitation of chin. Medical Decision Making Stew Inquiry Pt receiving controlled substance: No Stew was queried for this patient: No Vital Signs: 11/01/23 08:30 Temperature 97.9 F Temperature Source Oral Pulse Rate [Left Brachial] 70 Respiratory Rate 18 Blood Pressure [Left Arm] 109/74 L Blood Pressure Mean [Left Arm] 85 Blood Pressure Source [Left Arm] Automatic Cuff Blood Pressure Position [Left Arm] Sitting 02 Sat by Pulse Oximetry 100 Oxygen Delivery Method Room Air Orders (Tests/Meds): ORDERS Category Date Time Status Mandible XR minimum 4 views [XR mandible min 4V] Stat Exams 11/01/23 08:38 Taken Radiology Data #1: Image(s): Facial Bones Image Reviewed: Yes I reviewed the patient's radiology results and Yes I have reviewed radiologist's interpretation Preliminary Findings: Normal/NAD FINDINGS: 4 images of the mandible were obtained. There is no evidence of fracture or dislocation. The joint spaces are intact. There is o soft tissue abnormality identified. IMPRESSION: No acute bony abnormality.
[2023-11-01 10:16] VITALS: BP 109/74; PULSE 70; RESP 18; TEMP 36.6; O2SAT 100
== END 2023-11-01 10:19 | disposition home or self-care (01) ==
PROVIDERS: Emergency Provider Nurse Practitioner Family; PCP Family Medicine
DX: S00.83XA Contusion of other part of head, initial encounter (principal); R55 Syncope and collapse; W19.XXXA Unspecified fall, initial encounter
CPT/HCPCS: 70110; 99212; 99214; G0463

== ENCOUNTER 2023-11-17 15:47 | Emergency (ER) | payer SELFPAY ==
[2023-11-17 15:47] VITALS: BP 124/85; PULSE 88; RESP 18; TEMP 37.1; O2SAT 98; BMI 24.7
--- NOTE | 2023-11-17 15:48 | ECG_ITS ---
APPROVED REPORT Exam: Resting ECG HR:74 bpm ECG Measurements Heart Rate 74 AXES MO 166 P 73 QRSd 85 QRS 78 QT 357 T 73 QTc 384 Conclusion SINUS RHYTHM NORMAL ECG Electronically signed by : FLACO ESPARZA, 11/18/2023 07:06:14
[2023-11-17 15:49] VITALS: BMI 24.7
--- NOTE | 2023-11-17 15:49 | XR_ITS ---
FINAL REPORT CLINICAL HISTORY: Nonspecific Chest pain patient uses vape COMPARISON: 06/28/2021 FINDINGS: No acute pulmonary density is evident. There is no evidence of effusion or other pleural disease. The mediastinum has a normal appearance. The cardiac silhouette is unremarkable. IMPRESSION: Unremarkable chest exam. Reviewed, Interpreted and Dictated by Dayanna Valentino MD Transcribed by Danni Galloway Authenticated and [facility]
--- NOTE | 2023-11-17 16:00 | CT_ITS ---
PROCEDURE INFORMATION: Exam: CTA Chest With Contrast Exam date and time: 11/17/2023 4:48 PM Age: 43 years old Clinical indication: Pain; Radiating; Additional info: Chest pain radiating through to back TECHNIQUE: Imaging protocol: Computed tomographic angiography of the chest with contrast. Exam focused on the arteries. 3D rendering (Not supervised by radiologist): MIP and/or 3D reconstructed images were created by the technologist. Radiation optimization: All CT scans at this facility use at least one of these dose optimization techniques: automated exposure control; mA and/or kV adjustment per patient size (includes targeted exams where dose is matched to clinical indication); or iterative reconstruction. Contrast material: ISOVUE; Contrast volume: 70 ml; Contrast route: INTRAVENOUS (IV); COMPARISON: CR XR CHEST 2V 11/17/2023 3:58 PM FINDINGS: Pulmonary arteries: Normal. No pulmonary emboli. Aorta: Unremarkable. No aortic aneurysm. No aortic dissection. Lungs: Unremarkable. No consolidation. No masses. Pleural spaces: Unremarkable. No pneumothorax. No pleural effusion. Heart: Unremarkable. No cardiomegaly. No pericardial effusion. Lymph nodes: Unremarkable. No enlarged lymph nodes. Bones/joints: Unremarkable. No acute fracture. Soft tissues: Unremarkable. IMPRESSION: No acute findings.
--- NOTE | 2023-11-17 16:02 | ED_ITS ---
Discharge Plan Disposition Patient Disposition: Home, Self-Care Prescriptions Prescriptions: No Action famotidine [Pepcid] 20 mg tablet 20 mg PO BID Qty: 60 0RF dicyclomine 10 mg Capsule 10 mg PO TID cetirizine 10 mg tablet 10 mg PO DAILY Rx Instructions: TAKE 1 TABLET BY MOUTH ONCE DAILY escitalopram oxalate 20 mg tablet 20 mg PO DAILY Rx Instructions: TAKE 1 TABLET BY MOUTH ONCE DAILY Referrals Follow up/Referrals: Agustin Hannon MD [Staff Physician] - See instructions Clinical Impressions Clinical Impression: Chest pain Discharge ED Provider: Ramandeep Gaytan HPI General Chief Complaint: Chest Pain Stated Complaint: Chest pain Time Seen by Provider: 11/17/23 15:50 History of Present Illness HPI narrative: Patient is a 43-year-old female presents today with chest pain. States she has a history of several years of intermittent syncopal episodes she has been in the emergency department many times for this always told she had vasovagal syncope. She never followed up with cardiology. She is in the process of getting insurance and will follow-up with cardiology soon for that. She presents today with chest pain that started 20 minutes prior to arrival located left anterior chest radiating through to her back. No diaphoresis or nausea associated with this no exertional component. No history of coronary artery disease she has not had any hemoptysis lower extremity swelling prolonged immobilizations etc. No history of DVT or PE. Related Data Home Medications Medication Instructions Recorded Confirmed cetirizine 10 mg tablet 10 mg PO DAILY 11/01/23 11/01/23 dicyclomine 10 mg capsule 10 mg PO TID 11/01/23 11/01/23 escitalopram oxalate 20 mg tablet 20 mg PO DAILY 11/01/23 11/01/23 Previous Rx's Medication Instructions Recorded famotidine 20 mg tablet (Pepcid) 20 mg PO BID #60 tabs 05/10/22 Allergies Allergy/AdvReac Type Severity Reaction Status Date / Time cephalexin [CEPHALEXIN] Allergy Severe SWELLS Verified 05/08/22 15:57 THROAT Fish Containing Products Allergy Unknown I-HIVES Verified 05/08/22 15:57 [FISH CONTAINING PRODUCTS] codeine [CODEINE] AdvReac Unknown MUSCLE Verified 05/08/22 15:57 SPASMS PFSH COUNTS INCLUDE 234 BEDS AT THE [facility] Disclaimer: The information contained in this section may have been updated after the patient was seen, as this information can be updated by other users. 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 current occupational exposures/hazards: No caffeine: Yes ROS Obtained: Yes All systems reviewed & no additional complaints except as documented Physical Exam General General appearance: alert and in no apparent distress Chest Chest inspection: Present normal inspection, symmetric chest wall rise and tenderness (There is some left anterior chest wall tenderness) Respiratory Respiratory exam: Present normal lung sounds bilaterally; Absent respiratory distress Cardiovascular Cardiovascular exam: Present regular rate and normal rhythm Abdominal Exam Abdominal exam: Present soft; Absent distention or tenderness Neurological Exam Neurological exam: Present alert and oriented X3 HEART Score HEART Score HEART Score assessment performed?: Yes History (anamnesis): Slightly suspicious ECG: Normal Age: <45 years Risk factors: No known risk factors Troponin: </= normal limit HEART Score: 0 Critical Care Critical Care Time Critical Care Time: No Medical Decision Making Stew Inquiry Pt receiving controlled substance: No Vital Signs Vital Signs: 11/17/23 15:47 11/17/23 18:42 Temperature 98.7 F Temperature Source Oral Pulse Rate 57 L Pulse Rate [Right] 88 Respiratory Rate 18 Blood Pressure 120/81 Blood Pressure [Right Arm] 124/85 Blood Pressure Mean [Right Arm] 98 02 Sat by Pulse Oximetry 98 99 Oxygen Delivery Method Room Air Room Air Lab Data Lab results reviewed: Yes I reviewed the patient's lab results. Labs: Lab Results 11/17/23 15:58: Sodium 140, Potassium 4.7, Chloride 108 H, Carbon Dioxide 27, Anion Gap 9.7, BUN 14, Creatinine 0.70, Estimated Creat Clear 120, Estimated GFR 92, Est GFR ( Amer) 112, Glucose 84, Calcium 9.5, Total Bilirubin 0.4, AST 33, ALT 18, Alkaline Phosphatase 43, Troponin I < 0.01, Total Protein 7.5, Albumin 4.6, Globulin 2.9, Albumin/Globulin Ratio 1.6, Lipase 115 11/17/23 16:11: WBC 9.1, RBC 4.24, Hgb 12.3, Hct 38.2, MCV 90.0, MCH 29.1, MCHC 32.3, RDW 14.2, Plt Count 312, MPV 8.2, Neut % (Auto) 53.8, Lymph % (Auto) 37.6, Mcleod % (Auto) 3.2, Eos % (Auto) 4.1, Baso % (Auto) 1.2, Neut # (Auto) 4.9, Lymph # (Auto) 3.4, Mcleod # (Auto) 0.3, Eos # (Auto) 0.4, Baso # (Auto) 0.1 11/17/23 18:41: Troponin I < 0.01 11/17/23 16:11 11/17/23 15:58 Response Orders (Tests/Meds): ED MEDICATIONS Generic Name Dose Route Start Last Admin Trade Name Freq PRN Reason Stop Dose Admin Sodium Chloride 10 ml 11/17/23 15:50 Sodium Chloride 0.9% 10ml Flush Syringe IV 12/17/23 15:49 NEEDED PRN Maintain IV Site Sodium Chloride 10 ml 11/17/23 16:49 11/17/23 16:50 Sodium Chloride 0.9% 10ml Syr (Rad Only) IV 12/17/23 16:48 10 ml NEEDED PRN Administration Maintain IV Site Discontinued Medications Generic Name Dose Route Start Last Admin Trade Name Freq PRN Reason Stop Dose Admin Acetaminophen 1,000 mg 11/17/23 16:57 11/17/23 17:11 Acetaminophen 1,000mg/100ml Vial IV 11/17/23 16:58 1,000 mg ONCE ONE Administration Lactated Ringer's 1,000 mls @ 999 mls/hr 11/17/23 16:00 11/17/23 16:31 Lactated Ringer's 1000 Ml Bag IV 11/17/23 17:00 999 mls/hr .Q1H1M HUNG Administration Iopamidol 70 ml 11/17/23 16:49 11/17/23 16:50 Iopamidol-370 (76%);100ml Bottle IV 11/17/23 16:50 70 ml ONCE ONE Administration Ketorolac Tromethamine 15 mg 11/17/23 16:00 11/17/23 16:30 Ketorolac 30mg/Ml Vial IV 11/17/23 16:01 15 mg ONCE ONE Administration Ondansetron HCl 4 mg 11/17/23 16:00 11/17/23 16:31 Ondansetron 4mg/2ml Vial IV 11/17/23 16:01 4 mg ONCE ONE Administration Sodium Chloride 50 ml 11/17/23 16:49 11/17/23 16:50 0.9 % Sodium Chloride 50 Ml Vial IV 11/17/23 16:50 50 ml ONCE ONE Administration ORDERS Category Date Time Status CTA Chest [CT angio chest - dissection] Stat Cat Scan 11/17/23 16:00 Completed XR chest 2V Stat Exams 11/17/23 15:49 Completed Complete Blood Count Auto Diff Stat Lab 11/17/23 16:11 Completed Comprehensive Metabolic Panel Stat Lab 11/17/23 15:58 Completed Lipase Stat Lab 11/17/23 15:58 Completed Troponin I Q3H Lab 11/17/23 18:41 Completed Troponin I Q3H Lab 11/17/23 22:00 Ordered Troponin I Stat Lab 11/17/23 15:58 Completed ECG Data Tracing #1: Attestation: I reviewed this ECG and interpreted as documented below: ECG Narrative: Ventricular rate of 74 normal sinus rhythm no acute ischemic changes noted normal axis no conduction abnormalities MDM Narrative Medical Decision Narrative: Well-appearing 43-year-old female presenting today with sudden chest pain in the left anterior aspect of her chest wall radiating to her back. Differential includes acute coronary syndrome, musculoskeletal strain, anxiety, aortic dissection, pulmonary embolism etc. Will obtain a CT angio of her chest to rule out aortic dissection given her presenting symptoms. EKG was nonischemic. Should be able to visualize pulmonary vessels on the CT scan and rule out pulmonary embolism as well. Will get serial troponins given the fact that she is here within a few minutes of the onset of symptoms will take time for her troponins to elevate if there is any type of acute coronary syndrome which is unlikely. Heart score is very low. ED observation order has been placed in anticipation that her workup will be negative. IV fluids Toradol Zofran have been administered will reassess. Reassessment 4:58 PM patient still having the pain adding Tylenol onto her pain regimen. CT scan was performed to person interpreted I do not see any acute cardiopulmonary abnormality specifically no evidence of an aortic dissection or pulmonary embolism. Second troponin is pending. Overall patient still appears very well. Second troponin undetectably low. Second EKG was performed which I first interpreted shows a ventricular to 53 still no acute ischemic symptoms there is normal axis no arrhythmia or conduction abnormalities. No evidence of cardiopulmonary emergency she will follow-up outpatient with cardiology
[2023-11-17 16:17] LABS: Chloride 108 mmol/L (98-107); Sodium 140 mmol/L (136-145)
[2023-11-17 16:18] LABS: Potassium 4.7 mmoL/L (3.5-5.1)
[2023-11-17 16:19] LABS: Basophils # 0.1 K/mm3 (0-0.2); Basophils % 1.2 % (0.1-2.0); Eosinophils # 0.4 K/mm3 (0.0-0.4); Eosinophils % 4.1 % (0.1-12.0); Hematocrit 38.2 % (37.0-47.0); Hemoglobin 12.3 g/dL (12.2-16.2); Lymphocytes # 3.4 K/mm3 (0.7-4.5); Lymphocytes % 37.6 % (10-50); Mean Corpuscular HGB Conc 32.3 g/dL (31.8-35.4); Mean Corpuscular Hemoglobin 29.1 pg (27.0-31.2); Mean Platelet Volume 8.2 fl (7.4-10.4); Monocytes # 0.3 K/mm3 (0.1-1.0); Monocytes % 3.2 % (1.7-9.3); Neutrophils # 4.9 K/mm3 (1.8-7.8); Neutrophils % 53.8 % (37.0-80.0); Platelet Count 312 K/mm3 (142-424); Red Blood Count 4.24 M/mm3 (4.20-5.40); Red Cell Distribution Width 14.2 % (11.5-17.5); White Blood Count 9.1 K/mm3 (4.8-10.8)
[2023-11-17 16:19] LABS: Lipase 115 U/L (23-300)
[2023-11-17 16:20] LABS: Alanine Aminotransferase 18 U/L (12-78); Albumin Level 4.6 g/dl (3.5-5.0); Albumin/Globulin Ratio 1.6 (1.1-1.8); Alkaline Phosphatase 43 U/L (38-126); Anion Gap 9.7 mEq/L (5-15); Aspartate Amino Transferase 33 U/L (14-36); Bilirubin,Total 0.4 mg/dl (0.2-1.3); Blood Urea Nitrogen 14 mg/dl (7-17); Carbon Dioxide 27 mmol/L (22.0-30.0); Creatinine Clearance Estimated 120 mL/min (50-200); Estimated Glomerular Filt Rate 92 ml/min (>60); GFR (African American) 112 ML/MIN (>60); Globulin 2.9 g/dL (1.3-3.2); Total Protein,Serum 7.5 g/dl (6.3-8.2)
[2023-11-17 16:21] LABS: Calcium 9.5 mg/dl (8.4-10.2); Glucose 84 mg/dl (74-100)
[2023-11-17] MEDS: KETOROLAC 30MG/ML VIAL 15 MG IV (16:30)
[2023-11-17] MEDS: ONDANSETRON 4MG/2ML VIAL 4 MG IV (16:31)
[2023-11-17] MEDS: LACTATED RINGERS 1000ML 1,000 ML 999 ML IV (16:31)
[2023-11-17 16:32] LABS: Troponin I < 0.01 ng/ml (0.00-0.034)
[2023-11-17] MEDS: 0.9 % SODIUM CHLORIDE 50 ML VIAL IV (16:50)
[2023-11-17] MEDS: IOPAMIDOL-370 (76%);100ML BOTTLE 70 ML IV (16:50)
[2023-11-17] MEDS: SODIUM CHLORIDE 0.9% 10ML SYR (RAD ONLY) 10 ML IV (16:50)
[2023-11-17] MEDS: ACETAMINOPHEN 1,000MG/100ML VIAL 1000 MG IV (17:11)
[2023-11-17 18:42] VITALS: BP 120/81; PULSE 57; O2SAT 99
--- NOTE | 2023-11-17 19:09 | ECG_ITS ---
APPROVED REPORT Exam: Resting ECG HR:53 bpm ECG Measurements Heart Rate 53 AXES VT 185 P 67 QRSd 91 QRS 70 QT 411 T 63 QTc 395 Conclusion SINUS BRADYCARDIA BORDERLINE ECG UNCONFIRMED REPORT Electronically signed by : Jaden Gaytan, 11/17/2023 23:37:30
[2023-11-17 19:12] VITALS: BP 148/92; PULSE 55; RESP 21; O2SAT 100
--- NOTE | 2023-11-17 19:19 | PC.NURSE ---
family stepped out and said that patient was having chest pain again, repeat EKG done at [address] Gaytan. Patient placed on media monitor
[2023-11-17 19:27] LABS: Troponin I < 0.01 ng/ml (0.00-0.034)
[2023-11-17 19:30] VITALS: BP 131/95; PULSE 56; RESP 19; O2SAT 100
--- NOTE | 2023-11-17 19:33 | PC.NURSE ---
Attending notified that all tests are back and negative. Patient still having chest pain
[2023-11-17 19:49] VITALS: BP 131/95; PULSE 56; RESP 18; TEMP 37.1; O2SAT 99
== END 2023-11-17 19:50 | disposition home or self-care (01) ==
PROVIDERS: Emergency Provider Student in an Organized Health Care Education/Training Program; PCP Family Medicine
DX: R07.89 Other chest pain (principal); F17.210 Nicotine dependence, cigarettes, uncomplicated
CPT/HCPCS: 71046; 71275; 80053; 83690; 84484; 85025; 93005; 96361; 96374; 96375; 99285; J0131; J1885; J2405; J7120; Q9967

== ENCOUNTER 2023-11-29 11:33 | Outpatient (CLI) | payer OTHER, SELFPAY | END 2023-11-29 23:59 | disposition home or self-care (01) | LOC: RT 11:33 | PROVIDERS: PCP Family Medicine; Visit Provider Nurse Practitioner Family | DX: R55 Syncope and collapse (principal); R42 Dizziness and giddiness; R06.09 Other forms of dyspnea; R07.89 Other chest pain; Z82.49 Family history of ischemic heart disease and other diseases of the circulatory system; Z87.898 Personal history of other specified conditions; F17.210 Nicotine dependence, cigarettes, uncomplicated | CPT/HCPCS: 93270 ==

== ENCOUNTER 2024-01-03 07:43 | Outpatient (CLI) | payer OTHER, SELFPAY ==
--- NOTE | 2024-01-03 | CA_ITS ---
APPROVED REPORT Exam: Exercise Treadmill Technologist: Nancy Gill, Ht: 5 ft 7 in Wt: 157 lbs BSA: 1.82 m2 HR: 86 bpm BP: 111/77 mmHg Rhythm: NSR Medical History Medical History: Smoking Medications: Famotidine,,,,, DicyCLOMINE,,,,, CetIRIZINE,,,,, Escitalopram Oxalate,,,,, Allergies: CEPHALEXIN, FISH, CODEINE Cardiac Risk Factors: FHX of CAD, Smoking Stress Test Details Test: Mando HR Resting HR: 90 bpm Max Heart Rate (APMHR): 179 bpm Max HR Achieved: 164 bpm Target HR (85% APMHR): 152 bpm % of APMHR: 92 Recovery HR: 69 bpm HR response to stress: Normal HR response to stress BP Resting BP: 114.0/83 mmHg Max BP: 135/80 mmHg Recovery BP: 120.0/88.0 mmHg BP response to stress: Normal blood pressure response to stress. ECG Resting ECG: NSR Stress EC.[address] depression Arrhythmia: None Recovery ECG: Return to baseline within 3 minutes of recovery Recovery Arrhythmia: None Clinical Exercise duration: 07:51 min Highest Stage Achieved: Exercise capacity: 10.1 METs Overall Exercise Capacity for Age: Average Stress ECG Conclusion SYMPTOMS: FATIGUE, SHAKINESS AND SOA ST CHANGES: 0.[address] DEPRESSION ECTOPY: NONE CONCLUSION: AVERAGE EXERCISE CAPACITY ECG NOT SUGGESTIVE OF ISCHEMIA AT PEAK STRESS Test Summary REST . . . . . . . Standing REST . . . . . . . Sitting REST 02:18 0.0 0.0 90 . 114/ 83 . . Stage 1 01:00 10.0 1.7 102 . . . . Stage 1 02:00 10.0 1.7 108 . 115/ 82 . . Stage 1 03:00 10.0 1.7 108 . 115/ 82 . . Stage 2 01:00 12.0 2.5 123 . . . . Stage 2 02:00 12.0 2.5 126 . . . . Stage 2 03:00 12.0 2.5 133 . 135/ 80 . . Stage 3 01:00 14.0 3.4 147 . . . . Stage 3 01:51 14.0 3.4 154 . . . Stop exercise at 07:51 RECOVERY 01:00 0.0 0.0 115 . . . . RECOVERY 02:00 0.0 0.0 90 . . . . RECOVERY 03:00 0.0 0.0 87 . . . . RECOVERY 04:00 0.0 0.0 96 . . . . RECOVERY 05:00 0.0 0.0 71 . . . . RECOVERY 06:00 0.0 0.0 77 . . . . RECOVERY 07:00 0.0 0.0 0 . . . . RECOVERY 08:00 0.0 0.0 0 . . . . RECOVERY 08:03 0.0 0.0 0 . . . . Electronically signed by : Sonal Caba MD 01/10/2024 09:41:24
--- NOTE | 2024-01-03 07:43 | CA_ITS ---
APPROVED REPORT EXAM: Comprehensive 2D, Doppler, and color-flow Echocardiogram Transportation Associate: Kaye Roldan RT(R) Ht: 5 ft 7 in Wt: 157lbs BSA: 1.82 BP: 119/81 mmHg Indications: CP, smoker, syncope, BENITEZ, hx IVDU. 2D Dimensions LVEF (Le's) 62.10 % F: 54 - 74 LV Volume 81.90 mL F: 46 - 106 LV Volume Index 44.8 mL/m2 F: 29 - 61 LA Volume 13.50 mL LA Volume Index 7.38 mL/m2 (M/F) 16-34 EF AP4 55.50 % EF AP2 68.0 % EF BP 62.1 % GL Strain -19.3 % M-Mode Dimensions RVDd 2.25 cm (0.9-2.6) LA Diam 2.57 cm (1.9-4.0) LVDd 4.88 cm (3.5-5.7) LVDs 3.50 cm (3.5-5.7) IVSd 0.59 cm (0.6-1.1) PWd 0.72 cm (0.6-1.1) EF (Teich) 54.40% FS 28.30% EDV (Teich) 111.70 mL ESV (Teich) 50.90 mL LV Diastology E Decel Time 173 (160-240 msec) E/A Ratio 1.1 Mitral Valve MV E Max Deondre. 87.0 (40-130 cm/s) MV A Velocity 77.0 (40-130 cm/s) E/A Ratio 1.12 MV PHT 51.0 ms Left Ventricle The left ventricle is normal size. The left ventricular systolic function is normal. The left ventricular ejection fraction is within the normal range. There is normal left ventricular wall thickness. There is normal LV segmental wall motion. The left ventricular diastolic function is normal. LVEF is 55%. Right Ventricle The right ventricle is normal size. The right ventricular systolic function is normal. Atria The left atrium size is normal. The right atrium size is normal. There is no Doppler evidence of interatrial shunt. Lipomatous hypertrophy of the interatrial septum is noted. Aortic Valve The aortic valve opens well. There is no aortic valvular stenosis. No aortic regurgitation is present. Mitral Valve The mitral valve is normal in structure. No evidence of mitral valve stenosis. There is no mitral valve regurgitation noted. Tricuspid Valve The tricuspid valve leaflets are thin and pliable. Trace tricuspid regurgitation. There is insufficient TR jet to estimate RVSP. Pulmonic Valve The pulmonary valve is normal in structure. Trace pulmonic regurgitation. Great Vessels The aortic root is normal in size. The ascending aorta is not well-visualized. IVC is normal in size and collapses >50% with inspiration. Pericardium There is no pericardial effusion. Other Information Study Quality: Fair Conclusion Normal biventricular systolic function. Lipomatous hypertrophy of the interatrial septum is noted. No significant valvular stenosis or regurgitation. Electronically signed by : Sonal Caba MD 01/04/2024 00:32:25
== END 2024-01-03 23:59 | disposition home or self-care (01) ==
LOC: RT 07:43
PROVIDERS: PCP Family Medicine; Visit Provider Nurse Practitioner Family
DX: R07.89 Other chest pain (principal); R06.09 Other forms of dyspnea; R42 Dizziness and giddiness; R55 Syncope and collapse; Z82.49 Family history of ischemic heart disease and other diseases of the circulatory system; Z87.898 Personal history of other specified conditions; F17.210 Nicotine dependence, cigarettes, uncomplicated
CPT/HCPCS: 93017; 93018; 93306

== ENCOUNTER 2024-03-09 11:21 | Emergency (ER) | payer OTHER, SELFPAY ==
--- NOTE | 2024-03-09 11:35 | EXP.UTC ---
Discharge Plan Disposition Patient Disposition: Still a Patient Condition: Fair Prescriptions Prescriptions: No Action famotidine [Pepcid] 20 mg tablet 40 mg PO BID nadolol 20 mg tablet 10 mg PO DAILY Qty: 30 2RF dicyclomine 10 mg Capsule 10 mg PO TID cetirizine 10 mg tablet 10 mg PO DAILY Rx Instructions: TAKE 1 TABLET BY MOUTH ONCE DAILY escitalopram oxalate 20 mg tablet 20 mg PO DAILY Rx Instructions: TAKE 1 TABLET BY MOUTH ONCE DAILY Referrals Follow up/Referrals: Ana M Power APRN [Primary Care Provider] - See instructions Clinical Impressions Clinical Impression: Acute right flank pain Print Language Print Language: Sami Discharge ED Provider: Angel Burger [facility] [place] HPI General Stated complaint: right side pain Time Seen by Provider: 03/09/24 11:35 History of Present Illness Provider Complaint: She states that for the past 1 hour she has had moderate to severe right flank pain. She states that it started suddenly and she felt fine before it started. She denies any urinary complaints. She does have a history of kidney stones. Related Data Home Medications ?Medication ?Instructions ?Recorded ?Confirmed cetirizine 10 mg tablet 10 mg PO DAILY 11/01/23 02/10/24 dicyclomine 10 mg capsule 10 mg PO TID 11/01/23 02/10/24 escitalopram oxalate 20 mg tablet 20 mg PO DAILY 11/01/23 02/10/24 famotidine 20 mg tablet (Pepcid) 40 mg PO BID 01/10/24 02/10/24 Previous Rx's ?Medication ?Instructions ?Recorded nadolol 20 mg tablet 10 mg (1/2 x 20 mg) PO DAILY #30 01/10/24 tabs Allergies Allergy/AdvReac Type Severity Reaction Status Date / Time cephalexin [CEPHALEXIN] Allergy Severe SWELLS Verified 02/10/24 10:59 THROAT Fish Containing Products Allergy Unknown I-HIVES Verified 02/10/24 10:59 [FISH CONTAINING PRODUCTS] codeine [CODEINE] AdvReac Unknown MUSCLE Verified 02/10/24 10:59 SPASMS [facility] Disclaimer: The information contained in this section may have been updated after the patient was seen, as this information can be updated by other users. Medical History SVT (supraventricular tachycardia) PAC (premature atrial contraction) Palpitations Urinary tract infection Kidney stone IBS (irritable bowel syndrome) Depression Hyperlipidemia Anxiety Surgical History History of hysterectomy Social History Smoking Status: Current every day smoker tobacco type: cigarettes packs per day: 1 second hand exposure: Yes alcohol intake: never 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) current occupational status: other Travel in the last 8 weeks: None household members: family housing: house 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 current occupational exposures/hazards: No caffeine: Yes ROS Obtained: Yes All systems reviewed & no additional complaints except as documented Constitutional Constitutional: Denies chills and Denies fever(s) Eyes Eyes: Denies eye discharge ENT Ears, Nose, Mouth, and Throat: Denies dizziness, Denies otalgia and Denies sore throat Cardiovascular Cardiovascular: Denies chest pain Respiratory Respiratory: Denies shortness of breath, Denies chest congestion, Denies cough, Denies stridor and Denies wheezing Gastrointestinal Gastrointestingal: Reports as per HPI, abdominal pain and nausea; Denies constipation, cramping, diarrhea or vomiting Genitourinary Female Genitourinary: Reports as per HPI Musculoskeletal Musculoskeletal: Reports system reviewed and no additional complaints, except as documented and Denies arthralgias Integumentary/Breasts Skin/Breast: Denies rash Neurologic Neurologic: Denies dizziness and Denies paresthesias Allergic/Immunologic Allergic/Immunologic: Denies wheezing Physical Exam General General appearance: alert and in no apparent distress Head Head exam: atraumatic, normocephalic and normal inspection Eye Eye exam: Present normal appearance, PERRL and EOMI ENT ENT exam: Present normal exam, normal oropharynx, mucous membranes moist, TM's normal bilaterally and normal external ear exam Neck Neck exam: Present normal inspection, full ROM and trachea midline; Absent meningismus or lymphadenopathy Chest Chest inspection: Present normal inspection and symmetric chest wall rise; Absent tenderness Respiratory Respiratory exam: Present normal lung sounds bilaterally; Absent respiratory distress Cardiovascular Cardiovascular exam: Present regular rate and normal rhythm; Absent JVD Abdominal Exam Abdominal exam: Present soft, tenderness, guarding, normal bowel sounds and tenderness at McBurney's Point; Absent distention, rebound, rigidity, Bower's sign or Rovsing's sign Extremities Exam Extremities exam: Present normal inspection, full ROM and normal capillary refill; Absent calf tenderness Back Exam Back exam: Present normal inspection and full ROM; Absent tenderness, CVA tenderness (R) or CVA tenderness (L) Neurological Exam Neurological exam: Present alert and oriented X3 Psychiatric Psychiatric exam: Present normal affect and normal mood Skin Skin exam: Present warm, dry, intact and normal color Lymphatic Lymphatic Findings: no adenopathy Medical Decision Making Medical Records Medical records reviewed: No I reviewed the patient's medical records. Screening: Per USPSTF and CDC recommendations, given the prevalence of disease in our region, it is our hospital?s policy to screen for HIV and viral Hepatitis for all patients aged 18 and over and those with ongoing risk factors. Stew Inquiry Pt receiving controlled substance: No Lab Data Lab results reviewed: Yes I reviewed the patient's lab results. Medical Decision Narrative: She was transferred to the er due to her severe rigth flank pain.
[2024-03-09 11:42] LABS: Microscopic, Urine URINE MICROSCOPIC (MICROSCOPIC)
[2024-03-09 11:46] LABS: Appearance,Urine CLEAR (Clear); Blood, Urine Negative (Negative); Color,Urine YELLOW (Yellow); Glucose,Urine (UA) Negative (Negative); Ketones,Urine Negative (Negative); Leukocyte Esterase,Urine Negative (Negative); Nitrate,Urine Negative (Negative); Protein,Urine Negative (Negative); Specific Gravity, Urine >= 1.030 (1.005-1.030); Urobilinogen,Urine 0.2 EU/dl (0.2)
[2024-03-09 11:55] LABS: Bilirubin,Urine 1+ (Negative)
[2024-03-09 11:59] LABS: Bacteria,Urine Trace /lpf; Mucus,Urine 2+ /lpf; RBC,Urine Occasional #/hpf (0-3); Squamous Epithelial Cell,Urine Occasional #/hpf (0-5); WBC,Urine Occasional #/hpf (0-3)
[2024-03-09 12:04] VITALS: BP 115/80; BP 121/68; PULSE 53; PULSE 61; RESP 16; TEMP 36.6; O2SAT 100; O2SAT 97; BMI 24.7
[2024-03-09] MEDS: KETOROLAC 30MG/ML VIAL 15 MG IV (12:06)
[2024-03-09] MEDS: ONDANSETRON 4MG/2ML VIAL 4 MG IV (12:07)
[2024-03-09] MEDS: MORPHINE 4MG/ML SYRINGE 4 MG IV (12:16)
[2024-03-09 12:22] VITALS: BP 121/68; PULSE 74; RESP 21; TEMP 36.6; O2SAT 98; BMI 23.5
[2024-03-09 12:31] VITALS: BP 125/75; PULSE 63; O2SAT 100
[2024-03-09 12:31] LABS: Basophils # 0.2 K/mm3 (0-0.2); Basophils % 1.6 % (0.1-2.0); Eosinophils # 0.4 K/mm3 (0.0-0.4); Hematocrit 41.4 % (37.0-47.0); Hemoglobin 13.8 g/dL (12.2-16.2); Lymphocytes % 34.9 % (10-50); Mean Corpuscular HGB Conc 33.4 g/dL (31.8-35.4); Mean Corpuscular Hemoglobin 29.8 pg (27.0-31.2); Mean Corpuscular Volume 89.2 fl (81-99); Mean Platelet Volume 8.8 fl (7.4-10.4); Monocytes # 0.5 K/mm3 (0.1-1.0); Neutrophils # 6.5 K/mm3 (1.8-7.8); Neutrophils % 56.6 % (37.0-80.0); Platelet Count 334 K/mm3 (142-424); Red Blood Count 4.64 M/mm3 (4.20-5.40); Red Cell Distribution Width 14.3 % (11.5-17.5); White Blood Count 11.6 K/mm3 (4.8-10.8)
[2024-03-09 12:36] LABS: Alanine Aminotransferase 18 U/L (12-78); Albumin Level 4.2 g/dl (3.5-5.0); Albumin/Globulin Ratio 1.4 (1.1-1.8); Alkaline Phosphatase 38 U/L (38-126); Anion Gap 4.2 mEq/L (5-15); Aspartate Amino Transferase 36 U/L (14-36); Bilirubin,Total 0.7 mg/dl (0.2-1.3); Blood Urea Nitrogen 17 mg/dl (7-17); Calcium 9.1 mg/dl (8.4-10.2); Carbon Dioxide 28 mmol/L (22.0-30.0); Chloride 107 mmol/L (98-107); Creatinine Clearance Estimated 98 mL/min (50-200); Estimated Glomerular Filt Rate 79 ml/min (>60); GFR (African American) 95 ML/MIN (>60); Glucose 99 mg/dl (74-100); Potassium 5.2 mmoL/L (3.5-5.1); Sodium 134 mmol/L (136-145); Total Protein,Serum 7.2 g/dl (6.3-8.2)
[2024-03-09 13:00] VITALS: BP 119/77; PULSE 62; O2SAT 100
[2024-03-09 13:00] LABS: HCG,Quantitative < 2 mIU/ml (0-5.42)
--- NOTE | 2024-03-09 13:19 | HMH.EDGENADL ---
Discharge Plan Disposition Patient Disposition: Home, Self-Care Condition: Fair Prescriptions Prescriptions: No Action famotidine [Pepcid] 20 mg tablet 40 mg PO BID nadolol 20 mg tablet 10 mg PO DAILY Qty: 30 2RF dicyclomine 10 mg Capsule 10 mg PO TID cetirizine 10 mg tablet 10 mg PO DAILY Rx Instructions: TAKE 1 TABLET BY MOUTH ONCE DAILY escitalopram oxalate 20 mg tablet 20 mg PO DAILY Rx Instructions: TAKE 1 TABLET BY MOUTH ONCE DAILY Referrals Follow up/Referrals: Ana M Power APRN [Primary Care Provider] - See instructions Activity Restrictions/Add. Instructions Additional Instructions/Restrictions: Call your family doctor to establish care for this visit to the emergency department and schedule follow-up within 48 hours to ensure improvement. If you have any worsening of your condition or any other concerning signs or symptoms, return to the emergency department or your primary care doctor for further evaluation. I will contact you if radiology reads anything else abnormal on your scan. Clinical Impressions Clinical Impression: Acute right flank pain, Ureterolithiasis Stand Alone Forms Stand Alone Forms: Work/School Release Instructions Patient Instructions: DI for Kidney Stones Print Language Print Language: Latvian Discharge ED Provider: Angel Burger General Adult HPI General Chief complaint: PAIN Stated complaint: right side pain Time Seen by Provider: 03/09/24 11:35 Mode of Arrival: Family Vehicle Source of Information: Patient and Medical Record Limitations: No Limitations Description of Symptoms (Recalled from ER Triage Doc. by RN): Pt c/o sudden onset severe R flank pain with n/v. States she was at work when this started, denies ny recent trauma or heavy lifting. 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 Reports a hx of septic obtructing stone sever years ago. Denies any urinary symtoms. History of Present Illness HPI narrative: Please note that above description of symptoms, in this electronic medical record under categorization of recalled from ER triage doctor by RN are reflective of an initial nursing assessment, however, is not reflective of my full history and physical exam that was personally taken and clarified. Consequentially, this preceding description of symptoms, which may include the patient's categorized chief complaint in the EMR, do not reflect my personal clinical impression, and the ultimate description of history of present illness and patient stated complaints should be deferred to this section of the note. Unless stated otherwise or congruent with this section of the note, additional signs, symptoms, or incongruence should be interpreted as inaccurate with my clinical impression. Related Data Home Medications ?Medication ?Instructions ?Recorded ?Confirmed cetirizine 10 mg tablet 10 mg PO DAILY 11/01/23 02/10/24 dicyclomine 10 mg capsule 10 mg PO TID 11/01/23 02/10/24 escitalopram oxalate 20 mg tablet 20 mg PO DAILY 11/01/23 02/10/24 famotidine 20 mg tablet (Pepcid) 40 mg PO BID 01/10/24 02/10/24 Previous Rx's ?Medication ?Instructions ?Recorded nadolol 20 mg tablet 10 mg (1/2 x 20 mg) PO DAILY #30 01/10/24 tabs Allergies Allergy/AdvReac Type Severity Reaction Status Date / Time cephalexin [CEPHALEXIN] Allergy Severe SWELLS Verified 02/10/24 10:59 THROAT Fish Containing Products Allergy Unknown I-HIVES Verified 02/10/24 10:59 [FISH CONTAINING PRODUCTS] codeine [CODEINE] AdvReac Unknown MUSCLE Verified 02/10/24 10:59 SPASMS PF[facility] PFSH Disclaimer: The information contained in this section may have been updated after the patient was seen, as this information can be updated by other users. 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 current occupational exposures/hazards: No caffeine: Yes Other Medical History Have you received the Flu Vaccine for this season: No Have you received the Pneumonia Vaccine: No ROS Obtained: Yes All systems reviewed & no additional complaints except as documented Physical Exam General General appearance: alert and in distress (Secondary pain, walking around the room) Head Head exam: atraumatic and normocephalic Eye Eye exam: Present normal appearance, PERRL and EOMI Neck Neck exam: Present normal inspection, full ROM and trachea midline Respiratory Respiratory exam: Absent respiratory distress, wheezes, stridor, accessory muscle use or prolonged expiratory phase Cardiovascular Cardiovascular exam: Present regular rate, normal rhythm and other (Pulses equal symmetric in upper and lower extremities) Abdominal Exam Abdominal exam: Present soft; Absent distention, tenderness or pulsatile mass Extremities Exam Extremities exam: Absent edema Back Exam Back exam: Present CVA tenderness (R); Absent CVA tenderness (L) Neurological Exam Neurological exam: Present alert, oriented X3 and CN II-XII intact; Absent motor sensory deficit Skin Skin exam: Present warm and dry; Absent diaphoresis or erythema Medical Decision Making Medical Records Medical records reviewed: Yes I reviewed the patient's medical records. Screening: Per USPSTF and CDC recommendations, given the prevalence of disease in our region, it is our hospital?s policy to screen for HIV and viral Hepatitis for all patients aged 18 and over and those with ongoing risk factors. Stew Inquiry Pt receiving controlled substance: No Stew was queried for this patient: No Vital Signs: 03/09/24 12:04 03/09/24 12:04 03/09/24 12:22 Temperature 97.8 F 97.8 F Temperature Source Oral Oral Pulse Rate 53 L Pulse Rate [Radial] 61 74 Respiratory Rate 16 21 Blood Pressure 121/68 Blood Pressure [Right Arm] 115/80 121/68 Blood Pressure Mean Blood Pressure Mean [Right Arm] 91 85 Blood Pressure Source Blood Pressure Source [Right Arm] Automatic Cuff Automatic Cuff Blood Pressure Position [Right Arm] Sitting 02 Sat by Pulse Oximetry 100 97 98 Oxygen Delivery Method Room Air Room Air 03/09/24 12:31 03/09/24 13:00 03/09/24 14:51 Temperature 97.8 F Temperature Source Oral Pulse Rate 63 62 60 Pulse Rate [Radial] Respiratory Rate 18 Blood Pressure 125/75 119/77 120/75 Blood Pressure [Right Arm] Blood Pressure Mean 87 Blood Pressure Mean [Right Arm] Blood Pressure Source Automatic Cuff Blood Pressure Source [Right Arm] Blood Pressure Position [Right Arm] 02 Sat by Pulse Oximetry 100 100 Oxygen Delivery Method Room Air Room Air Lab Data Lab Results 03/09/24 11:32: Urine Color Yellow, Urine Appearance Clear, Urine pH 6.0, Ur Specific [place] >= 1.030, Urine Protein Negative, Urine Glucose (UA) Negative, Urine Ketones Negative, Urine Blood Negative, Urine Nitrate Negative, Urine Bilirubin 1+ A, Urine Urobilinogen 0.2, Ur Leukocyte Esterase Negative, Urine RBC Occasional, Urine WBC Occasional, Ur Squamous Epith Cells Occasional, Urine Bacteria Trace, Urine Mucus 2+ 03/09/24 11:56: WBC 11.6 H, RBC 4.64, Hgb 13.8, Hct 41.4, MCV 89.2, MCH 29.8, MCHC 33.4, RDW 14.3, Plt Count 334, MPV 8.8, Neut % (Auto) 56.6, Lymph % (Auto) 34.9, [place] % (Auto) 4.0, Eos % (Auto) 3.0, Baso % (Auto) 1.6, Neut # (Auto) 6.5, Lymph # (Auto) 4.0, [place] # (Auto) 0.5, Eos # (Auto) 0.4, Baso # (Auto) 0.2 03/09/24 12:19: Sodium 134 L, Potassium 5.2 H, Chloride 107, Carbon Dioxide 28, Anion Gap 4.2 L, BUN 17, Creatinine 0.80, Estimated Creat Clear 98, Estimated GFR 79, Est GFR ( Amer) 95, Glucose 99, Calcium 9.1, Total Bilirubin 0.7, AST 36, ALT 18, Alkaline Phosphatase 38, Total Protein 7.2, Albumin 4.2, Globulin 3.0, Albumin/Globulin Ratio 1.4, HCG, Quant < 2, HIV 1&2 Antibody Rapid Nonreactive 03/09/24 11:56 03/09/24 12:19 Orders (Tests/Meds): ED MEDICATIONS Discontinued Medications Generic Name Dose Route Start Last Admin Trade Name Freq PRN Reason Stop Dose Admin Iopamidol 80 ml 03/09/24 13:50 03/09/24 13:54 Iopamidol-370 (76%);100ml Bottle IV 03/09/24 13:51 80 ml ONCE ONE Administration Ketorolac Tromethamine 15 mg 03/09/24 12:06 03/09/24 12:06 Ketorolac 30mg/Ml Vial IV 03/09/24 12:07 15 mg ONCE ONE Administration Morphine Sulfate 4 mg 03/09/24 12:09 03/09/24 12:16 Morphine 4mg/Ml Syringe IV 03/09/24 12:10 4 mg ONCE ONE Administration Ondansetron HCl 4 mg 03/09/24 12:06 03/09/24 12:07 Ondansetron 4mg/2ml Vial IV 03/09/24 12:07 4 mg ONCE ONE Administration Ondansetron HCl 4 mg 03/09/24 12:09 03/09/24 12:49 Ondansetron 4mg/2ml Vial IV 03/09/24 12:10 Not Given ONCE ONE Sodium Chloride 10 ml 03/09/24 13:50 03/09/24 13:54 Sodium Chloride 0.9% 10ml Syr (Rad Only) IV 03/09/24 13:51 10 ml ONCE ONE Administration Sodium Chloride 50 ml 03/09/24 13:50 03/09/24 13:54 0.9 % Sodium Chloride 50 Ml Vial IV 03/09/24 13:51 50 ml ONCE ONE Administration ORDERS Category Date Time Status CT angio abdomen pelvis Stat Cat Scan 03/09/24 13:23 Completed CBC w/Auto Diff [Complete Blood Count Auto Diff] Stat Lab 03/09/24 11:56 Completed CMP [Comprehensive Metabolic Panel] Stat Lab 03/09/24 12:19 Completed HCG,Quantitative Stat Lab 03/09/24 12:19 Completed HIV (1&2) Antibody Rapid Stat Lab 03/09/24 12:19 Completed Hep C Ab with Reflex to RNA Stat Lab 03/09/24 12:19 Received UA [Urinalysis and Microscopic] Stat Lab 03/09/24 11:32 Completed Medical Decision Narrative: 44-year-old female history of hypertension, hyperlipidemia, SVT on nadolol, previous history of IV drug abuse in remission, hepatitis C, nephrolithiasis necessitating stenting presenting with flank pain. Patient states that about an hour and a half prior to arrival, she started having dull right flank pain. Quickly crescendoed into severe, stabbing right-sided flank pain and right side pain. Radiates anteriorly into her stomach. Nausea without vomiting, no dysuria, hematuria, frequency or urgency, no vaginal discharge or bleeding. No blood in her stool, constipation, diarrhea, fevers or chills, chest pain, shortness of breath, overlying skin changes, or any other concerns. Feels just like her kidney stone in the past. Has not taken anything for the pain. Initially went to urgent care, sent here for further evaluation. On arrival, patient very obviously in pain. Walking around the room, holding her right flank, sitting, standing, unable to get comfortable. Flank tenderness without abdominal tenderness on exam. No overlying skin changes. Differential includes nephrolithiasis, pyelonephritis, enteritis, ovarian torsion, ovarian cyst rupture, appendicitis, renal infarct, hepatitis, cholecystitis, among others. Patient given Toradol, morphine, Zofran. Independent interpretation of workup demonstrates mild leukocytosis 11.6, nonactionable overall. Patient's chemistry with mild hyperkalemic hyponatremia with potassium 5.2, sodium 134. No anion gap. Kidney function normal. Patient's LFTs normal. hCG negative. Urinalysis with no blood, protein, or other sequela concerning for stone or infection. CT abdomen pelvis with IV contrast was ordered to further elucidate cause of patient's pain. On independent interpretation this showed what appears to be small 1 mm stone in distal right ureter just proximal to UVJ. No other acute findings to explain patient's pain. On reevaluation, patient sitting comfortably, tolerating p.o., looks very clinically well. Patient has another appointment to run off to, wishing to be discharged so that she can make it. I told her I would contact her if anything was concerning and she needed to return. She is agreeable to this. Because patient at baseline without signs or symptoms of clinical decompensation, deemed appropriate for discharge. Results were relayed to patient who voiced understanding and were agreeable to outpatient management and follow up. I discussed my clinical impression with patient and answered all questions. At this time, the evidence for any other entities in the differential is insufficient to warrant any further testing or ED observation. This was explained as well. Advisory was given that persistent or worsening symptoms require further evaluation. I confirmed the understanding of this discussion.. Pe Teacher disclaimer Much of this encounter note is an electronic starbucks barista spoken language to printed text. Electronic starbucks barista of the spoken language may permit errors. Although I have reviewed the note, some errors may still exist. Critical Care Critical Care Time Critical Care Time: No
--- NOTE | 2024-03-09 13:23 | CT_ITS ---
FINAL REPORT CLINICAL HISTORY: severe, acute onset abd and flank pain R sided COMPARISON: 05/10/2022 FINDINGS: CTA ABDOMEN AND PELVIS Pre-and postcontrast images of the abdomen and pelvis were performed by computed tomography. Extensive 3-D reconstruction images were performed. A CTA was performed. This study was performed with techniques to keep radiation doses as low as reasonably achievable (ALARA). Individualized dose reduction techniques using automated exposure control or adjustment of mA and/or kV according to the patient's size were employed. ABDOMEN: The lung bases are clear. Precontrast images demonstrate no evidence of nephrolithiasis. There is a small contrast-enhancing focus in the right liver dome which may represent a small hemangioma. No adrenal masses are identified. The spleen and pancreas are unremarkable. PELVIS: The appendix is normal. The patient is status post hysterectomy. There is mild descending colon wall thickening of uncertain significance which could represent mild colitis. There are multiple mildly enlarged right lower quadrant mesenteric nodes which appear worse than the prior exam and may be reactive. There is free fluid in small bowel loops which may represent enteritis. CTA: The abdominal aorta is proper caliber. The SMA, celiac axis, and LIZBETH are patent. There is no significant stenosis or calcification. The renal arteries are patent bilaterally. IMPRESSION: No evidence of renal vascular hypertension or significant renal artery stenosis. Findings suggestive of mild colitis and mild enteritis. Likely small hemangioma in the right liver dome. Reviewed, Interpreted and Dictated by Guillermo Membreno III, MD Transcribed by Jordyn Miller Authenticated and [facility]
--- NOTE | 2024-03-09 13:32 | PC.NURSE ---
Pt taken to Ultrasound. CR
--- NOTE | 2024-03-09 13:53 | PC.NURSE ---
PT RETURNED FROM CT
[2024-03-09] MEDS: IOPAMIDOL-370 (76%);100ML BOTTLE 80 ML IV (13:54)
[2024-03-09] MEDS: 0.9 % SODIUM CHLORIDE 50 ML VIAL IV (13:54)
[2024-03-09] MEDS: SODIUM CHLORIDE 0.9% 10ML SYR (RAD ONLY) 10 ML IV (13:54)
--- NOTE | 2024-03-09 13:54 | PC.NURSE ---
Pt is back from ultrasound. CR
[2024-03-09 14:51] VITALS: BP 120/75; PULSE 60; RESP 18; TEMP 36.6; O2SAT 97
--- NOTE | 2024-03-09 14:51 | PC.NURSE ---
Dr. Burger at bedside discussing results. Pt states she needs to leave for another appt. He will d/c her and call with ct results.
[2024-03-09 15:57] LABS: HIV (1&2) Antibody Rapid NONREACTIVE (NONREACTIVE)
[2024-03-11 17:17] LABS: HCV Ab Reactive (Non Reactive)
== END 2024-03-09 15:05 | disposition home or self-care (01) ==
LOC: UTC 12:01 → ER 12:03
PROVIDERS: Nurse Practitioner Family; Emergency Provider Emergency Medicine; PCP Nurse Practitioner Family
DX: N20.1 Calculus of ureter (principal); R10.9 Unspecified abdominal pain; R11.2 Nausea with vomiting, unspecified; R68.83 Chills (without fever); F17.200 Nicotine dependence, unspecified, uncomplicated
CPT/HCPCS: 74174; 80053; 81001; 84702; 85025; 86803; 87389; 96374; 96375; 99284; J1885; J2270; J2405; Q9967

== ENCOUNTER 2024-03-11 20:05 | Observation (INO) | payer OTHER, SELFPAY ==
[2024-03-11] VITALS (9 sets, daily range): BP systolic 109–147; BP diastolic 74–98; PULSE 63–75; RESP 16–18; TEMP 36.6–37.2; O2SAT 97–100; BMI 24.7; BMI 25.7
--- NOTE | 2024-03-11 20:14 | HMH.EDGENADL ---
Discharge Plan Disposition Patient Disposition: Admitted Condition: Fair Clinical Impressions Clinical Impression: Intractable abdominal pain Discharge ED Provider: Angel Burger General Adult HPI <Yara Coppola (ED), PRIVACY COMPLIANCE MANAGER - Last Filed: 03/11/24 22:33> General Chief complaint: Abdominal Pain Stated complaint: abdominal pain,bloody stool Time Seen by Provider: 03/11/24 20:08 Mode of Arrival: Ambulatory Source of Information: Patient History of Present Illness HPI narrative: This is a 44-year-old female who presents to the ED today for complaint of blood in her stool and abdominal pain that is 8 out of 10. Tells me that she was here a few days ago and had a kidney stone that she believes she has passed. She has had no fever but she has had chills. She tells me every time she stands up she gets dizzy and passes blood. She does feel nauseous but has not had any vomiting. She usually handles her IBS with famotidine and Bentyl and that typically works for her. Today her abdominal pain is more in the lower part of her stomach both left lower and right lower abdominal pain. Patient has history of SVT, PACs, UTIs, kidney stones, IBS and anxiety. Related Data Home Medications ?Medication ?Instructions ?Recorded ?Confirmed cetirizine 10 mg tablet 10 mg PO HS 11/01/23 03/12/24 escitalopram oxalate 20 mg tablet 20 mg PO HS 11/01/23 03/12/24 famotidine 40 mg tablet 40 mg PO HS 03/12/24 03/12/24 Previous Rx's ?Medication ?Instructions ?Recorded nadolol 20 mg tablet 10 mg (1/2 x 20 mg) PO DAILY #30 01/10/24 tabs dicyclomine 10 mg capsule 10 mg PO TID PRN Abdominal 03/12/24 Discomfort 30 days #90 caps Allergies Allergy/AdvReac Type Severity Reaction Status Date / Time cephalexin [CEPHALEXIN] Allergy Severe SWELLS Verified 02/10/24 10:59 THROAT Fish Containing Products Allergy Unknown I-HIVES Verified 02/10/24 10:59 [FISH CONTAINING PRODUCTS] codeine [CODEINE] AdvReac Unknown MUSCLE Verified 02/10/24 10:59 SPASMS PFSH <Yara Coppola (ED), PRIVACY COMPLIANCE MANAGER - Last Filed: 03/11/24 22:33> PFSH Disclaimer: The information contained in this section may have been updated after the patient was seen, as this information can be updated by other users. Medical History (Updated 03/11/24 @ 23:44 by Jerry Gallegos APRN) Internal hemorrhoid Hx of hepatitis C Carpal tunnel syndrome on right SVT (supraventricular tachycardia) PAC (premature atrial contraction) Palpitations Urinary tract infection Kidney stone IBS (irritable bowel syndrome) Depression Hyperlipidemia Anxiety Surgical History (Updated 03/11/24 @ 23:36 by Jerry Gallegos APRN) History of tonsillectomy and adenoidectomy History of hysterectomy Social History (Updated 03/11/24 @ 23:22 by Isabelle Villegas RN) Smoking Status: Current every day smoker tobacco type: cigarettes packs per day: 1 second hand exposure: Yes alcohol intake: never 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) current occupational status: other Travel in the last 8 weeks: None household members: family housing: house 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 current occupational exposures/hazards: No caffeine: Yes Other Medical History Have you received the Flu Vaccine for this season: No Have you received the Pneumonia Vaccine: No <Yara Coppola (ED), PRIVACY COMPLIANCE MANAGER - Last Filed: 03/11/24 22:33> ROS Obtained: Yes Systems reviewed as appropriate & no additional complaints except as documented Constitutional Constitutional: Reports as per HPI Physical Exam <Yara Coppola (ED), PRIVACY COMPLIANCE MANAGER - Last Filed: 03/11/24 22:33> General General appearance: alert and in distress Comment: Patient in abdominal pain Head Head exam: atraumatic and normocephalic Eye Eye exam: Present normal appearance, PERRL and EOMI ENT ENT exam: Present normal exam, normal oropharynx and mucous membranes moist Neck Neck exam: Present full ROM and trachea midline Chest Chest inspection: Present normal inspection Respiratory Respiratory exam: Present normal lung sounds bilaterally Cardiovascular Cardiovascular exam: Present regular rate, normal rhythm, normal heart sounds, +S1 and +S2 Abdominal Exam Abdominal exam: Present soft, tenderness and normal bowel sounds Abdominal tenderness: Present RLQ, LLQ and moderate Extremities Exam Extremities exam: Present normal inspection, full ROM and normal capillary refill Neurological Exam Neurological exam: Present alert and oriented X3 Skin Skin exam: Present warm, dry and intact Medical Decision Making <Yara Coppola (ED), PRIVACY COMPLIANCE MANAGER - Last Filed: 03/11/24 22:33> Medical Records Screening: Per USPSTF and CDC recommendations, given the prevalence of disease in our region, it is our hospital?s policy to screen for HIV and viral Hepatitis for all patients aged 18 and over and those with ongoing risk factors. Stew Inquiry Pt receiving controlled substance: No Vital Signs: 03/11/24 20:07 03/11/24 20:12 03/11/24 20:31 Temperature 98.3 F Temperature Source Oral Pulse Rate 72 75 Pulse Rate [Left] 71 Respiratory Rate 18 Blood Pressure 147/98 H 109/74 L Blood Pressure [Right Arm] 147/98 H Blood Pressure Mean [Right Arm] 114 Blood Pressure Source Blood Pressure Position 02 Sat by Pulse Oximetry 100 100 100 Oxygen Delivery Method Room Air 03/11/24 21:00 03/11/24 21:41 03/11/24 22:00 Temperature Temperature Source Pulse Rate 65 75 66 Pulse Rate [Left] Respiratory Rate Blood Pressure 122/88 129/88 124/83 Blood Pressure [Right Arm] Blood Pressure Mean [Right Arm] Blood Pressure Source Blood Pressure Position 02 Sat by Pulse Oximetry 97 100 99 Oxygen Delivery Method 03/11/24 22:38 03/11/24 22:42 Temperature 97.9 F Temperature Source Oral Pulse Rate 71 Pulse Rate [Left] 71 Respiratory Rate 18 18 Blood Pressure 117/75 Blood Pressure [Right Arm] Blood Pressure Mean [Right Arm] Blood Pressure Source Automatic Cuff Blood Pressure Position Supine 02 Sat by Pulse Oximetry 98 Oxygen Delivery Method Room Air Room Air Lab Data Lab Results 03/11/24 20:27: WBC 14.5 H, RBC 4.66, Hgb 13.7, Hct 40.3, MCV 86.5, MCH 29.3, MCHC 33.9, RDW 14.3, Plt Count 313, MPV 8.3, Neut % (Auto) 71.5, Lymph % (Auto) 21.9, Perry % (Auto) 4.1, Eos % (Auto) 1.6, Baso % (Auto) 0.9, Neut # (Auto) 10.4 H, Lymph # (Auto) 3.2, Perry # (Auto) 0.6, Eos # (Auto) 0.2, Baso # (Auto) 0.1, ESR 16, PT 10.4, INR 0.92, APTT 27.2, Sodium 136, Potassium 3.8 D, Chloride 108 H, Carbon Dioxide 26, Anion Gap 5.8, BUN 15, Creatinine 0.60 D, Estimated Creat Clear 138, Estimated GFR 110, Est GFR ( Amer) 133 D, Glucose 91, Calcium 9.4, Total Bilirubin 0.5, AST 31, ALT 24 D, Alkaline Phosphatase 47, C-Reactive Protein 3.7, Total Protein 7.4, Albumin 4.5, Globulin 2.9, Albumin/Globulin Ratio 1.6, Lipase 107 03/11/24 20:45: Urine Color Cancelled, Urine Appearance Cancelled, Urine pH Cancelled, Ur Specific [place] Cancelled, Urine Protein Cancelled, Urine Glucose (UA) Cancelled, Urine Ketones Cancelled, Urine Blood Cancelled, Urine Nitrate Cancelled, Urine Bilirubin Cancelled, Urine Urobilinogen Cancelled, Ur Leukocyte Esterase Cancelled, Urine RBC Cancelled, Urine WBC Cancelled, Ur Squamous Epith Cells Cancelled, Ur Transition Epith Cell Cancelled, Ur Renal Epithelial Cell Cancelled, Calcium Carbonate Cryst Cancelled, Calcium Phosphate Cryst Cancelled, Calcium Oxalate Crystal Cancelled, Cystine Crystals Cancelled, Uric Acid Crystals Cancelled, Triple Phos Crystals Cancelled, Tyrosine Crystals Cancelled, Other Crystals Cancelled, Amorphous Sediment Cancelled, Other Sediment Cancelled, Urine Bacteria Cancelled, Fatty Casts Cancelled, Hyaline Casts Cancelled, Fine Granular Casts Cancelled, Coarse Granular Casts Cancelled, Waxy Casts Cancelled, RBC Casts Cancelled, WBC Casts Cancelled, Other Casts Cancelled, Urine Mucus Cancelled, Urine Trichomonas Cancelled, Urine Yeast Cancelled, Urine Sperm Cancelled 03/11/24 20:49: Stl Aeromonas (PCR) Not detected, Stl C. cayetanensis PCR Not detected, Stool Rotavirus (PCR) Not detected, Stl Adenov F 40/41 PCR Not detected, Stool Astrovirus (PCR) Not detected, Stool Campylobacter PCR Not detected, Stl C.difficile Tox PCR Not detected, Stool Cryptosporidium PCR Not detected, Stl E.coli Shiga Tox PCR Not detected, Stool E coli O157 PCR Not detected, Stl Enterotoxigenic E PCR Not detected, Stool EPEC (PCR) Not detected, Stool EAEC (PCR) Not detected, Stl E. histolytica PCR Not detected, Stool Giardia Lamblia PCR Not detected, Stool Salmonella PCR Not detected, Stool Sapovirus (PCR) Not detected, Stl P. shigelloides PCR Not detected, Stl Shigella/EIEC PCR Not detected, St Y.enterocolitica PCR Not detected, Stool Vibrio (PCR) Not detected, Stl Vibrio cholerae PCR Not detected, Stl Norovirus GI/GII PCR Not detected 03/12/24 07:13 03/12/24 07:13 Orders (Tests/Meds): ED MEDICATIONS Discontinued Medications Generic Name Dose Route Start Last Admin Trade Name Freq PRN Reason Stop Dose Admin Acetaminophen 650 mg 03/11/24 22:55 Acetaminophen 325mg Tab PO 04/10/24 22:54 Q4HP PRN Fever or Mild Pain (1-3) Citalopram Hydrobromide 40 mg 03/12/24 09:00 Citalopram 40mg Tablet PO 04/11/24 08:59 DAILY HUNG Citalopram Hydrobromide 40 mg 03/12/24 21:00 Citalopram 40mg Tablet PO 04/11/24 20:59 HS HUNG Dicyclomine HCl 20 mg 03/11/24 20:21 03/11/24 20:45 Dicyclomine 10mg Capsule PO 03/11/24 20:22 20 mg ONCE ONE Administration Dicyclomine HCl 10 mg 03/12/24 09:00 03/12/24 08:51 Dicyclomine 10mg Capsule PO 04/11/24 08:59 10 mg TID HUNG Administration Hydromorphone HCl 0.5 mg 03/11/24 21:53 03/11/24 21:58 Hydromorphone 2mg/Ml Syringe IV 03/11/24 21:54 0.5 mg ONCE ONE Administration Hydromorphone HCl 2 mg 03/11/24 22:55 03/12/24 08:34 Hydromorphone 2mg/Ml Syringe IV 04/10/24 22:54 2 mg Q4HP PRN Administration Severe Pain (7-10) Lactated Ringer's 1,000 mls @ 75 mls/hr 03/11/24 23:00 03/11/24 23:31 Lactated Ringer's 1000 Ml Bag IV 04/10/24 22:59 75 mls/hr .[id number] HUNG Administration Magnesium Sulfate 2 gm in 50 mls @ 50 mls/hr 03/12/24 08:03 03/12/24 08:51 Magnesium Sulfate 2gm/50ml Premix IV 03/12/24 09:02 50 mls/hr ONCE ONE Administration Iopamidol 75 ml 03/11/24 21:41 03/11/24 21:42 Iopamidol-370 (76%);100ml Bottle IV 03/11/24 21:42 75 ml ONCE ONE Administration Ketorolac Tromethamine 15 mg 03/11/24 22:55 03/12/24 07:33 Ketorolac 30mg/Ml Vial IV 03/16/24 22:54 15 mg Q6HP PRN Administration Moderate Pain (4-6) Loratadine 10 mg 03/12/24 09:00 Loratadine 10mg Tablet PO 04/11/24 08:59 DAILY HUNG Loratadine 10 mg 03/12/24 21:00 Loratadine 10mg Tablet PO 04/11/24 20:59 HS [facility] Morphine Sulfate 2 mg 03/11/24 20:21 03/11/24 20:45 Morphine 2mg/Ml Syringe IV 03/11/24 20:22 2 mg ONCE ONE Administration Nadolol 10 mg 03/12/24 09:00 Nadolol 20mg Tablet PO 04/11/24 08:59 DAILY HUNG Nadolol 10 mg 03/12/24 21:00 Nadolol 20mg Tablet PO 04/11/24 20:59 HS HUNG Ondansetron HCl 4 mg 03/11/24 20:21 03/11/24 20:44 Ondansetron 4mg/2ml Vial IV 03/11/24 20:22 4 mg ONCE ONE Administration Ondansetron HCl 4 mg 03/11/24 22:55 03/12/24 08:34 Ondansetron 4mg/2ml Vial IV 04/10/24 22:54 4 mg Q8HP PRN Administration Nausea Pantoprazole Sodium 40 mg 03/11/24 20:21 03/11/24 20:45 Pantoprazole 40mg Vial IV 03/11/24 20:22 40 mg ONCE ONE Administration Pantoprazole Sodium 40 mg 03/12/24 21:00 Pantoprazole 40mg Tablet PO 04/11/24 20:59 HS HUNG Sodium Chloride 10 ml 03/11/24 20:21 Sodium Chloride 0.9% 10ml Vial IV 04/10/24 20:20 NEEDED PRN dilute protonix Sodium Chloride 10 ml 03/11/24 21:41 03/11/24 21:42 Sodium Chloride 0.9% 10ml Syr (Rad Only) IV 04/10/24 21:40 10 ml NEEDED PRN Administration Maintain IV Site Sodium Chloride 10 ml 03/11/24 22:55 Sodium Chloride 0.9% 10ml Flush Syringe IV 04/10/24 22:54 NEEDED PRN Maintain IV Site Sodium Chloride 10 ml 03/11/24 22:55 Sodium Chloride 0.9% 10ml Flush Syringe IV 04/10/24 22:54 NEEDED PRN Maintain IV Site ORDERS Category Date Time Status CT abdomen pelvis wo/w con Stat Cat Scan 03/11/24 20:22 Completed Activated Partial Thrombo Time Stat Lab 03/11/24 20:27 Completed CBC [Complete Blood Count Auto Diff] Stat Lab 03/11/24 20:27 Completed CRP [C-Reactive Protein] Routine Lab 03/11/24 20:27 Completed Comprehensive Metabolic Panel Stat Lab 03/11/24 20:27 Completed Diarrhea 23 Panel, PCR Routine Lab 03/11/24 20:49 Completed Erythrocyte Sedimentation Rate Routine Lab 03/11/24 20:27 Completed Lipase Stat Lab 03/11/24 20:27 Completed Prothrombin Time INR Stat Lab 03/11/24 20:27 Completed Urinalysis and Microscopic Routine Lab 03/11/24 21:04 Ordered Urine , HCG Qual. Routine Lab 03/11/24 21:04 Ordered Medical Decision Narrative: Insert review patient is a 44-year-old female presenting to the emergency department for evaluation of abdominal pain and blood in stool. Patient is hemodynamically stable and nontoxic-appearing upon arrival, afebrile. Differential diagnosis includes abdominal pain, diverticulitis, IBS, GI bleed among others. Workup will be conducted with hematologic labs, specific imaging including a CT scan of abdomen and pelvis. Initial inventions include pain meds, Protonix, Bentyl and Zofran. Initial workup reviewed by ct hematologic labs are remarkable for elevated white count at 14.5. Discussed with hospitalist team Jerry who is coming down to see patient for admission for retractable abdominal pain. Patient had CTA 2 days ago with enteritis and has shows CT today with enteritis. Patient does feel improved but agrees to stay in the hospital. <Angel Burger MD - Last Filed: 03/12/24 15:04> Vital Signs: 03/11/24 20:07 03/11/24 20:12 03/11/24 20:31 Temperature 98.3 F Temperature Source Oral Pulse Rate 72 75 Pulse Rate [Left] 71 Respiratory Rate 18 Blood Pressure 147/98 H 109/74 L Blood Pressure [Right Arm] 147/98 H Blood Pressure Mean [Right Arm] 114 Blood Pressure Source Blood Pressure Position 02 Sat by Pulse Oximetry 100 100 100 Oxygen Delivery Method Room Air 03/11/24 21:00 03/11/24 21:41 03/11/24 22:00 Temperature Temperature Source Pulse Rate 65 75 66 Pulse Rate [Left] Respiratory Rate Blood Pressure 122/88 129/88 124/83 Blood Pressure [Right Arm] Blood Pressure Mean [Right Arm] Blood Pressure Source Blood Pressure Position 02 Sat by Pulse Oximetry 97 100 99 Oxygen Delivery Method 03/11/24 22:38 03/11/24 22:42 Temperature 97.9 F Temperature Source Oral Pulse Rate 71 Pulse Rate [Left] 71 Respiratory Rate 18 18 Blood Pressure 117/75 Blood Pressure [Right Arm] Blood Pressure Mean [Right Arm] Blood Pressure Source Automatic Cuff Blood Pressure Position Supine 02 Sat by Pulse Oximetry 98 Oxygen Delivery Method Room Air Room Air Lab Data Lab Results 03/11/24 20:27: WBC 14.5 H, RBC 4.66, Hgb 13.7, Hct 40.3, MCV 86.5, MCH 29.3, MCHC 33.9, RDW 14.3, Plt Count 313, MPV 8.3, Neut % (Auto) 71.5, Lymph % (Auto) 21.9, [place] % (Auto) 4.1, Eos % (Auto) 1.6, Baso % (Auto) 0.9, Neut # (Auto) 10.4 H, Lymph # (Auto) 3.2, [place] # (Auto) 0.6, Eos # (Auto) 0.2, Baso # (Auto) 0.1, ESR 16, PT 10.4, INR 0.92, APTT 27.2, Sodium 136, Potassium 3.8 D, Chloride 108 H, Carbon Dioxide 26, Anion Gap 5.8, BUN 15, Creatinine 0.60 D, Estimated Creat Clear 138, Estimated GFR 110, Est GFR ( Amer) 133 D, Glucose 91, Calcium 9.4, Total Bilirubin 0.5, AST 31, ALT 24 D, Alkaline Phosphatase 47, C-Reactive Protein 3.7, Total Protein 7.4, Albumin 4.5, Globulin 2.9, Albumin/Globulin Ratio 1.6, Lipase 107 03/11/24 20:45: Urine Color Cancelled, Urine Appearance Cancelled, Urine pH Cancelled, Ur Specific [place] Cancelled, Urine Protein Cancelled, Urine Glucose (UA) Cancelled, Urine Ketones Cancelled, Urine Blood Cancelled, Urine Nitrate Cancelled, Urine Bilirubin Cancelled, Urine Urobilinogen Cancelled, Ur Leukocyte Esterase Cancelled, Urine RBC Cancelled, Urine WBC Cancelled, Ur Squamous Epith Cells Cancelled, Ur Transition Epith Cell Cancelled, Ur Renal Epithelial Cell Cancelled, Calcium Carbonate Cryst Cancelled, Calcium Phosphate Cryst Cancelled, Calcium Oxalate Crystal Cancelled, Cystine Crystals Cancelled, Uric Acid Crystals Cancelled, Triple Phos Crystals Cancelled, Tyrosine Crystals Cancelled, Other Crystals Cancelled, Amorphous Sediment Cancelled, Other Sediment Cancelled, Urine Bacteria Cancelled, Fatty Casts Cancelled, Hyaline Casts Cancelled, Fine Granular Casts Cancelled, Coarse Granular Casts Cancelled, Waxy Casts Cancelled, RBC Casts Cancelled, WBC Casts Cancelled, Other Casts Cancelled, Urine Mucus Cancelled, Urine Trichomonas Cancelled, Urine Yeast Cancelled, Urine Sperm Cancelled 03/11/24 20:49: Stl Aeromonas (PCR) Not detected, Stl C. cayetanensis PCR Not detected, Stool Rotavirus (PCR) Not detected, Stl Adenov F 40/41 PCR Not detected, Stool Astrovirus (PCR) Not detected, Stool Campylobacter PCR Not detected, Stl C.difficile Tox PCR Not detected, Stool Cryptosporidium PCR Not detected, Stl E.coli Shiga Tox PCR Not detected, Stool E coli O157 PCR Not detected, Stl Enterotoxigenic E PCR Not detected, Stool EPEC (PCR) Not detected, Stool EAEC (PCR) Not detected, Stl E. histolytica PCR Not detected, Stool Giardia Lamblia PCR Not detected, Stool Salmonella PCR Not detected, Stool Sapovirus (PCR) Not detected, Stl P. shigelloides PCR Not detected, Stl Shigella/EIEC PCR Not detected, St Y.enterocolitica PCR Not detected, Stool Vibrio (PCR) Not detected, Stl Vibrio cholerae PCR Not detected, Stl Norovirus GI/GII PCR Not detected Orders (Tests/Meds): ED MEDICATIONS Discontinued Medications Generic Name Dose Route Start Last Admin Trade Name Freq PRN Reason Stop Dose Admin Acetaminophen 650 mg 03/11/24 22:55 Acetaminophen 325mg Tab PO 04/10/24 22:54 Q4HP PRN Fever or Mild Pain (1-3) Citalopram Hydrobromide 40 mg 03/12/24 09:00 Citalopram 40mg Tablet PO 04/11/24 08:59 DAILY HUNG Citalopram Hydrobromide 40 mg 03/12/24 21:00 Citalopram 40mg Tablet PO 04/11/24 20:59 HS HUNG Dicyclomine HCl 20 mg 03/11/24 20:21 03/11/24 20:45 Dicyclomine 10mg Capsule PO 03/11/24 20:22 20 mg ONCE ONE Administration Dicyclomine HCl 10 mg 03/12/24 09:00 03/12/24 08:51 Dicyclomine 10mg Capsule PO 04/11/24 08:59 10 mg TID HUNG Administration Hydromorphone HCl 0.5 mg 03/11/24 21:53 03/11/24 21:58 Hydromorphone 2mg/Ml Syringe IV 03/11/24 21:54 0.5 mg ONCE ONE Administration Hydromorphone HCl 2 mg 03/11/24 22:55 03/12/24 08:34 Hydromorphone 2mg/Ml Syringe IV 04/10/24 22:54 2 mg Q4HP PRN Administration Severe Pain (7-10) Lactated Ringer's 1,000 mls @ 75 mls/hr 03/11/24 23:00 03/11/24 23:31 Lactated Ringer's 1000 Ml Bag IV 04/10/24 22:59 75 mls/hr .[id number] HUNG Administration Magnesium Sulfate 2 gm in 50 mls @ 50 mls/hr 03/12/24 08:03 03/12/24 08:51 Magnesium Sulfate 2gm/50ml Premix IV 03/12/24 09:02 50 mls/hr ONCE ONE Administration Iopamidol 75 ml 03/11/24 21:41 03/11/24 21:42 Iopamidol-370 (76%);100ml Bottle IV 03/11/24 21:42 75 ml ONCE ONE Administration Ketorolac Tromethamine 15 mg 03/11/24 22:55 03/12/24 07:33 Ketorolac 30mg/Ml Vial IV 03/16/24 22:54 15 mg Q6HP PRN Administration Moderate Pain (4-6) Loratadine 10 mg 03/12/24 09:00 Loratadine 10mg Tablet PO 04/11/24 08:59 DAILY HUNG Loratadine 10 mg 03/12/24 21:00 Loratadine 10mg Tablet PO 04/11/24 20:59 HS HUNG Morphine Sulfate 2 mg 03/11/24 20:21 03/11/24 20:45 Morphine 2mg/Ml Syringe IV 03/11/24 20:22 2 mg ONCE ONE Administration Nadolol 10 mg 03/12/24 09:00 Nadolol 20mg Tablet PO 04/11/24 08:59 DAILY HUNG Nadolol 10 mg 03/12/24 21:00 Nadolol 20mg Tablet PO 04/11/24 20:59 HS HUNG Ondansetron HCl 4 mg 03/11/24 20:21 03/11/24 20:44 Ondansetron 4mg/2ml Vial IV 03/11/24 20:22 4 mg ONCE ONE Administration Ondansetron HCl 4 mg 03/11/24 22:55 03/12/24 08:34 Ondansetron 4mg/2ml Vial IV 04/10/24 22:54 4 mg Q8HP PRN Administration Nausea Pantoprazole Sodium 40 mg 03/11/24 20:21 03/11/24 20:45 Pantoprazole 40mg Vial IV 03/11/24 20:22 40 mg ONCE ONE Administration Pantoprazole Sodium 40 mg 03/12/24 21:00 Pantoprazole 40mg Tablet PO 04/11/24 20:59 HS HUNG Sodium Chloride 10 ml 03/11/24 20:21 Sodium Chloride 0.9% 10ml Vial IV 04/10/24 20:20 NEEDED PRN dilute protonix Sodium Chloride 10 ml 03/11/24 21:41 03/11/24 21:42 Sodium Chloride 0.9% 10ml Syr (Rad Only) IV 04/10/24 21:40 10 ml NEEDED PRN Administration Maintain IV Site Sodium Chloride 10 ml 03/11/24 22:55 Sodium Chloride 0.9% 10ml Flush Syringe IV 04/10/24 22:54 NEEDED PRN Maintain IV Site Sodium Chloride 10 ml 03/11/24 22:55 Sodium Chloride 0.9% 10ml Flush Syringe IV 04/10/24 22:54 NEEDED PRN Maintain IV Site ORDERS Category Date Time Status CT abdomen pelvis wo/w con Stat Cat Scan 03/11/24 20:22 Completed Activated Partial Thrombo Time Stat Lab 03/11/24 20:27 Completed CBC [Complete Blood Count Auto Diff] Stat Lab 03/11/24 20:27 Completed CRP [C-Reactive Protein] Routine Lab 03/11/24 20:27 Completed Comprehensive Metabolic Panel Stat Lab 03/11/24 20:27 Completed Diarrhea 23 Panel, PCR Routine Lab 03/11/24 20:49 Completed Erythrocyte Sedimentation Rate Routine Lab 03/11/24 20:27 Completed Lipase Stat Lab 03/11/24 20:27 Completed Prothrombin Time INR Stat Lab 03/11/24 20:27 Completed Urinalysis and Microscopic Routine Lab 03/11/24 21:04 Ordered Urine , HCG Qual. Routine Lab 03/11/24 21:04 Ordered ECG Data Tracing #1: I reviewed this ECG and interpreted as documented below: (Sinus rhythm 62 beats a minute without ST or T wave changes concerning for acute ischemia. [place] 157, QRS 94, QTc 416, incomplete right branch block morphology.) Medical Decision Narrative: Insert review patient is a 44-year-old female presenting to the emergency department for evaluation of abdominal pain and blood in stool. Patient is hemodynamically stable and nontoxic-appearing upon arrival, afebrile. Differential diagnosis includes abdominal pain, diverticulitis, IBS, GI bleed among others. Workup will be conducted with hematologic labs, specific imaging including a CT scan of abdomen and pelvis. Initial inventions include pain meds, Protonix, Bentyl and Zofran. Initial workup reviewed by me hematologic labs are remarkable for elevated white count at 14.5. Discussed with hospitalist team Jerry who is coming down to see patient for admission for retractable abdominal pain. Patient had CTA 2 days ago with enteritis. Independent interpretation of CT scan today demonstrates enteritis again. No other acute abnormality. Patient does feel improved, but pain still moderate to severe and agrees to stay in the hospital for intractable abdominal pain. I was consulted by the ANTWAN, and we discussed the complexity of the problems being addressed. I approved the treatment and management plan for this patient's care in the Emergency Department, thus performing a substantive portion of the medical decision making. Angel Burger MD Critical Care <Yara Coppola (ED), PRIVACY COMPLIANCE MANAGER - Last Filed: 03/11/24 22:33> Critical Care Time Critical Care Time: No
--- NOTE | 2024-03-11 20:21 | ECG_ITS ---
APPROVED REPORT Exam: Resting ECG HR:62 bpm ECG Measurements Heart Rate 62 AXES GA 157 P 75 QRSd 94 QRS 83 QT 411 T 71 QTc 416 Conclusion Sinus rhythm Incomplete right bundle branch block Electronically signed by : STEFAN MARTINEZ, 03/11/2024 22:51:14
--- NOTE | 2024-03-11 20:22 | CT_ITS ---
PROCEDURE INFORMATION: Exam: CT Abdomen And Pelvis Without And With Contrast Exam date and time: 03/11/2024 9:37 PM Age: 44 years old Clinical indication: Abdominal pain; Additional info: Abdominal pain and bloody stool TECHNIQUE: Imaging protocol: Computed tomography of the abdomen and pelvis without and with contrast. Radiation optimization: All CT scans at this facility use at least one of these dose optimization techniques: automated exposure control; mA and/or kV adjustment per patient size (includes targeted exams where dose is matched to clinical indication); or iterative reconstruction. Contrast material: ISOVUE; Contrast volume: 75 ml; Contrast route: INTRAVENOUS (IV); COMPARISON: CT ANGIO ABDOMEN PELVIS 03/09/2024 1:49 PM FINDINGS: Liver: Normal. No mass. Gallbladder and biliary ducts: Normal. No calcified stones. No ductal dilation. Pancreas: Normal. No ductal dilation. Spleen: Normal. No splenomegaly. Adrenal glands: Normal. No mass. Kidneys and ureters: Normal. No hydronephrosis. Stomach and bowel: Scattered sigmoid colonic diverticula without pericolonic fat stranding. No obstruction. No mucosal thickening. Appendix: No evidence of appendicitis. Intraperitoneal space: Unremarkable. No free air. No significant fluid collection. Vasculature: Unremarkable. No abdominal aortic aneurysm. Lymph nodes: Unremarkable. No enlarged lymph nodes. Urinary bladder: Unremarkable as visualized. Reproductive: Unremarkable as visualized. Bones/joints: Unremarkable. No acute fracture. Soft tissues: Unremarkable. IMPRESSION: 1. No acute findings. 2. Sigmoid colonic diverticulosis.
[2024-03-11 20:37] LABS: Basophils # 0.1 K/mm3 (0-0.2); Basophils % 0.9 % (0.1-2.0); Eosinophils # 0.2 K/mm3 (0.0-0.4); Eosinophils % 1.6 % (0.1-12.0); Hematocrit 40.3 % (37.0-47.0); Hemoglobin 13.7 g/dL (12.2-16.2); Lymphocytes # 3.2 K/mm3 (0.7-4.5); Lymphocytes % 21.9 % (10-50); Mean Corpuscular HGB Conc 33.9 g/dL (31.8-35.4); Mean Corpuscular Hemoglobin 29.3 pg (27.0-31.2); Mean Corpuscular Volume 86.5 fl (81-99); Mean Platelet Volume 8.3 fl (7.4-10.4); Monocytes # 0.6 K/mm3 (0.1-1.0); Monocytes % 4.1 % (1.7-9.3); Neutrophils # 10.4 K/mm3 (1.8-7.8); Neutrophils % 71.5 % (37.0-80.0); Platelet Count 313 K/mm3 (142-424); Red Blood Count 4.66 M/mm3 (4.20-5.40); Red Cell Distribution Width 14.3 % (11.5-17.5); White Blood Count 14.5 K/mm3 (4.8-10.8)
[2024-03-11 20:44] LABS: INR 0.92 (0.9-1.1); Prothrombin Time 10.4 seconds (10.1-12.5)
[2024-03-11] MEDS: ONDANSETRON 4MG/2ML VIAL 4 MG IV (20:44)
[2024-03-11] MEDS: PANTOPRAZOLE 40MG VIAL 40 MG IV (20:45)
[2024-03-11] MEDS: DICYCLOMINE 10MG CAPSULE 20 MG PO (20:45)
[2024-03-11] MEDS: MORPHINE 2MG/ML SYRINGE 2 MG IV (20:45)
[2024-03-11 20:47] LABS: Activated Partial Thrombo Time 27.2 seconds (22.8-30.6); Alanine Aminotransferase 24 U/L (12-78); Albumin Level 4.5 g/dl (3.5-5.0); Albumin/Globulin Ratio 1.6 (1.1-1.8); Alkaline Phosphatase 47 U/L (38-126); Anion Gap 5.8 mEq/L (5-15); Aspartate Amino Transferase 31 U/L (14-36); Bilirubin,Total 0.5 mg/dl (0.2-1.3); Blood Urea Nitrogen 15 mg/dl (7-17); Calcium 9.4 mg/dl (8.4-10.2); Carbon Dioxide 26 mmol/L (22.0-30.0); Chloride 108 mmol/L (98-107); Creatinine Clearance Estimated 138 mL/min (50-200); Estimated Glomerular Filt Rate 110 ml/min (>60); GFR (African American) 133 ML/MIN (>60); Globulin 2.9 g/dL (1.3-3.2); Glucose 91 mg/dl (74-100); Lipase 107 U/L (23-300); Potassium 3.8 mmoL/L (3.5-5.1); Sodium 136 mmol/L (136-145); Total Protein,Serum 7.4 g/dl (6.3-8.2)
[2024-03-11 20:51] LABS: C-Reactive Protein 3.7 mg/L (0-4)
[2024-03-11 21:05] LABS: Erythrocyte Sedimentation Rate 16 mm/hr (0-20)
[2024-03-11 21:07] LABS: Adenovirus F 40/41, stool Not Detected (NotDetected); Astrovirus Not Detected (NotDetected); Campylobacter Not Detected (NotDetected); Clostridium Difficile A/B, PCR Not Detected (NotDetected); Cryptosporidium Not Detected (NotDetected); Cyclospora Cayetanesis Not Detected (NotDetected); Entamoeba histolytica Not Detected (NotDetected); Enteroaggregative E coli Not Detected (NotDetected); Enteropathogenic E coli Not Detected (NotDetected); Enterotoxigenic E coli Not Detected (NotDetected); Giardia lamblia Not Detected (NotDetected); Norovirus Not Detected (NotDetected); Plesimonas Shigalloides, PCR Not Detected (NotDetected); Rotavirus A Not Detected (NotDetected); Salmonella, PCR Not Detected (NotDetected); Sapovirus Not Detected (NotDetected); Shiga-like toxin E coli Not Detected (NotDetected); Shigella Enterovasive E coli Not Detected (NotDetected); Vibrio Cholerae Not Detected (NotDetected); Vibrio, PCR Not Detected (NotDetected); Yersinia Entercolitica, PCR Not Detected (NotDetected)
[2024-03-11] MEDS: SODIUM CHLORIDE 0.9% 10ML SYR (RAD ONLY) 10 ML IV (21:42)
[2024-03-11] MEDS: IOPAMIDOL-370 (76%);100ML BOTTLE 75 ML IV (21:42)
[2024-03-11] MEDS: HYDROMORPHONE 2MG/ML SYRINGE 0.5 MG IV (21:58)
--- NOTE | 2024-03-11 22:54 | PC.NURSE ---
Patient arrived to floor via wheelchair from Ed at 22:53.
--- NOTE | 2024-03-11 23:17 | P.HP_ITS ---
History of Present Illness *Admission Date: 03/11/24 *Reason for visit:: Nonresolving abdominal pain with blood in stool, *History of present illness: This 44-year-old female has been seen in the emergency room 2 days ago for increased abdominal pain, she was treated and released at that point in time but has continued with symptoms now having bright red blood in the toilet. Her abdominal pain is increased that she describes center lower abdomen and right upper quadrant pain.. She was noted to have a small right-sided kidney stone but this is not the pain she was having and believe she has passed that stone.. In looking at records has had irritation/IBS symptoms since 2019, also had hepatitis C which has been treated, denies any present drug use. Patient is noted that she does smoke a pack a day but denies any excessive alcohol use. Past medical history includes complete hysterectomy with oophorectomy, but she is not on any type of hormone replacement. She had taken it in the past but just stopped using it more than a year ago. ,Patient does not have a fever but white count slightly elevated 14,000. Talking with the ER provider examining old records present labs and examination showing fairly significant abdominal discomfort do agree that we will admit do GI consult at this time and for tonight to keep on just clear liquids or he with pain control. Due to negative results from labs will not start on antibiotics tonight. [facility] Disclaimer: The information contained in this section may have been updated after the patient was seen, as this information can be updated by other users. Medical History (Updated 03/11/24 @ 23:44 by Jerry Gallegos APRN) Internal hemorrhoid Hx of hepatitis C Carpal tunnel syndrome on right SVT (supraventricular tachycardia) PAC (premature atrial contraction) Palpitations Urinary tract infection Kidney stone IBS (irritable bowel syndrome) Depression Hyperlipidemia Anxiety Surgical History (Updated 03/11/24 @ 23:36 by Jerry Gallegos APRN) History of tonsillectomy and adenoidectomy History of hysterectomy Social History (Updated 03/11/24 @ 23:22 by Isabelle Villegas RN) Smoking Status: Current every day smoker tobacco type: cigarettes packs per day: 1 second hand exposure: Yes alcohol intake: never 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) current occupational status: other Travel in the last 8 weeks: None household members: family housing: house 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[employer] current occupational exposures/hazards: No caffeine: Yes Other Medical History Have you received the Flu Vaccine for this season: No Have you received the Pneumonia Vaccine: No PFSH Medical History (Updated 03/11/24 @ 23:44 by Jerry Gallegos APRN) Internal hemorrhoid Hx of hepatitis C Carpal tunnel syndrome on right SVT (supraventricular tachycardia) PAC (premature atrial contraction) Palpitations Urinary tract infection Kidney stone IBS (irritable bowel syndrome) Depression Hyperlipidemia Anxiety Surgical History (Updated 03/11/24 @ 23:36 by Jerry Gallegos APRN) History of tonsillectomy and adenoidectomy History of hysterectomy Social History (Updated 03/11/24 @ 23:22 by Isabelle Villegas RN) Smoking Status: Current every day smoker tobacco type: cigarettes packs per day: 1 second hand exposure: Yes alcohol intake: never 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) current occupational status: other Travel in the last 8 weeks: None household members: family housing: house 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 Has a friend at bedside with her. Noted in her history over the last year has dropped 20 pounds Constitutional Constitutional: Reports as per HPI, Reports poor appetite and Reports weight loss (Has lost 20 pounds in the last year) Eyes Eyes: Reports as per HPI ENT Ears, Nose, Mouth, and Throat: Reports as per HPI Comments: She notes that she has 1 upper left tooth with cavity *Cardiovascular Cardiovascular: Reports syncope (Patient feels like she might faint sometimes when standing up ) Comments: Denies chest pain or shortness of breath *Respiratory Respiratory: Reports as per HPI Comments: Patient is a pack-a-day smoker, she denies any cough at this time *Gastrointestinal Gastrointestinal: Reports abdominal pain, Reports change in bowel habits, Reports change in stool character (Now having bloody stool bright red), Reports hematochezia and Reports nausea *Genitourinary Genitourinary: Reports as per HPI Comments: Patient notes a history of full hysterectomy with oophorectomy not on hormone replacement denies any vaginal discharge *Musculoskeletal Comments: Denies any issue with muscles or limbs or being able to ambulate Integumentary/Breasts Skin/Breast: Reports system reviewed and no additional complaints, except as documented *Neurologic Neurologic: Reports as per HPI and Reports syncope (Patient feels like she might faint sometimes when standing up ) Psychiatric Psychiatric: Reports as per HPI, Reports anxiety and Reports depression Comments: History of anxiety/depression per past medical history and notes Endocrine Endocrine: Reports as per HPI Hematologic/Lymphatic Hematologic/Lymphatic: Reports as per HPI Allergic/Immunologic Allergic/Immunologic: Reports as per HPI Meds Home Medications and Allergies Home Medications ?Medication ?Instructions ?Recorded ?Confirmed ?Type cetirizine 10 mg tablet 10 mg PO HS 11/01/23 03/12/24 History escitalopram oxalate 20 mg tablet 20 mg PO HS 11/01/23 03/12/24 History nadolol 20 mg tablet 10 mg (1/2 x 20 mg) PO DAILY #30 01/10/24 03/11/24 Rx tabs dicyclomine 10 mg capsule 10 mg PO TID PRN Abdominal 03/12/24 Rx Discomfort 30 days #90 caps famotidine 40 mg tablet 40 mg PO HS 03/12/24 03/12/24 History New Prescriptions to Start Prescriptions: Jaden Jesus Allergies Allergy/AdvReac Type Severity Reaction Status Date / Time cephalexin [CEPHALEXIN] Allergy Severe SWELLS Verified 02/10/24 10:59 THROAT Fish Containing Products Allergy Unknown I-HIVES Verified 02/10/24 10:59 [FISH CONTAINING PRODUCTS] codeine [CODEINE] AdvReac Unknown MUSCLE Verified 02/10/24 10:59 SPASMS Exam Data for Last 24 hours Vital signs and Labs for Last 24 Hours: Temp Pulse Resp BP Pulse Ox O2 Del Method 99.0 F 63 16 122/75 99 Room Air 03/11/24 23:07 03/11/24 23:07 03/11/24 23:07 03/11/24 23:07 03/11/24 23:07 03/11/24 23:07 Laboratory Results - last 24 hr 03/11/24 20:27: WBC 14.5 H, RBC 4.66, Hgb 13.7, Hct 40.3, MCV 86.5, MCH 29.3, MCHC 33.9, RDW 14.3, Plt Count 313, MPV 8.3, Neut % (Auto) 71.5, Lymph % (Auto) 21.9, [place] % (Auto) 4.1, Eos % (Auto) 1.6, Baso % (Auto) 0.9, Neut # (Auto) 10.4 H, Lymph # (Auto) 3.2, [place] # (Auto) 0.6, Eos # (Auto) 0.2, Baso # (Auto) 0.1, ESR 16, PT 10.4, INR 0.92, APTT 27.2, Sodium 136, Potassium 3.8 D, Chloride 108 H, Carbon Dioxide 26, Anion Gap 5.8, BUN 15, Creatinine 0.60 D, Estimated Creat Clear 138, Estimated GFR 110, Est GFR ( Amer) 133 D, Glucose 91, Calcium 9.4, Total Bilirubin 0.5, AST 31, ALT 24 D, Alkaline Phosphatase 47, C- Reactive Protein 3.7, Total Protein 7.4, Albumin 4.5, Globulin 2.9, Albumin/Globulin Ratio 1.6, Lipase 107 03/11/24 20:45: Urine Color Cancelled, Urine Appearance Cancelled, Urine pH Cancelled, Ur Specific [place] Cancelled, Urine Protein Cancelled, Urine Glucose (UA) Cancelled, Urine Ketones Cancelled, Urine Blood Cancelled, Urine Nitrate Cancelled, Urine Bilirubin Cancelled, Urine Urobilinogen Cancelled, Ur Leukocyte Esterase Cancelled, Urine RBC Cancelled, Urine WBC Cancelled, Ur Squamous Epith Cells Cancelled, Ur Transition Epith Cell Cancelled, Ur Renal Epithelial Cell Cancelled, Calcium Carbonate Cryst Cancelled, Calcium Phosphate Cryst Cancelled, Calcium Oxalate Crystal Cancelled, Cystine Crystals Cancelled, Uric Acid Crystals Cancelled, Triple Phos Crystals Cancelled, Tyrosine Crystals Cancelled, Other Crystals Cancelled, Amorphous Sediment Cancelled, Other Sediment Cancelled, Urine Bacteria Cancelled, Fatty Casts Cancelled, Hyaline Casts Cancelled, Fine Granular Casts Cancelled, Coarse Granular Casts Cancelled, Waxy Casts Cancelled, RBC Casts Cancelled, WBC Casts Cancelled, Other Casts Cancelled, Urine Mucus Cancelled, Urine Trichomonas Cancelled, Urine Yeast Cancelled, Urine Sperm Cancelled 03/11/24 20:49: Stl Aeromonas (PCR) Not detected, Stl C. cayetanensis PCR Not detected, Stool Rotavirus (PCR) Not detected, Stl Adenov F 40/41 PCR Not detected, Stool Astrovirus (PCR) Not detected, Stool Campylobacter PCR Not detected, Stl C.difficile Tox PCR Not detected, Stool Cryptosporidium PCR Not detected, Stl E.coli Shiga Tox PCR Not detected, Stool E coli O157 PCR Not detected, Stl Enterotoxigenic E PCR Not detected, Stool EPEC (PCR) Not detected, Stool EAEC (PCR) Not detected, Stl E. histolytica PCR Not detected, Stool Giardia Lamblia PCR Not detected, Stool Salmonella PCR Not detected, Stool Sapovirus (PCR) Not detected, Stl P. shigelloides PCR Not detected, Stl Shigella/EIEC PCR Not detected, St Y.enterocolitica PCR Not detected, Stool Vibrio (PCR) Not detected, Stl Vibrio cholerae PCR Not detected, Stl Norovirus GI/GII PCR Not detected I & O for Last 24 hours: Intake & Output 03/08/24 03/09/24 03/10/24 03/11/24 23:59 23:59 23:59 23:59 Weight 74.253 kg Radiology Reports for the Last 24 Hours: CT scan of abdomen showing some bowel wall thickening that may indicate colitis versus enteritis Constitutional Constitutional: mild distress Comments: Patient is able to stand move without any assistance able to lie down on stretcher and sit up without assistance *Routine HEENT Exam Head: Present normocephalic and atraumatic Eye: Present EOMI and PERRL ENT: Present mucous membranes moist Comments: Has 1 cavity and upper left molar *Routine Neck Exam Neck: Present supple and full ROM Comments: No tenderness of neck, enlarged thyroid or lymph nodes palpated Routine Chest/Breast/Axilla Exam Comments: No tenderness to chest wall *Routine Respiratory Exam Respiratory: Present CTA bilaterally, normal respiratory effort, able to speak in complete sentences and symmetric chest movement Comments: Exam found no respiratory issues *Routine Cardiovascular Exam Cardiovascular: Present RRR, Normal S1 and Normal S2 Comments: No lower extremity edema found, *Routine Abdominal Exam Abdominal: Present soft, normoactive bowel sounds and tenderness Comments: Examination of abdomen limited to light palpation due to discomfort greatest in right upper quadrant and epigastric area also mid pubic area *Routine Rectal Exam Rectal:: deferred *Routine Genitalia Exam Genitalia:: deferred *Routine Extremities Exam Comments: Normal extremity exam patient able to stand walk full range of motion in all joints and limbs Routine Back/Spine/Pelvis Exam Back/Spine: Present full ROM Comments: Patient shows no back pain able to move flex and twist without difficulty *Routine Skin Exam Skin: Present intact Comments: [place] warm and dry no lesions or bruising or petechiae found *Routine Neurological Exam Neurological: Present alert, oriented X3, CN II-XII intact, moving all extremities and normal tone Routine Psychiatric Exam Psychiatric: Present normal affect, normal thought process, cooperative, good insight and good judgment Comments: Found patient to be quite pleasant for feeling ill and having nausea abdominal pain she made a very easy to be able to do the complete exam H&P: Result Impressions 1. Abdominal pain with nausea: Per history symptoms and exam this could be colitis/enteritis, now with increased bright red blood into stool. Imaging and Cardiology CT scan - abdomen: Additional comments: CTA of abdomen and pelvis does find some bowel wall thickening, Assessment and Plan *Assessment and plan (1) Enteritis: Status: Acute Category: Medical Code(s): K52.9 - Noninfective gastroenteritis and colitis, unspecified (2) Intractable abdominal pain: Status: Acute Category: Medical Code(s): R10.9 - Unspecified abdominal pain (3) IBS (irritable bowel syndrome): Status: Acute Category: Medical Code(s): K58.9 - Irritable bowel syndrome, unspecified (4) Epigastric pain: Status: Acute Category: Medical Code(s): R10.13 - Epigastric pain (5) Bloody diarrhea: Status: Acute Category: Medical Code(s): R19.7 - Diarrhea, unspecified (6) Leukocytosis, unspecified: Status: Acute Category: Medical Code(s): D72.829 - Elevated white blood cell count, unspecified (7) Nausea: Status: Acute Category: Medical Code(s): R11.0 - Nausea (8) H/O bilateral oophorectomy: Status: Acute Category: Surgical Code(s): Z90.722 - Acquired absence of ovaries, bilateral (9) Kidney stone: Status: Acute Category: Medical Code(s): N20.0 - Calculus of kidney Plan 44-year-old female with history of IBS, presented with intractable abdominal pain and concern for enteritis. Case discussed with ER physician, request admission for further management including IV fluids. Medicine agreed to admit for further management. Patient initiated on clear liquid diet. Problems addressed as follows: 1,2,3.4,5,7: Patient has abdominal pain with having bright red blood in the toilet anytime she goes to the bathroom.. Does have a history per records since 2019 of having some IBS symptoms, presently on medication for the IBS. She did at one time have internal hemorrhoids that were repaired a year ago. She has become ill once again with this abdominal pain., Was noted on ER visit of that there was a kidney stone on the right that she believes she has passed from 2 days ago but the problems has continued and now having blood every time she tries to use the toilet. Reviewing her labs find that her white count is elevated., But stool panel has come back negative for everything checked. Patient had a history of hepatitis C that was treated in 2020, also noting that she had female issues being a hysterectomy at about age 27 and then having both ovaries removed., Patient was on hormone replacement but stopped taking it several months ago. So GI consult will be done to evaluate whether this irritable bowel/enteritis is becoming worse. Unable to determine infectious disease origin at this time 6, nausea with some vomiting. Patient noted that Zofran as needed she is also on 40 of Pepcid every day . This has reached a level that she is unable to work, and feels worse upon standing with some dizziness. 7. Right side kidney stone, she was seen in the ER on 03/09, for abdominal pain but also right sided flank pain right-sided flank pain has resolved. She believes she did pass the small stone 8. Patient is a pack-a-day smoker: There is no respiratory issues at this point in time., Teaching done with her that this does keep her immune system up as in her old records it does list autoimmune disease on one of the office visits., That this could continue to flareup her irritable bowel syndrome. Rounded on patient after nurse practitioner. Personally examined and i nterviewed patient. Agree with exam findings and care plan as documented. Patient feeling a bit better by the time of my evaluation. Requesting something more to eat. Requesting to go smoke. Reviewed her labs, still has white count of 12.7. Kidney function normal with BUN 10, creatinine 0.7. Minor electrolyte disturbances with magnesium 1.6, potassium 3.6, sodium 134. No further bloody stools. Had small formed stool overnight. No nausea this morning. Repeat labs ordered for the morning including CBC, CMP, magnesium. Per my review of CT of abdomen, has bowel gas throughout colon. No significant inflammation of colon wall. Mild enteritis. No inflammation concerning for diverticulitis.
[2024-03-11] MEDS: KETOROLAC 30MG/ML VIAL 15 MG IV (23:30)
[2024-03-11] MEDS: LACTATED RINGERS 1000ML 1,000 ML 75 ML IV (23:31)
[2024-03-12] MEDS: HYDROMORPHONE 2MG/ML SYRINGE 2 MG IV ×3 (00:13→08:34)
[2024-03-12 04:00] VITALS: BP 119/75; PULSE 57; RESP 16; TEMP 36.6; O2SAT 98; BMI 25.7
[2024-03-12] MEDS: ONDANSETRON 4MG/2ML VIAL 4 MG IV ×2 (04:10→08:34)
--- NOTE | 2024-03-12 05:13 | PC.NURSE ---
Mrs Zimmerman was newly admitted this shift on behalf of intractable abdominal pain. She also reported that she has been having blood-only stools. She has a past medical history of irritable bowel syndrome, treating hepatitis C, anxiety/depression, SVT/PAC heart rhythms, kidney stones, and hyperlipidemia (see summary). She has been ambulating independently to the bathroom with no issues this shift; gait is satisfactory. She also self-turns in bed. She has reported severe abdominal pain (level 6 to level 7) through this shift, which has been treated once with Toradol and twice with Dilautid per JUL; relief has been reported. Patient stated that moving around helps her pain as well. Upon auscultation, her lung sounds were clear, bowel sounds were very active, and S1/S2 heart sounds could be heard. WBC count (14.5) and chloride (108) labs were found to be elevated this shift. She is alert and oriented x4. She was observed to have eyes closed, respirations even and unlabored on room air, and no apparent distress partially through the night. Her has remained at bedside. Patient also reported having some nausea once this shift; she was given zofran per JUL. Patient reported having relief of her nausea after receiving. She currently has LR infusing at 75 mL/hr. Patient is currently on a clear liquid diet. Vital signs have remained relatively stable this shift. Home medication reconciliation was completed with admission. At this time, patient is awake and resting in bed, using her personal phone. No acute changes noted thus far. Call light within reach.
[2024-03-12] MEDS: KETOROLAC 30MG/ML VIAL 15 MG IV (07:33)
[2024-03-12 07:36] LABS: Basophils # 0.1 K/mm3 (0-0.2); Eosinophils # 0.3 K/mm3 (0.0-0.4)
[2024-03-12 07:39] LABS: Basophils % 1.1 % (0.1-2.0); Hematocrit 36.8 % (37.0-47.0); Lymphocytes # 4.5 K/mm3 (0.7-4.5); Lymphocytes % 35.4 % (10-50); Mean Corpuscular HGB Conc 33.4 g/dL (31.8-35.4); Mean Corpuscular Hemoglobin 29.5 pg (27.0-31.2); Mean Corpuscular Volume 88.3 fl (81-99); Mean Platelet Volume 8.3 fl (7.4-10.4); Monocytes # 0.5 K/mm3 (0.1-1.0); Monocytes % 3.9 % (1.7-9.3); Neutrophils # 7.3 K/mm3 (1.8-7.8); Neutrophils % 57.7 % (37.0-80.0); Platelet Count 281 K/mm3 (142-424); Red Blood Count 4.16 M/mm3 (4.20-5.40); Red Cell Distribution Width 14.2 % (11.5-17.5); White Blood Count 12.7 K/mm3 (4.8-10.8)
[2024-03-12 07:40] LABS: Alanine Aminotransferase 27 U/L (12-78); Albumin/Globulin Ratio 1.7 (1.1-1.8); Alkaline Phosphatase 41 U/L (38-126); Anion Gap 4.6 mEq/L (5-15); Aspartate Amino Transferase 32 U/L (14-36); Bilirubin,Total 0.5 mg/dl (0.2-1.3); Blood Urea Nitrogen 10 mg/dl (7-17); Calcium 8.9 mg/dl (8.4-10.2); Carbon Dioxide 25 mmol/L (22.0-30.0); Chloride 108 mmol/L (98-107); Creatinine Clearance Estimated 123 mL/min (50-200); Estimated Glomerular Filt Rate 92 ml/min (>60); GFR (African American) 111 ML/MIN (>60); Globulin 2.4 g/dL (1.3-3.2); Glucose 126 mg/dl (74-100); Lactic Acid 1.9 mmol/L (0.7-2.1); Magnesium 1.6 mg/dl (1.6-2.3); Potassium 3.6 mmoL/L (3.5-5.1); Sodium 134 mmol/L (136-145); Total Protein,Serum 6.4 g/dl (6.3-8.2)
[2024-03-12 07:46] LABS: Hemoglobin 12.3 g/dL (12.2-16.2)
[2024-03-12 08:00] VITALS: BP 113/65; PULSE 62; RESP 20; TEMP 36.7; O2SAT 98; O2SAT 99
--- NOTE | 2024-03-12 08:39 | HMH.PHAINT1 ---
Pharmacy Intervention Comments: MEDICATION RECONCILIATION COMPLETED ON PATIENT USING EXTERNAL FILL HISTORY FROM PHARMACY. PATIENT STATES THAT SHE TAKES ALL OF HER HOME MEDICATIONS AT NIGHT. -PAT REDMOND, JERRYD
--- NOTE | 2024-03-12 08:47 | P.PN_ITS ---
Subjective *Date: 03/12/24 *Time: 08:47 Medical Exam Vital signs and Labs for Last 24 Hours: Vital Signs Temp Pulse Pulse Resp BP BP Pulse Ox 03/12/24 08:00 98.1 F 62 20 113/65 99 03/12/24 06:40 03/12/24 05:00 03/12/24 04:00 97.9 F 57 L 16 119/75 98 03/12/24 03:00 03/12/24 01:00 03/11/24 23:07 99.0 F 63 16 122/75 99 03/11/24 23:00 03/11/24 22:42 97.9 F 71 18 117/75 03/11/24 22:38 71 18 98 03/11/24 22:00 66 124/83 99 03/11/24 21:41 75 129/88 100 03/11/24 21:00 65 122/88 97 03/11/24 20:31 75 109/74 L 100 03/11/24 20:12 72 147/98 H 100 03/11/24 20:07 98.3 F 71 18 147/98 H 100 O2 Del Method 03/12/24 08:00 Room Air 03/12/24 06:40 Room Air 03/12/24 05:00 Room Air 03/12/24 04:00 Room Air 03/12/24 03:00 Room Air 03/12/24 01:00 Room Air 03/11/24 23:07 Room Air 03/11/24 23:00 Room Air 03/11/24 22:42 Room Air 03/11/24 22:38 Room Air 03/11/24 22:00 03/11/24 21:41 03/11/24 21:00 03/11/24 20:31 03/11/24 20:12 03/11/24 20:07 Room Air Intake and Output 03/11/24 03/12/24 03/12/24 23:59 07:59 15:59 Intake Total 222 / 222 Output Total 0 / 0 Balance 222 / 222 Intake: Intake, Oral Amount 222 / 222 Output: Output, Urine Amount 0 / 0 Other: Number of Unmeasured Voids 1 Number of Bowel Movements 1 Weight 74.253 kg 74.253 kg Patient Weight 03/12/24 23:59 Weight 74.253 kg Laboratory Results - last 24 hr 03/11/24 20:27: WBC 14.5 H, RBC 4.66, Hgb 13.7, Hct 40.3, MCV 86.5, MCH 29.3, MCHC 33.9, RDW 14.3, Plt Count 313, MPV 8.3, Neut % (Auto) 71.5, Lymph % (Auto) 21.9, [place] % (Auto) 4.1, Eos % (Auto) 1.6, Baso % (Auto) 0.9, Neut # (Auto) 10.4 H, Lymph # (Auto) 3.2, [place] # (Auto) 0.6, Eos # (Auto) 0.2, Baso # (Auto) 0.1, ESR 16, PT 10.4, INR 0.92, APTT 27.2, Sodium 136, Potassium 3.8 D, Chloride 108 H, Carbon Dioxide 26, Anion Gap 5.8, BUN 15, Creatinine 0.60 D, Estimated Creat Clear 138, Estimated GFR 110, Est GFR ( Amer) 133 D, Glucose 91, Calcium 9.4, Total Bilirubin 0.5, AST 31, ALT 24 D, Alkaline Phosphatase 47, C-Reactive Protein 3.7, Total Protein 7.4, Albumin 4.5, Globulin 2.9, Albumin/Globulin Ratio 1.6, Lipase 107 03/11/24 20:45: Urine Color Cancelled, Urine Appearance Cancelled, Urine pH Cancelled, Ur Specific [place] Cancelled, Urine Protein Cancelled, Urine Glucose (UA) Cancelled, Urine Ketones Cancelled, Urine Blood Cancelled, Urine Nitrate Cancelled, Urine Bilirubin Cancelled, Urine Urobilinogen Cancelled, Ur Leukocyte Esterase Cancelled, Urine RBC Cancelled, Urine WBC Cancelled, Ur Squamous Epith Cells Cancelled, Ur Transition Epith Cell Cancelled, Ur Renal Epithelial Cell Cancelled, Calcium Carbonate Cryst Cancelled, Calcium Phosphate Cryst Cancelled, Calcium Oxalate Crystal Cancelled, Cystine Crystals Cancelled, Uric Acid Crystals Cancelled, Triple Phos Crystals Cancelled, Tyrosine Crystals Cancelled, Other Crystals Cancelled, Amorphous Sediment Cancelled, Other Sediment Cancelled, Urine Bacteria Cancelled, Fatty Casts Cancelled, Hyaline Casts Cancelled, Fine Granular Casts Cancelled, Coarse Granular Casts Cancelled, Waxy Casts Cancelled, RBC Casts Cancelled, WBC Casts Cancelled, Other Casts Cancelled, Urine Mucus Cancelled, Urine Trichomonas Cancelled, Urine Yeast Cancelled, Urine Sperm Cancelled 03/11/24 20:49: Stl Aeromonas (PCR) Not detected, Stl C. cayetanensis PCR Not detected, Stool Rotavirus (PCR) Not detected, Stl Adenov F 40/41 PCR Not detected, Stool Astrovirus (PCR) Not detected, Stool Campylobacter PCR Not detected, Stl C.difficile Tox PCR Not detected, Stool Cryptosporidium PCR Not detected, Stl E.coli Shiga Tox PCR Not detected, Stool E coli O157 PCR Not detected, Stl Enterotoxigenic E PCR Not detected, Stool EPEC (PCR) Not detected, Stool EAEC (PCR) Not detected, Stl E. histolytica PCR Not detected, Stool Giardia Lamblia PCR Not detected, Stool Salmonella PCR Not detected, Stool Sapovirus (PCR) Not detected, Stl P. shigelloides PCR Not detected, Stl Shigella /EIEC PCR Not detected, St Y.enterocolitica PCR Not detected, Stool Vibrio (PCR) Not detected, Stl Vibrio cholerae PCR Not detected, Stl Norovirus GI/GII PCR Not detected 03/12/24 07:13: WBC 12.7 H, RBC 4.16 L, Hgb 12.3 D, Hct 36.8 L, MCV 88.3, MCH 29.5, MCHC 33.4, RDW 14.2, Plt Count 281, MPV 8.3, Neut % (Auto) 57.7, Lymph % (Auto) 35.4, [place] % (Auto) 3.9, Eos % (Auto) 2.0, Baso % (Auto) 1.1, Neut # (Auto) 7.3, Lymph # (Auto) 4.5, [place] # (Auto) 0.5, Eos # (Auto) 0.3, Baso # (Aut o) 0.1, Sodium 134 L, Potassium 3.6, Chloride 108 H, Carbon Dioxide 25, Anion Gap 4.6 L, BUN 10 D, Creatinine 0.70, Estimated Creat Clear 123, Estimated GFR 92, Est GFR ( Amer) 111, Glucose 126 H D, Lactate 1.9, Calcium 8.9, Magnesium 1.6, Total Bilirubin 0.5, AST 32, ALT 27, Alkaline Phosphatase 41, Total Protein 6.4, Albumin 4.0 D, Globulin 2.4, Albumin/Globulin Ratio 1.7 I & O for Labs for Last 24 Hours: Intake & Output 03/09/24 03/10/24 03/11/24 03/12/24 23:59 23:59 23:59 23:59 Intake Total 222 / 222 Output Total 0 / 0 Balance 222 / 222 Weight 74.253 kg 74.253 kg
[2024-03-12] MEDS: DICYCLOMINE 10MG CAPSULE 10 MG PO (08:51)
[2024-03-12] MEDS: MAGNESIUM SULFATE IN WATER 2 GM/50 ML PIGGYBACK IV (08:51)
--- NOTE | 2024-03-12 09:59 | P.DS_ITS ---
General Admission date:: 03/11/24 Discharge date: 03/12/24 HPI HPI HPI: This 44-year-old female has been seen in the emergency room 2 days ago for increased abdominal pain, she was treated and released at that point in time but has continued with symptoms now having bright red blood in the toilet. Her abdominal pain is increased that she describes center lower abdomen and right upper quadrant pain.. She was noted to have a small right-sided kidney stone but this is not the pain she was having and believe she has passed that stone.. In looking at records has had irritation/IBS symptoms since 2019, also had hepatitis C which has been treated, denies any present drug use. Patient is noted that she does smoke a pack a day but denies any excessive alcohol use. Past medical history includes complete hysterectomy with oophorectomy, but she is not on any type of hormone replacement. She had taken it in the past but just stopped using it more than a year ago. ,Patient does not have a fever but white count slightly elevated 14,000. Talking with the ER provider examining old records present labs and examination showing fairly significant abdominal discomfort do agree that we will admit do GI consult at this time and for tonight to keep on just clear liquids or he with pain control. Due to negative results from labs will not start on antibiotics tonight. Hospital Course Hospital Course Hospital Course: 44-year-old female admitted for abdominal pain and concern for enteritis. Mild leukocytosis noted at admission. Overnight did well with clear liquid diet. If some improvement in abdominal pain by morning. States Bentyl helped the most. On morning rounds, patient anxious and stating she wanted to go outside to smoke. Informed her we are non-smoking facility and offered a nicotine patch. She refused the patch. Informed her that it was not in her best interest to go outside and smoke. Asked if I could get her something to eat to see if that would help with her anxiety or try other medication. She stated she is really wanted to go smoke. I asked her to please not go smoke. Provided with a ham and cheese sandwich at her request. Tolerated it well with no nausea or vomiting. She proceeded to elope from the floor on her own recognizance. Decision made to discharge as patient was feeling well enough to ambulate independently and tolerate p.o. intake. No further nausea or vomiting. Sent home with prescription for Bentyl. Encouraged to follow-up with GI in the near future for further management of her IBS versus enteritis. Hemodynamically stable. On room air. Kidney function and electrolytes normal on morning labs. Exam Data for Last 24 hours Vital signs and Labs for Last 24 Hours: Temp Pulse Resp BP Pulse Ox O2 Del Method 98.1 F 62 20 113/65 98 Room Air 03/12/24 08:00 03/12/24 08:00 03/12/24 08:00 03/12/24 08:00 03/12/24 08:00 03/12/24 09:00 Laboratory Results - last 24 hr 03/11/24 20:27: WBC 14.5 H, RBC 4.66, Hgb 13.7, Hct 40.3, MCV 86.5, MCH 29.3, MCHC 33.9, RDW 14.3, Plt Count 313, MPV 8.3, Neut % (Auto) 71.5, Lymph % (Auto) 21.9, [place] % (Auto) 4.1, Eos % (Auto) 1.6, Baso % (Auto) 0.9, Neut # (Auto) 10.4 H, Lymph # (Auto) 3.2, [place] # (Auto) 0.6, Eos # (Auto) 0.2, Baso # (Auto) 0.1, ESR 16, PT 10.4, INR 0.92, APTT 27.2, Sodium 136, Potassium 3.8 D, Chloride 108 H, Carbon Dioxide 26, Anion Gap 5.8, BUN 15, Creatinine 0.60 D, Estimated Creat Clear 138, Estimated GFR 110, Est GFR ( Amer) 133 D, Glucose 91, Calcium 9.4, Total Bilirubin 0.5, AST 31, ALT 24 D, Alkaline Phosphatase 47, C-Reactive Protein 3.7, Total Protein 7.4, Albumin 4.5, Globulin 2.9, Albumin/Globulin Ratio 1.6, Lipase 107 03/11/24 20:45: Urine Color Cancelled, Urine Appearance Cancelled, Urine pH Cancelled, Ur Specific [place] Cancelled, Urine Protein Cancelled, Urine Glucose (UA) Cancelled, Urine Ketones Cancelled, Urine Blood Cancelled, Urine Nitrate Cancelled, Urine Bilirubin Cancelled, Urine Urobilinogen Cancelled, Ur Leukocyte Esterase Cancelled, Urine RBC Cancelled, Urine WBC Cancelled, Ur Squamous Epith Cells Cancelled, Ur Transition Epith Cell Cancelled, Ur Renal Epithelial Cell Cancelled, Calcium Carbonate Cryst Cancelled, Calcium Phosphate Cryst Cancelled, Calcium Oxalate Crystal Cancelled, Cystine Crystals Cancelled, Uric Acid Crystals Cancelled, Triple Phos Crystals Cancelled, Tyrosine Crystals Cancelled, Other Crystals Cancelled, Amorphous Sediment Cancelled, Other Sediment Cancelled, Urine Bacteria Cancelled, Fatty Casts Cancelled, Hyaline Casts Cancelled, Fine Granular Casts Cancelled, Coarse Granular Casts Cancelled, Waxy Casts Cancelled, RBC Casts Cancelled, WBC Casts Cancelled, Other Casts Cancelled, Urine Mucus Cancelled, Urine Trichomonas Cancelled, Urine Yeast Cancelled, Urine Sperm Cancelled 03/11/24 20:49: Stl Aeromonas (PCR) Not detected, Stl C. cayetanensis PCR Not detected, Stool Rotavirus (PCR) Not detected, Stl Adenov F 40/41 PCR Not detected, Stool Astrovirus (PCR) Not detected, Stool Campylobacter PCR Not detected, Stl C.difficile Tox PCR Not detected, Stool Cryptosporidium PCR Not detected, Stl E.coli Shiga Tox PCR Not detected, Stool E coli O157 PCR Not detected, Stl Enterotoxigenic E PCR Not detected, Stool EPEC (PCR) Not detected, Stool EAEC (PCR) Not detected, Stl E. histolytica PCR Not detected, Stool [place] rdia Lamblia PCR Not detected, Stool Salmonella PCR Not detected, Stool Sapovirus (PCR) Not detected, Stl P. shigelloides PCR Not detected, Stl Shigella/EIEC PCR Not detected, St Y.enterocolitica PCR Not detected, Stool Vibrio (PCR) Not detected, Stl Vibrio cholerae PCR Not detected, Stl Norovirus GI/GII PCR Not detected 03/12/24 07:13: WBC 12.7 H, RBC 4.16 L, Hgb 12.3 D, Hct 36.8 L, MCV 88.3, MCH 29.5, MCHC 33.4, RDW 14.2, Plt Count 281, MPV 8.3, Neut % (Auto) 57.7, Lymph % (Auto) 35.4, [place] % (Auto) 3.9, Eos % (Auto) 2.0, Baso % (Auto) 1.1, Neut # (Auto) 7.3, Lymph # (Auto) 4.5, [place] # (Auto) 0.5, Eos # (Auto) 0.3, Baso # (Auto) 0.1, Sodium 134 L, Potassium 3.6, Chloride 108 H, Carbon Dioxide 25, Anion Gap 4.6 L, BUN 10 D, Creatinine 0.70, Estimated Creat Clear 123, Estimated GFR 92, Est GFR ( Amer) 111, Glucose 126 H D, Lactate 1.9, Calcium 8.9, Magnesium 1.6, Total Bilirubin 0.5, AST 32, ALT 27, Alkaline Phosphatase 41, Total Protein 6.4, Albumin 4.0 D, Globulin 2.4, Albumin/Globulin Ratio 1.7 I & O for Last 24 hours: Intake & Output 03/09/24 03/10/24 03/11/24 03/12/24 23:59 23:59 23:59 23:59 Intake Total 902 / 902 Output Total 0 / 0 Balance 902 / 902 Weight 74.253 kg 74.253 kg Constitutional Constitutional: no acute distress, average body habitus, chronically ill appearing and agitated *Routine HEENT Exam Head: Present normocephalic Eye: Present EOMI and PERRL ENT: Present mucous membranes moist *Routine Neck Exam Neck: Present supple; Absent lymphadenopathy *Routine Respiratory Exam Respiratory: Present CTA bilaterally; Absent rhonchi, wheezes or crackles *Routine Cardiovascular Exam Cardiovascular: Present RRR *Routine Abdominal Exam Abdominal: Present soft, normoactive bowel sounds and tenderness (Nonfocal) *Routine Rectal Exam Patient deferred: visual exam *Routine Exam Patient deferred: external exam *Routine Extremities Exam Extremities: Absent cyanosis, clubbing or edema *Routine Skin Exam Skin: Present warm; Absent rash *Routine Neurological Exam Neurological: Present alert, oriented X3 and moving all extremities; Absent altered mental status Routine Psychiatric Exam Psychiatric: Present anxious; Absent good insight or good judgment Results Data Completed and Pending Labs on day of discharge: Labs from last 24 hours 03/12/24 03/11/24 03/11/24 07:13 20:49 20:45 WBC 12.7 H RBC 4.16 L Hgb 12.3 D Hct 36.8 L MCV 88.3 MCH 29.5 MCHC 33.4 RDW 14.2 Plt Count 281 MPV 8.3 Neut % (Auto) 57.7 Lymph % (Auto) 35.4 [place] % (Auto) 3.9 Eos % (Auto) 2.0 Baso % (Auto) 1.1 Neut # (Auto) 7.3 Lymph # (Auto) 4.5 [place] # (Auto) 0.5 Eos # (Auto) 0.3 Baso # (Auto) 0.1 ESR PT INR APTT Sodium 134 L Potassium 3.6 Chloride 108 H Carbon Dioxide 25 Anion Gap 4.6 L BUN 10 D Creatinine 0.70 Estimated Creat Clear 123 Estimated GFR 92 Est GFR ( Amer) 111 Glucose 126 H D Lactate 1.9 Calcium 8.9 Magnesium 1.6 Total Bilirubin 0.5 AST 32 ALT 27 Alkaline Phosphatase 41 C-Reactive Protein Total Protein 6.4 Albumin 4.0 D Globulin 2.4 Albumin/Globulin Ratio 1.7 Lipase Urine Color Cancelled Urine Appearance Cancelled Urine pH Cancelled Ur Specific [place] Cancelled Urine Protein Cancelled Urine Glucose (UA) Cancelled Urine Ketones Cancelled Urine Blood Cancelled Urine Nitrate Cancelled Urine Bilirubin Cancelled Urine Urobilinogen Cancelled Ur Leukocyte Esterase Cancelled Urine RBC Cancelled Urine WBC Cancelled Ur Squamous Epith Cells Cancelled Ur Transition Epith Cell Cancelled Ur Renal Epithelial Cell Cancelled Calcium Carbonate Cryst Cancelled Calcium Phosphate Cryst Cancelled Calcium Oxalate Crystal Cancelled Cystine Crystals Cancelled Uric Acid Crystals Cancelled Triple Phos Crystals Cancelled Tyrosine Crystals Cancelled Other Crystals Cancelled Amorphous Sediment Cancelled Other Sediment Cancelled Urine Bacteria Cancelled Fatty Casts Cancelled Hyaline Casts Cancelled Fine Granular Casts Cancelled Coarse Granular Casts Cancelled Waxy Casts Cancelled RBC Casts Cancelled WBC Casts Cancelled Other Casts Cancelled Urine Mucus Cancelled Urine Trichomonas Cancelled Urine Yeast Cancelled Urine Sperm Cancelled Stl Aeromonas (PCR) Not detected Stl C. cayetanensis PCR Not detected Stool Rotavirus (PCR) Not detected Stl Adenov F 40/41 PCR Not detected Stool Astrovirus (PCR) Not detected Stool Campylobacter PCR Not detected Stl C.difficile Tox PCR Not detected Stool Cryptosporidium PCR Not detected Stl E.coli Shiga Tox PCR Not detected Stool E coli O157 PCR Not detected Stl Enterotoxigenic E PCR Not detected Stool EPEC (PCR) Not detected Stool EAEC (PCR) Not detected Stl E. histolytica PCR Not detected Stool Giardia Lamblia PCR Not detected Stool Salmonella PCR Not detected Stool Sapovirus (PCR) Not detected Stl P. shigelloides PCR Not detected Stl Shigella/EIEC PCR Not detected St Y.enterocolitica PCR Not detected Stool Vibrio (PCR) Not detected Stl Vibrio cholerae PCR Not detected Stl Norovirus GI/GII PCR Not detected 03/11/24 20:27 WBC 14.5 H RBC 4.66 Hgb 13.7 Hct 40.3 MCV 86.5 MCH 29.3 MCHC 33.9 RDW 14.3 Plt Count 313 MPV 8.3 Neut % (Auto) 71.5 Lymph % (Auto) 21.9 [place] % (Auto) 4.1 Eos % (Auto) 1.6 Baso % (Auto) 0.9 Neut # (Auto) 10.4 H Lymph # (Auto) 3.2 [place] # (Auto) 0.6 Eos # (Auto) 0.2 Baso # (Auto) 0.1 ESR 16 PT 10.4 INR 0.92 APTT 27.2 Sodium 136 Potassium 3.8 D Chloride 108 H Carbon Dioxide 26 Anion Gap 5.8 BUN 15 Creatinine 0.60 D Estimated Creat Clear 138 Estimated GFR 110 Est GFR ( Amer) 133 D Glucose 91 Lactate Calcium 9.4 Magnesium Total Bilirubin 0.5 AST 31 ALT 24 D Alkaline Phosphatase 47 C-Reactive Protein 3.7 Total Protein 7.4 Albumin 4.5 Globulin 2.9 Albumin/Globulin Ratio 1.6 Lipase 107 Urine Color Urine Appearance Urine pH Ur Specific [place] Urine Protein Urine Glucose (UA) Urine Ketones Urine Blood Urine Nitrate Urine Bilirubin Urine Urobilinogen Ur Leukocyte Esterase Urine RBC Urine WBC Ur Squamous Epith Cells Ur Transition Epith Cell Ur Renal Epithelial Cell Calcium Carbonate Cryst Calcium Phosphate Cryst Calcium Oxalate Crystal Cystine Crystals Uric Acid Crystals Triple Phos Crystals Tyrosine Crystals Other Crystals Amorphous Sediment Other Sediment Urine Bacteria Fatty Casts Hyaline Casts Fine Granular Casts Coarse Granular Casts Waxy Casts RBC Casts WBC Casts Other Casts Urine Mucus Urine Trichomonas Urine Yeast Urine Sperm Stl Aeromonas (PCR) Stl C. cayetanensis PCR Stool Rotavirus (PCR) Stl Adenov F PCR Stool Astrovirus (PCR) Stool Campylobacter PCR Stl C.difficile Tox PCR Stool Cryptosporidium PCR Stl E.coli Shiga Tox PCR Stool E coli O157 PCR Stl Enterotoxigenic E PCR Stool EPEC (PCR) Stool EAEC (PCR) Stl E. histolytica PCR Stool Giardia Lamblia PCR Stool Salmonella PCR Stool Sapovirus (PCR) Stl P. shigelloides PCR Stl Shigella/EIEC PCR St Y.enterocolitica PCR Stool Vibrio (PCR) Stl Vibrio cholerae PCR Stl Norovirus GI/GII PCR DS: Diagnosis Discharge Diagnosis (1) Intractable abdominal pain: Status: Acute Code(s): R10.9 - Unspecified abdominal pain (2) Enteritis: Status: Acute Code(s): K52.9 - Noninfective gastroenteritis and colitis, unspecified (3) IBS (irritable bowel syndrome): Status: Acute Code(s): K58.9 - Irritable bowel syndrome, unspecified (4) Epigastric pain: Status: Acute Code(s): R10.13 - Epigastric pain (5) Bloody diarrhea: Status: Acute Code(s): R19.7 - Diarrhea, unspecified (6) Leukocytosis, unspecified: Status: Acute Code(s): D72.829 - Elevated white blood cell count, unspecified (7) Nausea: Status: Acute Code(s): R11.0 - Nausea (8) H/O bilateral oophorectomy: Status: Acute Code(s): Z90.722 - Acquired absence of ovaries, bilateral (9) Kidney stone: Status: Acute Code(s): N20.0 - Calculus of kidney Meds Home Medications and Allergies Home Medications ?Medication ?Instructions ?Recorded ?Confirmed ?Type cetirizine 10 mg tablet 10 mg PO HS 11/01/23 03/12/24 History escitalopram oxalate 20 mg tablet 20 mg PO HS 11/01/23 03/12/24 History nadolol 20 mg tablet 10 mg (1/2 x 20 mg) PO DAILY #30 01/10/24 03/11/24 Rx tabs dicyclomine 10 mg capsule 10 mg PO TID PRN Abdominal 03/12/24 Rx Discomfort 30 days #90 caps famotidine 40 mg tablet 40 mg PO HS 03/12/24 03/12/24 History New Prescriptions to Start Prescriptions: Jaden Jesus Allergies Allergy/AdvReac Type Severity Reaction Status Date / Time cephalexin [CEPHALEXIN] Allergy Severe SWELLS Verified 02/10/24 10:59 THROAT Fish Containing Products Allergy Unknown I-HIVES Verified 02/10/24 10:59 [FISH CONTAINING PRODUCTS] codeine [CODEINE] AdvReac Unknown MUSCLE Verified 02/10/24 10:59 SPASMS Discharge Plan Disposition Patient Disposition: Home, Self-Care Condition: Fair Follow up Plan Follow up with: Dannie Loaiza MD [Primary Care Provider] - Enter time for follow up (please call for appointment ) Teo Pittman II, MD [Staff Physician] - Enter time for follow up (please call for appointment) Prescriptions/Medication Reconciliation: New dicyclomine 10 mg Capsule 10 mg PO TID PRN (Reason: Abdominal Discomfort) 30 Days Qty: 90 0RF Continued nadolol 20 mg tablet 10 mg PO DAILY Qty: 30 2RF cetirizine 10 mg tablet 10 mg PO HS escitalopram oxalate 20 mg tablet 20 mg PO HS famotidine 40 mg tablet 40 mg PO HS Problem Reconciliation Problems Reviewed?: Yes Patient Discharge Instructions ACTIVITY: Continue current activity DIET: continue same diet Patient Instructions: Diarrhea, DI for Abdominal Pain-Adult Print Language: Ukrainian Providers Primary Care Provider: Dannie Loaiza Admit Provider: Jaden Morales Attending Provider: Jaden Morales
--- NOTE | 2024-03-12 10:24 | PC.NURSE ---
pt ambulated off of the floor. visitor in room called pt and informed her of the need to return to the floor. This RN and others searched until finding pt outside by the ER smoking. pt educated on staying on the floor while admitted. pt was disgruntled but agreeable. pt discharge order put in stat and pt properly discharged and walked out of the building.
--- NOTE | 2024-03-13 13:42 | CARE MANAGER ---
Called and spoke with patient regarding recent discharge. Patient stated that she is doing well, plans to call and schedule outpatient appts and has started new medication prescribed at discharge. No concerns/complaints voiced at time of call.
== END 2024-03-12 10:09 | disposition home or self-care (01) ==
LOC: ER 20:58 → 2ND 22:44
PROVIDERS: Nurse Practitioner; Nurse Practitioner Family; Admitting Provider Internal Medicine Adolescent Medicine; Emergency Provider Emergency Medicine; PCP Family Medicine; Visit Provider Internal Medicine Adolescent Medicine
DX: K52.9 Noninfective gastroenteritis and colitis, unspecified (principal); F17.210 Nicotine dependence, cigarettes, uncomplicated; Z79.899 Other long term (current) drug therapy; N20.0 Calculus of kidney; R11.0 Nausea; D72.829 Elevated white blood cell count, unspecified; K58.9 Irritable bowel syndrome, unspecified
CPT/HCPCS: 36415; 74178; 80053; 83605; 83690; 83735; 85025; 85610; 85651; 85730; 86140; 87507; 93005; 99285; G0378; J1171; J1885; J2270; J2405; J3475; J7120; Q9967

== ENCOUNTER 2024-09-15 12:46 | Outpatient (CLI) | payer OTHER, SELFPAY ==
--- NOTE | 2024-09-15 12:52 | XR_ITS ---
FINAL REPORT TECHNIQUE: Chest PA & Lateral CLINICAL HISTORY: pain with cough COMPARISON: 11/17/2023 FINDINGS: 2 views of the chest were performed. The heart size is normal. The mediastinum is within normal limits. There is no acute cardiopulmonary process. There are no pleural effusions. There is no pneumothorax. The bony thorax appears intact. IMPRESSION: No acute cardiopulmonary process. Reviewed, Interpreted and Dictated by Korey Kraus MD Transcribed by Marjorie Alvarez Authenticated and [facility]
[2024-09-15 13:17] LABS: Basophils # 0.1 K/mm3 (0-0.2); Basophils % 0.7 % (0.1-2.0); Eosinophils # 0.3 Kmm3 (0.0-0.4); Eosinophils % 2.1 % (0.1-12.0); Hematocrit 39.1 % (37.0-47.0); Hemoglobin 13.1 g/dL (12.2-16.2); Lymphocytes # 3.7 K/mm3 (0.7-4.5); Lymphocytes % 26.9 % (10-50); Mean Corpuscular HGB Conc 33.5 g/dL (31.8-35.4); Mean Corpuscular Hemoglobin 29.4 pg (27.0-31.2); Mean Corpuscular Volume 87.7 fl (81-99); Mean Platelet Volume 10.2 fl (7.4-10.4); Monocytes # 0.6 K/mm3 (0.1-1.0); Monocytes % 4.3 % (1.7-9.3); Neutrophils # 8.9 K/mm3 (1.8-7.8); Neutrophils % 65.7 % (37.0-80.0); Nucleated Red Blood Cells # 0 10^3/uL; Nucleated Red Blood Cells % 0 %; Platelet Count 333 K/mm3 (142-424); Red Blood Count 4.46 M/mm3 (4.20-5.40); Red Cell Distribution Width 14.4 % (11.5-17.5); Red Cell Distribution Width-SD 46.5 fL; White Blood Count 13.6 K/mm3 (4.8-10.8)
[2024-09-15 13:42] LABS: Albumin Level 4.2 g/dl (3.5-5.0); Chloride 106 mmol/L (98-107); Potassium 4.4 mmoL/L (3.5-5.1); Sodium 139 mmol/L (136-145)
[2024-09-15 13:45] LABS: Alanine Aminotransferase 17 U/L (12-78); Alkaline Phosphatase 53 U/L (38-126); Anion Gap 9.4 mEq/L (5-15); Aspartate Amino Transferase 23 U/L (14-36); Bilirubin,Direct 0.1 mg/dl (0.0-0.4); Bilirubin,Indirect 0.4 mg/dL (0.0-0.9); Bilirubin,Total 0.5 mg/dl (0.2-1.3); Bilirubin,Unconjugated 0.4 mg/dL (0.0-1.1); Blood Urea Nitrogen 10 mg/dl (7-17); Carbon Dioxide 28 mmol/L (22.0-30.0); Cholesterol 200 mg/dl (140-200); Estimated Glomerular Filt Rate 92 ml/min (>60); GFR (African American) 111 ML/MIN (>60); Total Protein,Serum 7.1 g/dl (6.3-8.2); Triglycerides 125 mg/dl (30-150); VLDL Cholesterol 25 mg/dL (0-40)
[2024-09-15 13:46] LABS: Calcium 9.3 mg/dl (8.4-10.2); Chol/HDL Ratio 3.7 (1-3.5); Glucose 67 mg/dl (74-100); HDL Cholesterol 54 mg/dl (40-60)
[2024-09-15 13:57] LABS: Direct LDL Cholesterol 110.41 mg/dL (100-129)
[2024-09-15 14:11] LABS: Free T4 (Free Thyroxine) 0.95 ng/dl (0.78-2.19)
[2024-09-15 14:16] LABS: Thyroid Stimulating Hormone 0.98 uIU/mL (0.465-4.68)
== END 2024-09-15 23:59 | disposition home or self-care (01) ==
LOC: RAD 12:48 → LAB 12:49
PROVIDERS: PCP Family Medicine; Visit Provider Nurse Practitioner Family
DX: R00.2 Palpitations (principal); R09.89 Other specified symptoms and signs involving the circulatory and respiratory systems; M35.9 Systemic involvement of connective tissue, unspecified; D72.829 Elevated white blood cell count, unspecified
CPT/HCPCS: 36415; 71046; 80048; 80061; 80076; 84439; 84443; 85025

== ENCOUNTER 2024-11-30 02:45 | Emergency (ER) | payer SELFPAY ==
--- NOTE | 2024-11-30 02:50 | ECG_ITS ---
APPROVED REPORT Exam: Resting ECG HR:62 bpm ECG Measurements Heart Rate 62 AXES GA 167 P 74 QRSd 96 QRS 83 QT 411 T 63 QTc 417 Conclusion SINUS RHYTHM POSSIBLE RIGHT VENTRICULAR CONDUCTION DELAY [RSR (QR) IN V1/V2] No STEMI Electronically signed by : DIANA MORALES, 11/30/2024 05:52:36
[2024-11-30 02:52] VITALS: BP 121/76; PULSE 66; RESP 14; TEMP 36.6; O2SAT 100; BMI 23.1
--- NOTE | 2024-11-30 02:52 | CT_ITS ---
PROCEDURE INFORMATION: Exam: CT Cervical Spine Without Contrast Exam date and time: 11/30/2024 3:19 AM Age: 44 years old Clinical indication: Injury or trauma; Additional info: Fell face first TECHNIQUE: Imaging protocol: Computed tomography of the cervical spine without contrast. Radiation optimization: All CT scans at this facility use at least one of these dose optimization techniques: automated exposure control; mA and/or kV adjustment per patient size (includes targeted exams where dose is matched to clinical indication); or iterative reconstruction. COMPARISON: CT FACIAL BONES WO CON 11/30/2024 3:17 AM FINDINGS: Bones: No acute fracture. Normal alignment. Lungs: Unremarkable. Soft tissues: Unremarkable. IMPRESSION: No acute findings identified.
--- NOTE | 2024-11-30 02:52 | CT_ITS ---
PROCEDURE INFORMATION: Exam: CT Maxillofacial Without Contrast Exam date and time: 11/30/2024 3:17 AM Age: 44 years old Clinical indication: Injury or trauma; Additional info: Fell face first TECHNIQUE: Imaging protocol: Computed tomography of the face without contrast. Radiation optimization: All CT scans at this facility use at least one of these dose optimization techniques: automated exposure control; mA and/or kV adjustment per patient size (includes targeted exams where dose is matched to clinical indication); or iterative reconstruction. COMPARISON: CT HEAD/BRAIN WO CON 11/30/2024 3:14 AM FINDINGS: Paranasal sinuses: No air-fluid levels. Orbital cavities: Orbits are normal. Globes are unremarkable. Bones: No acute fracture. Soft tissues: Unremarkable. IMPRESSION: No acute findings.
--- NOTE | 2024-11-30 02:52 | CT_ITS ---
PROCEDURE INFORMATION: Exam: CT Head Without Contrast Exam date and time: 11/30/2024 3:14 AM Age: 44 years old Clinical indication: Injury or trauma; Additional info: Fell face first TECHNIQUE: Imaging protocol: Computed tomography of the head without contrast. Radiation optimization: All CT scans at this facility use at least one of these dose optimization techniques: automated exposure control; mA and/or kV adjustment per patient size (includes targeted exams where dose is matched to clinical indication); or iterative reconstruction. COMPARISON: CR XR MANDIBLE MIN 4V 11/01/2023 8:39 AM FINDINGS: Brain: No hemorrhage. Unremarkable white matter. No mass effect. Cerebral ventricles: No ventriculomegaly. Paranasal sinuses: Visualized sinuses are unremarkable. No fluid levels. Mastoid air cells: Visualized mastoid air cells are well aerated. Bones: Unremarkable. No acute fracture. Soft tissues: Unremarkable. IMPRESSION: No acute intracranial abnormality.
--- NOTE | 2024-11-30 02:53 | XR_ITS ---
PROCEDURE INFORMATION: Exam: XR Chest Exam date and time: 11/30/2024 2:58 AM Age: 44 years old Clinical indication: Other: Syncope TECHNIQUE: Imaging protocol: Radiologic exam of the chest. Views: 2 views. COMPARISON: CR XR CHEST 2V 09/15/2024 12:58 PM FINDINGS: Lungs: Unremarkable. No consolidation. Pleural spaces: Unremarkable. No pleural effusion. No pneumothorax. Heart/Mediastinum: Unremarkable. No cardiomegaly. Bones/joints: Unremarkable. IMPRESSION: No acute findings.
--- OUTSIDE RECORDS SUMMARY | 2024-11-30 02:58 | XMS_ITS | Data Portability ---
Author Organization [facility] & RASHMI Forde ADMIN Address [address] [place] [phone] Care Team Providers Care Seismology Technical Officer Name Role Phone GINNY JONES Primary Care Provider GABRIELLE COSME Video Intern VINCENT MCCURDY Primary Care Provider Assessment No assessment recorded. Plan of Treatment Reminders Order Date Submit Date Provider Last Modified By Organization Details Last Modified Time Details Appointments None recorded. Lab None recorded. Referral None recorded. Procedures upper endoscopy procedure (EGD) (PROC) 2021 022 [email or web address] 4 Not available 3 08:39:29 upper endoscopy procedure (EGD) (PROC) 2021 022 [email or web address] 4 Not available 3 08:39:29 Surgeries None recorded. Imaging None recorded. Medication Orders dicyclomine 10 mg capsule 2021 022 [email or web address] [facility], [address] [place] [address], [id number], 2 11:30:14 famotidine 40 mg tablet 2021 022 [email or web address] [facility], [address] [place] [address], [id number], 2 10:46:47 pantoprazol e 40 mg tablet,parminder yed release [id number] [place] [address], [address] [place] [address], [id number], 2 10:46:47 Patient TargetsNo targets recorded. Patient InstructionsNo instructions recorded. Reason for Referral None Reported. Results Created Date Observation Date Name Description Value Unit Range Abnormal Flag Note LastModifiedBy Organization Detail LastModifiedTime Result Notes None recorded. Problems Name Problem SNOMED Code Status Onset Date Resolution Date Notes Provider Name and Address Organization Details Recorded Time Heart murmur 50617541 Active 2021 Zhanna [place] null, [place] - [facility] [place] [facility] [place] 2 13:41:13 Chronic hepatitis C 671817264 Active 2021 Zhannachar Howe null, [place] [facility] [place] 2 13:41:20 Environmental allergy 018310421 Active 2021 Zhanna [place] null, [place] [facility] [place] 2 13:41:27 Irritable bowel syndrome 90157826 Active 2021 Zhanna [place] null, [place] [facility] [place] 2 13:41:32 Peptic ulcer 46657401 Active 2021 Zhannachar Howe null, [place] [facility] [place] 2 13:41:44 Esophageal dysphagia 82256234 Active 2021 Gabrielle Cosme NP [address], [address], [place], [phone], [place] [facility] [place] 2 11:33:49 Irritable bowel syndrome with diarrhea 349211107 Active 2021 Gabrielle Cosme NP [address], [address], [place], [address], [place] [facility] [place] 2 11:33:49 Epigastric pain 44101397 Active 2021 Gabrielle Cosme NP [address], [address], [place], [address], [place] [facility] [place] 2 11:33:49 Problem Notes None recorded. Procedures Surgical History Date Name Laterality Status Provider Name and Address Organization Details Recorded Time 9 Carpal tunnel surgery completed Zhanna CARABALLO [facility] & [place] 05/20/2022 13:43:09 Imaging Results None recorded. Procedure Notes None recorded. Medical Equipment None Reported. Allergies Allergen ID Allergen Name Allergen Category Reaction Reaction Severity Criticality Documentation Date Start Date Code Code System Note Provider Name and Address Organization Details Recorded Time 04541 Keflex medicatio n hives rash Not available Not available Not available 05/20/2022 21922 7 RxNorm [facility] Zhang [facility] & [place] 13:40:18 39988 codeine medicatio n anaphylax is severe high 05/20/2022 2670 RxNorm [facility] Zhang [facility] & [place] 13:40:32 Medications Name Sig Start Date Stop Date Status Note LastModified by Organization Details LastModified Time cetirizine 10 mg tablet active Not Available Not Available Not Available promethazin e 12.5 mg tablet 05/20 completed Not Available Not Available Not Available famotidine 40 mg tablet TAKE 1 TABLET BY MOUTH AT BEDTIME 2022 active Not Available Not Available Not Avai lable prednisone 20 mg tablet 05/20 completed Not Available Not Available Not Available famotidine 20 mg tablet active Not Available Not Available Not Available pantoprazol e 40 mg tablet,parminder yed release Take 1 tablet every day by oral route at bedtime for 30 days. active Not Available Not Available No t Available ondansetron 4 mg disintegrat ing tablet 05/20 completed Not Available Not Available Not Available fluticasone propionate 50 mcg/actuati on nasal spray,suspe nsion active Not Available Not Available Not Available dicyclomine 10 mg capsule TAKE 1 CAPSULE BY MOUTH FOUR TIMES DAILY DIRECTED active Not Available Not Available No t Available naproxen 500 mg tablet active Not Available Not Available Not Available amoxicillin 875 mg-potassiu m clavulanate 125 mg tablet 05/20 completed Not Available Not Available Not Available escitalopra m 10 mg tablet active Not Available Not Available Not Available escitalopra m 20 mg tablet active Not Available Not Available Not Available [employer] At-Home COVID-19 Test kit 05/20 completed Not Available Not Available Not Available Vitals Date Recorded Body height Body mass index (BMI) Body weight Body temperature Oxygen saturation Oxygen saturation in Arterial blood by Pulse oximetry Heart rate Provider Name and Address Organization Details Last Updated DateTime 2 170.18 cm 23.3 kg/m2 16821.2 6 g 97.8 [degF] 97 % 97 % 94 /min Zhanna Howe [facility] & [place] 2 13:47:05 Social History None recorded. Functional Status Question Answer Note LastModified by Organizat ion Details LastModified Time Do you use any illicit or recreational drugs? HX of IV & Intranasal drug abuse. [email or web address] Information not available 05/20/2022 What is your level of alcohol consumption? 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 Family History Relationship Description Onset Age of this Age Resolved Age Notes LastModified by Organization Details LastModified Time Mother Hypertensive disorder [email or web address] Not available 05/20 13:41:54 Father Diabetes mellitus [email or web address] Not available 05/20 13:42:05 Father Carcinoma of prostate [email or web address] Not available 05/20 13:42:17 Medical History Condition Response Anxiety Disorder Y Hepatitis Y Gynecological HistoryNo gynecological history recorded. Obstetrics History GPAL:G 0 P 0 0 0 0 Past Encounters Encounter ID Performer Location Encounter Start Date Encounter Closed Date Diagnosis/Indication Diagnosis SNOMED-CT Code Diagnosis ICD10 Code Diagnosis Note [id number] Gabrielle Cosme NP [facility] [address] [place] [phone] 05/20/2022 13:05:27 05/21/2022 11:35:31 Esophageal dysphagia 55366484 R13.19 Two month history of dysphagia solid foods. Denies regurgitat ion. Mild improvemen t with use of famotidine 20 mg b.i.d.. Recommend EGD to evaluate for esophagiti s, esophageal stricture, ring, other. Recommend pantoprazo le 40 mg p.o. daily as well as Famotidine 40 mg po HS. Pt is scheduled for EGD 06/17/2021 @ 8:30 AM Epigastric pain 78516993 R10.13 episodes of epigastric abdominal pain. Plan for EGD to evaluate for H pylori gastritis, PUD, other. Recommend PPI and famotidine for treatment. Irritable bowel syndrome with diarrhea 505526263 K58.0 Reports colonoscop y last year at [facility] and diagnosed [facility] IBS-D, records have been requested for review. Patient was recently prescribed dicyclomin e 10 mg for treatment with improved symptoms, patient is requesting refills today. Health Concerns Section Related Observation LastModified by Organization Detai ls LastModified Time None Recorded Concern Status LastModified by Organization Details LastModified Time None Recorded Advance Directives Directive None Recorded Payers Insurance Date Sequence Insurance Name Policy Number Policy Maurer Covered Member ID Maurer Member ID Guarantor Name 11/20/2024 1 [facility] (MEDICAID HMO) Ivanna Elsie [id number] Ivanna Elsie 11/20/2024 1 [facility] (MEDICAID O) Ivanna Elsie [id number] Ivanna Zimmerman Notes Date Note Type Note Provider Name and Address Organization Details Recorded Time 05/20/2022 text/html 42 yo female presents today with complaints of esophageal dysphagia ongoing for the past 2 months. Symptoms worse with meats and breads, denies regurgitation. she was prescribed famotidine 20 mg b.i.d. recently with some improvement of epigastric pain as well as dysphagia. Reports having colonoscopy last year at [facility] and was diagnosed with IBS. She had been experiencing episodes of abdominal cramping and diarrhea and recently prescribed Dicyclomine with improved symptoms and requesting refills today. Gabrielle Cosme NP [address] [place] [address], [address], [place], [address], [facility] - [place] - [place] & [place] 05/21/2022 11:34:04 OBGyn Episode No OBEpisode recorded.
[2024-11-30 03:07] LABS: Hematocrit 36.5 % (37.0-47.0); Hemoglobin 12.5 g/dL (12.2-16.2); Immature Granulocytes % 0.2 %; Mean Corpuscular HGB Conc 34.2 g/dL (31.8-35.4); Mean Corpuscular Hemoglobin 29.5 pg (27.0-31.2); Mean Corpuscular Volume 86.1 fl (81-99); Nucleated Red Blood Cells % 0 %; Platelet Count 317 K/mm3 (142-424); Red Blood Count 4.24 M/mm3 (4.20-5.40); Red Cell Distribution Width-SD 42.8 fL; White Blood Count 11.2 K/mm3 (4.8-10.8)
[2024-11-30] MEDS: ACETAMINOPHEN 500MG TAB 1000 MG PO (03:08)
[2024-11-30] MEDS: LACTATED RINGERS 1000ML 1,000 ML 999 ML IV (03:09)
[2024-11-30] MEDS: KETOROLAC 30MG/ML VIAL 30 MG IV (03:09)
--- NOTE | 2024-11-30 03:12 | HMH.EDGENADL ---
Discharge Plan Disposition Patient Disposition: Home, Self-Care Condition: Good Prescriptions Prescriptions: No Action azithromycin 250 mg tablet See Rx Instructions PO .COMPLEX Qty: 6 0RF Rx Instructions: For 250 mg dose pack: take 500 mg today (day 1), then 250 mg for 4 days (days 2-5) PO prednisone 20 mg tablet 20 mg PO BID Qty: 10 0RF benzonatate 100 mg capsule 100 mg PO TID PRN (Reason: cough) Qty: 30 0RF guaifenesin [Mucinex] 1,200 mg tablet extended release 12hr 1,200 mg PO BID Qty: 20 0RF diphenoxylate-atropine 2.5-0.025 mg tablet 1 tab PO hyoscyamine sulfate 0.125 mg tablet, sublingual 0.125 mg PO nadolol 20 mg tablet See Rx Instructions .ROUTE .COMPLEX Qty: 45 3RF Dose Instruction: TAKE 1/2 TABLET (10MG) BY MOUTH ONCE DAILY Rx Instructions: TAKE 1/2 TABLET (10MG) BY MOUTH ONCE DAILY estradiol 1 mg tablet See Rx Instructions .ROUTE .COMPLEX Qty: 30 5RF Dose Instruction: TAKE 1 TABLET BY MOUTH ONCE DAILY Rx Instructions: TAKE 1 TABLET BY MOUTH ONCE DAILY oxybutynin chloride 5 mg tablet extended release 24hr See Rx Instructions .ROUTE .COMPLEX Qty: 30 5RF Dose Instruction: TAKE 1 TABLET BY MOUTH ONCE DAILY Rx Instructions: TAKE 1 TABLET BY MOUTH ONCE DAILY cetirizine 10 mg tablet 10 mg PO HS escitalopram oxalate 20 mg tablet 20 mg PO HS famotidine 40 mg tablet 40 mg PO HS dicyclomine 10 mg Capsule 10 mg PO TID PRN (Reason: Abdominal Discomfort) 30 Days Qty: 90 0RF Referrals Follow up/Referrals: Provider,Referral, MD [Primary Care Provider, Medical] - See instructions Clinical Impressions Clinical Impression: Syncope, Traumatic ecchymosis of left eyebrow Instructions Patient Instructions: DI for Syncope in Adults (Fainting), DI for Syncope in Children (Fainting) Print Language Print Language: Cypriot Discharge ED Provider: Olivia Rosa Adult [facility] General Chief complaint: Syncope Stated complaint: syncope episode Time Seen by Provider: 11/30/24 02:51 Mode of Arrival: Wheelchair Source of Information: Patient and Significant Other Description of Symptoms (Recalled from ER Triage Doc. by RN): Pt presents to ED after a syncopal episode upstairs in OB. Pt states she was here visiting and started to feel woozy . Pt attempted to go to the restroom to get a cold cloth, however she passed out in the hallway. Pt states she hit her face on the floor. Pt rates eye/head pain 01/07. Pt states this has happened before bc she has a high heartbeat but she normally takes medication and she's been out for 3 weeks. Pt states she has no other pain at this time. Pt is A&O*4 now and is bedside. History of Present Illness HPI narrative: 44-year-old female presents to the ER from the OB floor. Patient states she was up there visiting waiting for her grand baby to be delivered and started to feel woozy, she attempted to leave the room however she blacked out and then fell in the hallway. She states she struck her face on the floor. She does not remember the fall or striking her face but woke up on the floor. She states her left eyebrow hurts and she has headache from the incident. She states she has passed out before from seeing blood in stressful situations, she also states she has had syncope before because of a high heartbeat but states she has been out of her nadolol for the last 3 weeks. She has no vomiting, numbness, tingling, weakness, dizziness, vision changes, or other associated symptoms at this time. No other complaints or concerns. Related Data Home Medications ?Medication ?Instructions ?Recorded ?Confirmed cetirizine 10 mg tablet 10 mg PO HS 11/01/23 09/15/24 escitalopram oxalate 20 mg tablet 20 mg PO HS 11/01/23 09/15/24 famotidine 40 mg tablet 40 mg PO HS 03/12/24 09/15/24 diphenoxylate-atropine 2.5 1 tab PO 04/18/24 09/15/24 mg-0.025 mg tablet hyoscyamine sulfate 0.125 mg 0.125 mg PO 04/18/24 09/15/24 sublingual tablet Previous Rx's ?Medication ?Instructions ?Recorded dicyclomine 10 mg capsule 10 mg PO TID PRN Abdominal 03/12/24 Discomfort 30 days #90 caps nadolol 20 mg tablet See Rx Instructions .Route 07/26/24 .COMPLEX #45 tabs estradiol 1 mg tablet See Rx Instructions .Route 08/22/24 .COMPLEX #30 tabs oxybutynin chloride 5 mg See Rx Instructions .Route 08/22/24 tablet,extended release 24 hr .COMPLEX #30 tabs azithromycin 250 mg tablet See Rx Instructions PO .COMPLEX #6 09/15/24 tabs benzonatate 100 mg capsule 100 mg PO TID PRN cough #30 caps 09/15/24 guaifenesin 1,200 mg tablet, 1,200 mg PO BID #20 tabs 09/15/24 extended release 12 hr (Mucinex) prednisone 20 mg tablet 20 mg PO BID #10 tabs 09/15/24 Allergies Allergy/AdvReac Type Severity Reaction Status Date / Time cephalexin (CEPHALEXIN) Allergy Severe SWELLS Verified 09/15/24 11:51 THROAT Fish Containing Products Allergy Unknown I-HIVES Verified 08/09/24 14:58 (FISH CONTAINING PRODUCTS) codeine (CODEINE) AdvReac Unknown MUSCLE Verified 08/09/24 14:58 SPASMS PFSH PFSH Disclaimer: The information contained in this section may have been updated after the patient was seen, as this information can be updated by other users. Medical History (Updated 11/30/24 @ 03:43 by Olivia Rosa MD) Sinusitis Mixed urge and stress incontinence Abdominal tenderness, periumbilical Ureterolithiasis Family history of ischemic heart disease Hx of intravenous drug use in remission Encounter for Routine Gynecological Examination Internal hemorrhoid Hx of hepatitis C Carpal tunnel syndrome on right SVT (supraventricular tachycardia) PAC (premature atrial contraction) Palpitations Urinary tract infection Kidney stone IBS (irritable bowel syndrome) Depression Hyperlipidemia Anxiety Surgical History History of hysterectomy with bilateral oophorectomy History of tonsillectomy and adenoidectomy History of hysterectomy Social History Smoking Status: Current every day smoker tobacco type: cigarettes packs per day: 1 second hand exposure: Yes alcohol intake: never 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) current occupational status: other Travel in the last 8 weeks?: None household members: family housing: house 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 current occupational exposures/hazards: No caffeine: Yes Other Medical History Have you received the Flu Vaccine for this season: No Have you received the Pneumonia Vaccine: No ROS Obtained: Yes Systems reviewed as appropriate & no additional complaints except as documented per HPI Physical Exam General General appearance: alert and in no apparent distress Head Head exam: normocephalic and other (Small ecchymosis and tenderness over the left eyebrow with no deformity) Eye Eye exam: Present PERRL and EOMI ENT ENT exam: Present mucous membranes moist Neck Neck exam: Present normal inspection and full ROM Chest Chest inspection: Present symmetric chest wall rise Respiratory Respiratory exam: Present normal lung sounds bilaterally; Absent respiratory distress, wheezes or stridor Cardiovascular Cardiovascular exam: Present regular rate and normal rhythm Abdominal Exam Abdominal exam: Present soft; Absent distention or tenderness Extremities Exam Extremities exam: Present full ROM; Absent tenderness or edema Neurological Exam Neurological exam: Present alert and oriented X3; Absent motor sensory deficit Psychiatric Psychiatric exam: Present normal affect and normal mood Skin Skin exam: Present warm and dry Medical Decision Making Medical Records Medical records reviewed: Yes I reviewed the patient's medical records. Screening: Per USPSTF and CDC recommendations, given the prevalence of disease in our region, it is our hospital?s policy to screen for HIV and viral Hepatitis for all patients aged 18 and over and those with ongoing risk factors. Stew Inquiry Pt receiving controlled substance: No Vital Signs: 11/30/24 02:52 Temperature 97.8 F Temperature Source Oral Pulse Rate [Left] 66 Respiratory Rate 14 Blood Pressure [Right Arm] 121/76 Blood Pressure Mean [Right Arm] 91 02 Sat by Pulse Oximetry 100 Oxygen Delivery Method Room Air Lab Data Lab Results 11/30/24 03:01: WBC 11.2 H, RBC 4.24, Hgb 12.5, Hct 36.5 L, MCV 86.1, MCH 29.5, MCHC 34.2, RDW 13.8, Plt Count 317, MPV 10.6 H, Neut % (Auto) 41.8, Lymph % (Auto) 49.0, [place] % (Auto) 5.8, Eos % (Auto) 2.2, Baso % (Auto) 1.0, Neut # (Auto) 4.7, Lymph # (Auto) 5.5 H, [place] # (Auto) 0.7, Eos # (Auto) 0.3, Baso # (Auto) 0.1 11/30/24 03:01 Orders (Tests/Meds): ED MEDICATIONS Generic Name Dose Route Start Last Admin Trade Name Freq PRN Reason Stop Dose Admin Lactated Ringer's 1,000 mls @ 999 mls/hr 11/30/24 02:53 11/30/24 03:09 Lactated Ringer's 1000 Ml Bag IV 11/30/24 03:53 999 mls/hr .Q1H1M ONE Administration Discontinued Medications Generic Name Dose Route Start Last Admin Trade Name Freq PRN Reason Stop Dose Admin Acetaminophen 1,000 mg 11/30/24 03:00 11/30/24 03:08 Acetaminophen 500mg Tab PO 11/30/24 03:01 1,000 mg ONCE ONE Administration Ketorolac Tromethamine 30 mg 11/30/24 03:00 11/30/24 03:09 Ketorolac 30mg/Ml Vial IV 11/30/24 03:01 30 mg ONCE ONE Administration ORDERS Category Date Time Status CT cervical spine wo con Stat Cat Scan 11/30/24 02:[address] facial bones wo con Stat Cat Scan 11/30/24 02:[address] head/brain wo con Stat Cat Scan 11/30/24 02:52 Ordered CXR 2 view (NOT portable) [XR chest 2V] Stat Exams 11/30/24 02:53 Ordered CBC w/Auto Diff [Complete Blood Count Auto Diff] Stat Lab 11/30/24 03:01 Results CMP [Comprehensive Metabolic Panel] Stat Lab 11/30/24 03:01 Received Trop I [Troponin I] Stat Lab 11/30/24 03:01 Received Troponin I Q3H Lab 11/30/24 06:00 Ordered Troponin I Q3H Lab 11/30/24 09:00 Ordered Medical Decision Narrative: In summary, this 44-year-old female with history of incontinence, hysterectomy, IBS, PACs, palpitations, hepatitis C, previous heroin abuse in remission presents to the emergency department today with left eyebrow pain and headache after syncoping and striking her head. On initial evaluation patient is hemodynamically stable, afebrile, GCS 15, no neurologic deficits, tenderness to palpation of the left eyebrow with mild bruising but no deformity, no evidence of injury to the eye, no vision changes, no evidence of basilar skull fracture, no neck pain or tenderness, no other evidence of traumatic injury on exam. Differential diagnosis includes but is not limited to intracranial bleed, skull fracture, facial fracture, I have low suspicion for C-spine injury but the left eyebrow pain could be a distracting injury, also considered the possibility of palpitations, arrhythmia, electrolyte abnormality, patient has no chest pain so I have very low suspicion for ACS but it was considered as well, patient is PERC negative. Ruling out most morbid conditions drove my assessment. Based on these concerns CT imaging, serum labs, cardiac workup were ordered. ECG personally interpreted demonstrates normal sinus rhythm, rate 62, normal axis, normal NC and QTc, no STEMI. No evidence of WPW, Brugada, HCM, or prolonged QT. Patient received Toradol, Tylenol, IV fluids for treatment. Labs personally reviewed demonstrate slight leukocytosis WBC 11.2 improved from previous, no anemia, normal platelets, slight hypokalemia treated with oral repletion, CMP otherwise unremarkable and nonactionable, initial troponin undetectably low less than 0.01 significantly reassuring in the setting of normal EKG, no chest pain. Chest x-ray personally interpreted does not demonstrate acute intrathoracic abnormality, see radiology read for final interpretation. CT head, C-spine, facial bones were personally interpreted and I do not appreciate acute traumatic injury in any of the studies, see radiology read for final interpretations. On reassessment patient continues to be stable, GCS 15, alert, ambulatory, tolerating oral intake. I believe she is appropriate for discharge at this time. Patient is comfortable with this plan. Patient was given instructions on symptomatic management, follow up instructions, and return precautions for the emergency department. Patient indicated understanding and was discharged in stable condition. Critical Care Critical Care Time Critical Care Time: No
[2024-11-30 03:18] LABS: Albumin Level 4.4 g/dl (3.5-5.0); Chloride 101 mmol/L (98-107); Sodium 139 mmol/L (136-145)
[2024-11-30 03:19] LABS: Potassium 3.1 mmoL/L (3.5-5.1)
[2024-11-30 03:21] LABS: Anion Gap 14.1 mEq/L (5-15); Blood Urea Nitrogen 13 mg/dl (7-17); Carbon Dioxide 27 mmol/L (22.0-30.0); Creatinine Clearance Estimated 111 mL/min (50-200); Creatinine,Serum 0.70 mg/dl (0.52-1.04); Estimated Glomerular Filt Rate 92 ml/min (>60); GFR (African American) 111 ML/MIN (>60)
[2024-11-30 03:22] LABS: Alanine Aminotransferase 23 U/L (12-78); Albumin/Globulin Ratio 1.6 (1.1-1.8); Alkaline Phosphatase 50 U/L (38-126); Aspartate Amino Transferase 39 U/L (14-36); Bilirubin,Total 0.3 mg/dl (0.2-1.3); Calcium 9.0 mg/dl (8.4-10.2); Globulin 2.8 g/dL (1.3-3.2); Glucose 122 mg/dl (74-100); Total Protein,Serum 7.2 g/dl (6.3-8.2)
[2024-11-30 03:32] LABS: RBC Morphology Normal; Total Cells Counted 100
[2024-11-30 03:35] LABS: Troponin I < 0.01 ng/ml (0.00-0.034)
[2024-11-30] MEDS: POTASSIUM CHLORIDE 20MEQ TAB 40 MEQ PO (03:43)
[2024-11-30 03:50] VITALS: BP 119/78; PULSE 80; RESP 18; TEMP 36.6; O2SAT 99
== END 2024-11-30 03:51 | disposition home or self-care (01) ==
PROVIDERS: Emergency Provider Emergency Medicine
DX: R55 Syncope and collapse (principal); S00.12XA Contusion of left eyelid and periocular area, initial encounter; F17.210 Nicotine dependence, cigarettes, uncomplicated
CPT/HCPCS: 70450; 70486; 71046; 72125; 80053; 84484; 85007; 85025; 85027; 93005; 96361; 96374; 99285; J1885; J7120

== ENCOUNTER 2024-12-05 15:50 | Emergency (ER) | payer SELFPAY | END 2024-12-05 16:08 | disposition left against medical advice (07) | PROVIDERS: Emergency Provider Emergency Medicine; PCP Family Medicine | DX: Z53.21 Procedure and treatment not carried out due to patient leaving prior to being seen by health care provider (principal) | CPT/HCPCS: 99211 ==

== ENCOUNTER 2024-12-05 17:01 | Outpatient (CLI) | payer SELFPAY ==
--- NOTE | 2024-12-05 17:06 | XR_ITS ---
PROCEDURE INFORMATION: Exam: XR Right Clavicle, Complete Exam date and time: 12/05/2024 5:04 PM Age: 44 years old Clinical indication: Injury or trauma; Fall; Blunt trauma (contusions or hematomas); Shoulder; Right; Additional info: R rib pain, clavicle pain TECHNIQUE: Imaging protocol: Radiologic exam of the right clavicle. Complete exam. Views: Any number of views. COMPARISON: CR Ribs R 12/05/2024 4:58 PM FINDINGS: Bones/joints: There is no evidence of acute fracture.There is no evidence of malalignment or dislocation. Soft tissues: Normal. IMPRESSION: There is no evidence of acute fracture.There is no evidence of malalignment or dislocation.
--- NOTE | 2024-12-05 17:06 | XR_ITS ---
PROCEDURE INFORMATION: Exam: XR Right Ribs with PA Chest Exam date and time: 12/05/2024 4:58 PM Age: 44 years old Clinical indication: Injury or trauma; Fall; Rib area; Blunt trauma (contusions or hematomas); Additional info: Right rib pain TECHNIQUE: Imaging protocol: Radiologic exam of the right ribs with PA chest. Views: 3 views COMPARISON: CR XR CHEST 2V 11/30/2024 2:58 AM FINDINGS: Lungs: Unremarkable. No consolidation. Pleural spaces: Unremarkable. No pleural effusion. No pneumothorax. Heart/Mediastinum: Unremarkable. No cardiomegaly. Bones/joints: Unremarkable. IMPRESSION: No acute findings.
== END 2024-12-05 23:59 | disposition home or self-care (01) ==
LOC: RAD 17:03
PROVIDERS: PCP Family Medicine; Visit Provider Student in an Organized Health Care Education/Training Program
DX: M89.8X8 Other specified disorders of bone, other site (principal); R07.81 Pleurodynia
CPT/HCPCS: 71101; 73000

== ENCOUNTER 2025-01-23 03:32 | Emergency (ER) | payer SELFPAY ==
[2025-01-23 03:37] VITALS: BP 149/74; PULSE 114; RESP 16; O2SAT 98
--- NOTE | 2025-01-23 03:39 | [facility].EDGENADL ---
Discharge Plan Disposition Patient Disposition: Home, Self-Care Prescriptions Prescriptions: No Action ibuprofen 600 mg tablet 600 mg PO TID Qty: 30 0RF diphenoxylate-atropine 2.5-0.025 mg tablet 1 tab PO hyoscyamine sulfate 0.125 mg tablet, sublingual 0.125 mg PO nadolol 20 mg tablet See Rx Instructions .ROUTE .COMPLEX Qty: 45 3RF Dose Instruction: TAKE 1/2 TABLET (10MG) BY MOUTH ONCE DAILY Rx Instructions: TAKE 1/2 TABLET (10MG) BY MOUTH ONCE DAILY estradiol 1 mg tablet See Rx Instructions .ROUTE .COMPLEX Qty: 30 5RF Dose Instruction: TAKE 1 TABLET BY MOUTH ONCE DAILY Rx Instructions: TAKE 1 TABLET BY MOUTH ONCE DAILY oxybutynin chloride 5 mg tablet extended release 24hr See Rx Instructions .ROUTE .COMPLEX Qty: 30 5RF Dose Instruction: TAKE 1 TABLET BY MOUTH ONCE DAILY Rx Instructions: TAKE 1 TABLET BY MOUTH ONCE DAILY cetirizine 10 mg tablet 10 mg PO HS escitalopram oxalate 20 mg tablet 20 mg PO HS famotidine 40 mg tablet 40 mg PO HS Referrals Follow up/Referrals: Dannie Loaiza MD [Primary Care Provider, Medical] - See instructions Activity Restrictions/Add. Instructions Additional Instructions/Restrictions: Please follow-up with your primary care provider. Please return to the emergency department if you develop any new or worsening symptoms or become concerned for your health. Clinical Impressions Clinical Impression: Headache Qualifiers: Headache chronicity pattern: acute headache Intractability: not intractable Print Language Print Language: Sudanese Discharge ED Provider: Carl Taylor General Adult HPI General Chief complaint: Headache Stated complaint: headache, body aches, nausea Time Seen by Provider: 01/23/25 03:35 History of Present Illness HPI narrative: 44-year-old female with history of IBS, migraines, hysterectomy presents for flulike symptoms. She reports she has developed headache, fatigue, muscle aches, malaise over the last few hours. She reports last time she felt like this was when she had COVID. She denies any specific chest pain, shortness of breath, abdominal pain. Does report nausea. Denies fever. Related Data Home Medications ?Medication ?Instructions ?Recorded ?Confirmed cetirizine 10 mg tablet 10 mg PO HS 11/01/23 12/05/24 escitalopram oxalate 20 mg tablet 20 mg PO HS 11/01/23 12/05/24 famotidine 40 mg tablet 40 mg PO HS 03/12/24 12/05/24 diphenoxylate-atropine 2.5 1 tab PO 04/18/24 12/05/24 mg-0.025 mg tablet hyoscyamine sulfate 0.125 mg 0.125 mg PO 04/18/24 12/05/24 sublingual tablet Previous Rx's ?Medication ?Instructions ?Recorded nadolol 20 mg tablet See Rx Instructions .Route 07/26/24 .COMPLEX #45 tabs estradiol 1 mg tablet See Rx Instructions .Route 08/22/24 .COMPLEX #30 tabs oxybutynin chloride 5 mg See Rx Instructions .Route 08/22/24 tablet,extended release 24 hr .COMPLEX #30 tabs ibuprofen 600 mg tablet 600 mg PO TID #30 tabs 12/05/24 Allergies Allergy/AdvReac Type Severity Reaction Status Date / Time cephalexin (CEPHALEXIN) Allergy Severe SWELLS Verified 12/05/24 16:22 THROAT Fish Containing Products Allergy Unknown I-HIVES Verified 12/05/24 16:22 (FISH CONTAINING PRODUCTS) codeine (CODEINE) AdvReac Unknown MUSCLE Verified 12/05/24 16:22 SPASMS PFSH PFSH Disclaimer: The information contained in this section may have been updated after the patient was seen, as this information can be updated by other users. Medical History Sinusitis Mixed urge and stress incontinence Abdominal tenderness, periumbilical Ureterolithiasis Family history of ischemic heart disease Hx of intravenous drug use in remission Encounter for Routine Gynecological Examination Internal hemorrhoid Hx of hepatitis C Carpal tunnel syndrome on right SVT (supraventricular tachycardia) PAC (premature atrial contraction) Palpitations Urinary tract infection Kidney stone IBS (irritable bowel syndrome) Depression Hyperlipidemia Anxiety Surgical History History of hysterectomy with bilateral oophorectomy History of tonsillectomy and adenoidectomy History of hysterectomy Social History Smoking Status: Current every day smoker tobacco type: cigarettes packs per day: 1 second hand exposure: Yes alcohol intake: never 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) current occupational status: other Travel in the last 8 weeks?: None household members: family housing: house current occupation: [employer] current occupational exposures/hazards: No caffeine: Yes Have you lived/traveled outside [place] in past 30 days?: No Contact w/someone who lives/traveled outside [place] past 30 days?: No Exposure to someone with infectious disease in past 14 days?: No Do you have a fever (greater than 100.4 F or 38 C)?: No Have you tested positive for COVID-19?: No Exposed to someone with COVID-19 in past 14 days?: No Do you have a sore throat?: No Do you have a cough?: No Do you have any weakness?: No Do you have any diarrhea?: No Are you experiencing any unusual bleeding?: No Do you have any muscle aches/pain?: Yes Do you have any abdominal pain?: No Are you experiencing loss of taste or smell?: No Other Medical History Have you received the Flu Vaccine for this season: No Have you received the Pneumonia Vaccine: No ROS Obtained: Yes All systems reviewed & no additional complaints except as documented Physical Exam General General appearance: alert and in no apparent distress Head Head exam: atraumatic and normocephalic Eye Eye exam: Present normal appearance, PERRL and EOMI ENT ENT exam: Present normal oropharynx and normal external ear exam Neck Neck exam: Present normal inspection and full ROM Chest Chest inspection: Present normal inspection and symmetric chest wall rise; Absent tenderness Respiratory Respiratory exam: Present normal lung sounds bilaterally; Absent respiratory distress Cardiovascular Cardiovascular exam: Present regular rate and normal rhythm Abdominal Exam Abdominal exam: Present soft; Absent distention, tenderness or guarding Extremities Exam Extremities exam: Present normal inspection; Absent edema or joint swelling Back Exam Back exam: Present normal inspection; Absent tenderness Neurological Exam Neurological exam: Present alert and oriented X3; Absent motor sensory deficit Psychiatric Psychiatric exam: Present normal affect and normal mood Skin Skin exam: Present warm, dry and normal color Lymphatic Lymphatic Findings: no adenopathy Medical Decision Making Medical Records Medical records reviewed: Yes I reviewed the patient's medical records. Screening: Per USPSTF and CDC recommendations, given the prevalence of disease in our region, it is our hospital?s policy to screen for HIV and viral Hepatitis for all patients aged 18 and over and those with ongoing risk factors. Stew Inquiry Pt receiving controlled substance: No Stew was queried for this patient: No Vital Signs: 01/23/25 03:37 01/23/25 03:40 01/23/25 04:00 Temperature 98.6 F 98.0 F Temperature Source Oral Pulse Rate 114 H 109 H Pulse Rate [Right Radial] 94 H Respiratory Rate 16 20 16 Blood Pressure 149/74 H 144/62 H Blood Pressure [Right Arm] 149/74 H Blood Pressure Mean [Right Arm] 99 Blood Pressure Position [Right Arm] Supine 02 Sat by Pulse Oximetry 98 100 98 Oxygen Delivery Method Room Air Lab Data Lab results reviewed: Yes I reviewed the patient's lab results. Lab Results 01/23/25 03:42: WBC 18.5 H, RBC 4.29, Hgb 12.7, Hct 36.7 L, MCV 85.5, MCH 29.6, MCHC 34.6, RDW 13.8, Plt Count 321, MPV 10.6 H, Neut % (Auto) 81.8 H, Lymph % (Auto) 12.3, [place] % (Auto) 4.9, Eos % (Auto) 0.2, Baso % (Auto) 0.6, Neut # (Auto) 15.1 H, Lymph # (Auto) 2.3, [place] # (Auto) 0.9, Eos # (Auto) 0.0, Baso # (Auto) 0.1, Sodium 140, Potassium 4.2, Chloride 109 H, Carbon Dioxide 22, Anion Gap 13.2, BUN 9, Creatinine 0.60, Estimated Creat Clear 128, Estimated GFR 110, Est GFR ( Amer) 133, Glucose 110 H, Calcium 9.1, Magnesium 1.8, Total Bilirubin 0.5, AST 30, ALT 17, Alkaline Phosphatase 59, Total Protein 7.4, Albumin 4.5, Globulin 2.9, Albumin/Globulin Ratio 1.6, Lipase 95 01/23/25 03:44: SARS-CoV-2 (PCR) Not detected, Influenza A Untype (PCR) Not detected, Influenza Type B (PCR) Not detected 01/23/25 03:42 01/23/25 03:42 Orders (Tests/Meds): ED MEDICATIONS Discontinued Medications Generic Name Dose Route Start Last Admin Trade Name Freq PRN Reason Stop Dose Admin Acetaminophen 1,000 mg 01/23/25 03:39 01/23/25 03:47 Acetaminophen 500mg Tab PO 01/23/25 03:40 1,000 mg ONCE ONE Administration Sodium Chloride 1,000 mls @ 999 mls/hr 01/23/25 03:45 01/23/25 04:50 Sod Chlor 0.9% 1000ml Bag IV 01/23/25 04:45 Infused .Q1H1M HUNG Infusion Magnesium Sulfate 2 gm in 50 mls @ 150 mls/hr 01/23/25 03:39 01/23/25 04:50 Magnesium Sulfate 2gm/50ml Premix IV 01/23/25 03:58 Infused ONCE ONE Infusion Ketorolac Tromethamine 30 mg 01/23/25 03:39 01/23/25 03:47 Ketorolac 30mg/Ml Vial IV 01/23/25 03:40 30 mg ONCE ONE Administration Prochlorperazine Edisylate 10 mg 01/23/25 03:39 01/23/25 03:46 Prochlorperazine 10mg/2ml Vial IV 01/23/25 03:40 10 mg ONCE ONE Administration ORDERS Category Date Time Status CBC w/Auto Diff [Complete Blood Count Auto Diff] Stat Lab 01/23/25 03:42 Completed CMP [Comprehensive Metabolic Panel] Stat Lab 01/23/25 03:42 Completed Lipase Stat Lab 01/23/25 03:42 Completed Magnesium Stat Lab 01/23/25 03:42 Completed Rapid PCR Covid and Flu A/B Stat Lab 01/23/25 03:44 Completed Medical Decision Narrative: 44-year-old female with history headaches, IBS, hysterectomy presents for several hours of headache, body aches, malaise. History was obtained via interactive discussion with patient. On arrival, patient is [afebrile, hemodynamically stable, satting appropriately, alert, oriented x4, GCS 15], moving all extremities spontaneously. Full physical exam performed and significant for no significant physical exam abnormalities Differential includes but is not limited to COVID, flu, URI, migraine headache, tension headache. Patient was given migraine cocktail for symptomatic management and correction of underlying abnormalities. Workup initiated including basic labs, COVID flu swab. On re-evaluation, patient [remains afebrile, HD stable.] Laboratory workup independently interpreted by me and significant for leukocytosis with white count of 18, no significant abnormalities on chemistry.. . Urinalysis, imaging, antibiotics was considered, but deemed unnecessary due to likely viral illness. On reassessment patient reports symptomatic improvement. Headache markedly improved. Patient's presentation seems most consistent with a viral illness. Patient was discharged in stable condition. Return precautions given.. Procedures Risk/Benefits of Procedure(s) Were Explained: Yes Critical Care Critical Care Time Critical Care Time: No
[2025-01-23 03:40] VITALS: BP 149/74; PULSE 94; RESP 20; TEMP 37; O2SAT 100; BMI 22.8
[2025-01-23] MEDS: PROCHLORPERAZINE 10MG/2ML VIAL 10 MG IV (03:46)
[2025-01-23] MEDS: MAGNESIUM SULFATE IN WATER 2 GM/50 ML PIGGYBACK IV (03:47)
[2025-01-23] MEDS: 0.9 % SODIUM CHLORIDE 1000ML 1,000 ML 999 ML IV (03:47)
[2025-01-23] MEDS: KETOROLAC 30MG/ML VIAL 30 MG IV (03:47)
[2025-01-23] MEDS: ACETAMINOPHEN 500MG TAB 1000 MG PO (03:47)
[2025-01-23 03:49] LABS: Coronavirus 19, PCR Not Detected (NotDetected); Influenza A, PCR Not Detected (NotDetected); Influenza B, PCR Not Detected (NotDetected)
[2025-01-23 03:50] LABS: Hematocrit 36.7 % (37.0-47.0); Hemoglobin 12.7 g/dL (12.2-16.2); Immature Granulocytes % 0.2 %; Mean Corpuscular HGB Conc 34.6 g/dL (31.8-35.4); Mean Corpuscular Hemoglobin 29.6 pg (27.0-31.2); Mean Corpuscular Volume 85.5 fl (81-99); Nucleated Red Blood Cells % 0 %; Platelet Count 321 K/mm3 (142-424); Red Blood Count 4.29 M/mm3 (4.20-5.40); Red Cell Distribution Width-SD 42.6 fL; White Blood Count 18.5 K/mm3 (4.8-10.8)
[2025-01-23 04:00] VITALS: BP 144/62; PULSE 109; RESP 16; TEMP 36.7; O2SAT 98
[2025-01-23 04:01] LABS: Albumin Level 4.5 g/dl (3.5-5.0); Chloride 109 mmol/L (98-107); Potassium 4.2 mmoL/L (3.5-5.1); Sodium 140 mmol/L (136-145)
[2025-01-23 04:03] LABS: Blood Urea Nitrogen 9 mg/dl (7-17); Creatinine Clearance Estimated 128 mL/min (50-200); Creatinine,Serum 0.60 mg/dl (0.52-1.04); Estimated Glomerular Filt Rate 110 ml/min (>60); GFR (African American) 133 ML/MIN (>60)
[2025-01-23 04:04] LABS: Alanine Aminotransferase 17 U/L (12-78); Albumin/Globulin Ratio 1.6 (1.1-1.8); Alkaline Phosphatase 59 U/L (38-126); Anion Gap 13.2 mEq/L (5-15); Aspartate Amino Transferase 30 U/L (14-36); Bilirubin,Total 0.5 mg/dl (0.2-1.3); Calcium 9.1 mg/dl (8.4-10.2); Carbon Dioxide 22 mmol/L (22.0-30.0); Globulin 2.9 g/dL (1.3-3.2); Glucose 110 mg/dl (74-100); Total Protein,Serum 7.4 g/dl (6.3-8.2)
[2025-01-23 04:16] LABS: Lipase 95 U/L (23-300); Magnesium 1.8 mg/dl (1.6-2.3)
[2025-01-23 04:54] VITALS: BP 140/68; PULSE 68; RESP 18; TEMP 36.6; O2SAT 98
[2025-01-23 05:05] VITALS: BP 140/68; PULSE 68; RESP 18; TEMP 36.6; O2SAT 98
== END 2025-01-23 05:06 | disposition home or self-care (01) ==
PROVIDERS: Emergency Provider Emergency Medicine; PCP Family Medicine
DX: R51.9 Headache, unspecified (principal); R53.83 Other fatigue; M79.18 Myalgia, other site
CPT/HCPCS: 80053; 83690; 83735; 85025; 87636; 96365; 96367; 96375; 99284; 99285; J0780; J1885; J3475; J7030